=== PATIENT | male | born 1955 | race Caucasian/White ===

== ENCOUNTER 2017-12-28 06:08 | Inpatient (IN) ==
[2017-12-28] MEDS ORDERED: DILTIAZEM 50 MG/10 ML VIAL IV ONE (06:27)
[2017-12-28] MEDS ORDERED: DILTIAZEM 25 MG/5 ML VIAL IV ONE (06:27)
[2017-12-28] MEDS ORDERED: SODIUM CHLORIDE 0.9% 100 ML IV ONE (06:28)
[2017-12-28] MEDS ORDERED: DILTIAZEM 100 MG VIAL.ADD IV ONE (06:28)
[2017-12-28] MEDS ORDERED: DILTIAZEM 50 MG/10 ML VIAL IV STA ×2 (06:35→07:20)
[2017-12-28] MEDS ORDERED: SODIUM CHLORIDE 0.9% 500 ML IV STA (06:35)
[2017-12-28] MEDS ORDERED: DILTIAZEM INJ 100 MG in SODIUM CHLORIDE 0.9% 100 ML IV SCH (07:00)
[2017-12-28 07:02] LABS: Basophils # 0.1 10*3/uL (0.0-0.2); Basophils % 0.7 % (0.0-0.8); Eosinophils % 0.3 % (0.00-10.9); Hematocrit 29.8 VOL% (42.0-52.0); Hemoglobin 10.1 GM/DL (14.0-18.0); Immature Granulocytes % 1.4 %; Immature Granulocytes Absolute 0.13 #; Lymphocytes # 2.3 10*3/uL (1.4-4.0); Lymphocytes % 24.5 % (21.2-54.2); Mean Corpuscular HGB Conc 33.9 GM/DL (32-36); Mean Corpuscular Hemoglobin 32 PG (27-34); Mean Corpuscular Volume 94.9 FL (87-102); Mean Platelet Volume 13.3 FL (9.6-12.0); Monocytes # 4.1 10*3/uL (0.11-0.8); NRBC # 0.34 10*3/uL; Neutrophils # 2.6 10*3/uL (1.4-7.4); Neutrophils % 28.1 % (38.7-73.9); Red Blood Count 3.14 MC/CUMM (3.8-5.5); Red Cell Distribution Width 16.6 % (9.3-17.3); White Blood Count 9.2 T/CUMM (4-12)
[2017-12-28 07:05] LABS: Platelet Count 77 T/CUMM (130-400)
[2017-12-28 07:15] LABS: Albumin 3.5 G/DL (3.4-5.0); Bilirubin,Total 0.4 MG/DL (0.2-1.0); Calcium 9.2 MG/DL (8.5-10.1); Potassium 3.5 MMOL/L (3.5-5.1); Thyroid Stimulating Hormone 1.55 uIU/ml (0.358-3.74); Total Protein 6.9 G/DL (6.4-8.3)
[2017-12-28 07:24] LABS: Band Neutrophils 3 % (0-10); Lymphocytes 56 % (20-55); Segmented Neutrophils 28 % (50-85); Total Cells Counted 100
[2017-12-28 07:26] LABS: Anisocytosis Slight; Macrocytosis 1+; Platelet Estimate Decreased
[2017-12-28 08:16] LABS: Barbiturates Screen,Urine Negative (Negative); Benzodiazepines Screen,Urine Negative (Negative); Cannabinoid Screen,Urine Negative (Negative); Opiate Screen,Urine Negative (Negative); Phencyclidine Screen,Urine Negative (Negative)
[2017-12-28] MEDS ORDERED: LACTULOSE 20 GM/30 ML UDCUP PO PRN (09:28)
[2017-12-28] MEDS ORDERED: ACETAMINOPHEN 325 MG TABLET PO PRN (09:28)
[2017-12-28] MEDS ORDERED: POTASSIUM CHLORIDE RIDER 10 MEQ in PREMIX 1 EACH IV PRN (09:28)
[2017-12-28] MEDS ORDERED: diphenhydrAMINE CAP 25 MG CAPSULE PO PRN (09:28)
[2017-12-28] MEDS ORDERED: ONDANSETRON 4 MG/2 ML VIAL IV PRN (09:28)
[2017-12-28] MEDS ORDERED: MAGNESIUM SULF RIDER 4 GM in PREMIX 1 EACH IV PRN (09:28)
[2017-12-28] MEDS ORDERED: MAGNESIUM SULF RIDER 2 GM in PREMIX 1 EACH IV PRN (09:28)
[2017-12-28 09:45] LABS: Barbiturates Screen,Urine Negative (Negative); Benzodiazepines Screen,Urine Negative (Negative); Cannabinoid Screen,Urine Negative (Negative); Opiate Screen,Urine Negative (Negative); Phencyclidine Screen,Urine Negative (Negative)
[2017-12-28] MEDS ORDERED: ASPIRIN EC 81 MG TABLET PO SCH (10:00)
[2017-12-28] MEDS ORDERED: ALBUTEROL/IPRATROPIUM 3 ML NEB RESP TX PRN (10:50)
[2017-12-28] MEDS ORDERED: DEXTROSE 50% 25 GM/50 ML VIAL IV PRN (11:13)
[2017-12-28] MEDS ORDERED: GLUCAGON 1 MG VIAL IM PRN (11:13)
[2017-12-28] MEDS: ENOXAPARIN 100 MG/ML SYRINGE SUBCUT SCH (11:35)
[2017-12-28] MEDS: POTASSIUM CHLORIDE 20 MEQ TABLET PO PRN ×2 (11:35→15:47)
[2017-12-28] MEDS: INSULIN REGULAR 100 UNIT/ML SUBCUT SCH ×3 (11:38→21:33)
[2017-12-28] MEDS: SODIUM CHLORIDE 0.9% 1,000 ML IV SCH ×2 (11:38→22:50)
[2017-12-28 11:44] LABS: Basophils # 0.1 10*3/uL (0.0-0.2); Basophils % 0.5 % (0.0-0.8); Eosinophils % 0.3 % (0.00-10.9); Hematocrit 31.9 VOL% (42.0-52.0); Hemoglobin 10.6 GM/DL (14.0-18.0); Immature Granulocytes % 1.7 %; Immature Granulocytes Absolute 0.17 #; Lymphocytes # 2.9 10*3/uL (1.4-4.0); Lymphocytes % 28.1 % (21.2-54.2); Mean Corpuscular HGB Conc 33.2 GM/DL (32-36); Mean Corpuscular Hemoglobin 32 PG (27-34); Mean Corpuscular Volume 95.8 FL (87-102); Mean Platelet Volume 12.5 FL (9.6-12.0); Monocytes # 4.6 10*3/uL (0.11-0.8); Monocytes % 44.6 % (1.7-12.7); NRBC # 0.55 10*3/uL; Neutrophils # 2.6 10*3/uL (1.4-7.4); Neutrophils % 24.8 % (38.7-73.9); Red Blood Count 3.33 MC/CUMM (3.8-5.5); Red Cell Distribution Width 16.8 % (9.3-17.3); White Blood Count 10.3 T/CUMM (4-12)
[2017-12-28 11:57] LABS: Platelet Count 88 T/CUMM (130-400)
[2017-12-28] MEDS ORDERED: ENOXAPARIN 40 MG/0.4 ML SYRINGE SUBCUT SCH (12:00)
[2017-12-28 12:29] LABS: Atypical Lymphocytes Moderate; Band Neutrophils 1 % (0-10); Eosinophils 1 % (0-10); Lymphocytes 47 % (20-55); Nucleated Red Blood Cells 8 (0-5); Segmented Neutrophils 29 % (50-85); Total Cells Counted 100
[2017-12-28 12:30] LABS: Macrocytosis 1+; Platelet Estimate Decreased; Polychromasia Slight
[2017-12-28 12:34] LABS: Folate 18.2 NG/ML (5.4-24.0); Vitamin B12 910 PG/ML (211-911)
[2017-12-28 12:57] LABS: Sedimentation Rate-Westergren 97 MM/HR (0-20)
[2017-12-28] MEDS: DILTIAZEM CD 120 MG CAPSULE PO SCH (13:11)
[2017-12-28] MEDS: methylPREDNISolone SOD SUC 40 MG/1 ML VIAL IV SCH (13:12)
[2017-12-28] MEDS: tiZANidine 4 MG TABLET PO SCH ×2 (15:47→21:32)
[2017-12-28] MEDS ORDERED: cycloSPORINE OPH EMUL 1 VIAL BOTH EYES SCH (21:00)
[2017-12-28] MEDS ORDERED: ATORVASTATIN 20 MG TABLET PO SCH (21:00)
[2017-12-28] MEDS ORDERED: BUDESONIDE/FORMOTEROL 160-4.5 INHALER 6 GM INH SCH (21:00)
[2017-12-28] MEDS ORDERED: AMITRIPTYLINE 100 MG TABLET PO SCH (21:00)
[2017-12-28] MEDS: PREGABALIN 100 MG CAPSULE PO SCH (21:32)
[2017-12-29] MEDS: ENOXAPARIN 100 MG/ML SYRINGE SUBCUT SCH (00:02)
[2017-12-29] MEDS: methylPREDNISolone SOD SUC 40 MG/1 ML VIAL IV SCH (00:03)
[2017-12-29 04:59] LABS: Basophils # 0.1 10*3/uL (0.0-0.2); Basophils % 0.7 % (0.0-0.8); Eosinophils % 0.3 % (0.00-10.9); Hematocrit 28.3 VOL% (42.0-52.0); Hemoglobin 9.6 GM/DL (14.0-18.0); Immature Granulocytes % 3.6 %; Immature Granulocytes Absolute 0.33 #; Lymphocytes # 2.4 10*3/uL (1.4-4.0); Lymphocytes % 26.7 % (21.2-54.2); Mean Corpuscular HGB Conc 33.9 GM/DL (32-36); Mean Corpuscular Hemoglobin 32 PG (27-34); Mean Corpuscular Volume 93.7 FL (87-102); Mean Platelet Volume 13.5 FL (9.6-12.0); Monocytes # 2.9 10*3/uL (0.11-0.8); Monocytes % 31.4 % (1.7-12.7); NRBC # 0.35 10*3/uL; Neutrophils # 3.4 10*3/uL (1.4-7.4); Neutrophils % 37.3 % (38.7-73.9); Platelet Count 62 T/CUMM (130-400); Red Blood Count 3.02 MC/CUMM (3.8-5.5); White Blood Count 9.1 T/CUMM (4-12)
[2017-12-29 05:22] LABS: Risk Ratio 3.05; VLDL CHOLESTEROL 19.2 MG/DL
[2017-12-29 05:25] LABS: Albumin 3.3 G/DL (3.4-5.0); Bilirubin,Total 0.7 MG/DL (0.2-1.0); Calcium 9.9 MG/DL (8.5-10.1); Osmolality,Calculated 279.5 MOS/KG (273-304); Potassium 4.5 MMOL/L (3.5-5.1); Total Protein 7.1 G/DL (6.4-8.3)
[2017-12-29 05:35] LABS: Myelocytes 4 %; Nucleated Red Blood Cells 1 (0-5)
[2017-12-29 05:36] LABS: Band Neutrophils 4 % (0-10); Lymphocytes 33 % (20-55); Metamyelocytes 2 %; Segmented Neutrophils 38 % (50-85)
[2017-12-29 05:42] LABS: Total Cells Counted 98
[2017-12-29 05:47] LABS: Anisocytosis 1+; Hypochromasia 1+
[2017-12-29 05:48] LABS: Ovalocytes 1+; Platelet Estimate Decreased
[2017-12-29 07:46] VITALS: BP 121/61
[2017-12-29] MEDS: PREGABALIN 100 MG CAPSULE PO SCH (08:32)
[2017-12-29] MEDS: DILTIAZEM CD 120 MG CAPSULE PO SCH (08:32)
[2017-12-29] MEDS: tiZANidine 4 MG TABLET PO SCH (08:32)
[2017-12-29] MEDS: INSULIN REGULAR 100 UNIT/ML SUBCUT SCH (08:33)
[2017-12-29] MEDS ORDERED: FLUTICASONE 50 MCG NASAL SPRAY 16 GM BOTTLE BOTH NARES SCH (09:00)
[2017-12-29] MEDS ORDERED: PANTOPRAZOLE 40 MG TABLET PO SCH (09:00)
[2017-12-30 09:54] LABS: Hemoglobin A1 (Alkaline) 96.8 % (96.5-98.5); Hemoglobin A2 (Alkaline) 3.2 % (1.5-3.5)
== END 2017-12-29 11:45 | disposition home or self-care (01) | DRG 309 ==
LOC: N.ED 06:08 → N.EDINP 09:28 → N.TELEN 10:45
PROVIDERS: ADMIT Hospitalist; ATTEND Hospitalist

== ENCOUNTER 2017-12-29 16:38 | Inpatient (IN) ==
[2017-12-29] MEDS ORDERED: DILTIAZEM 25 MG/5 ML VIAL IV ONE (16:58)
[2017-12-29] MEDS ORDERED: SODIUM CHLORIDE 0.9% 100 ML IV ONE (17:04)
[2017-12-29] MEDS ORDERED: DILTIAZEM 100 MG VIAL.ADD IV ONE (17:04)
[2017-12-29] MEDS ORDERED: DILTIAZEM 50 MG/10 ML VIAL IV STA ×3 (17:22→18:26)
[2017-12-29] MEDS ORDERED: MORPHINE 4 MG/1 ML VIAL IV STA (17:23)
[2017-12-29] MEDS ORDERED: ONDANSETRON 4 MG/2 ML VIAL IV STA (17:23)
[2017-12-29] MEDS ORDERED: DILTIAZEM INJ 100 MG in SODIUM CHLORIDE 0.9% 100 ML IV SCH (17:30)
[2017-12-29 18:11] LABS: Basophils # 0.1 10*3/uL (0.0-0.2); Basophils % 0.4 % (0.0-0.8); Eosinophils % 0.1 % (0.00-10.9); Hematocrit 28.9 VOL% (42.0-52.0); Hemoglobin 9.8 GM/DL (14.0-18.0); Immature Granulocytes % 4.3 %; Immature Granulocytes Absolute 0.59 #; Lymphocytes # 1.9 10*3/uL (1.4-4.0); Lymphocytes % 14.1 % (21.2-54.2); Mean Corpuscular HGB Conc 33.9 GM/DL (32-36); Mean Corpuscular Hemoglobin 32 PG (27-34); Mean Corpuscular Volume 94.4 FL (87-102); Monocytes # 7.1 10*3/uL (0.11-0.8); Monocytes % 51.8 % (1.7-12.7); NRBC # 0.81 10*3/uL; Neutrophils % 29.3 % (38.7-73.9); Platelet Count 92 T/CUMM (130-400); Red Blood Count 3.06 MC/CUMM (3.8-5.5); Red Cell Distribution Width 16.4 % (9.3-17.3); White Blood Count 13.7 T/CUMM (4-12)
[2017-12-29 18:26] LABS: INR 1.1; PT Patient Result 11.3 SECS; Partial Thromboplastin Time 25.8 SECS (0-40)
[2017-12-29] MEDS ORDERED: FUROSEMIDE 20 MG TABLET PO STA (18:39)
[2017-12-29 18:51] LABS: Albumin 3.6 G/DL (3.4-5.0); Bilirubin,Total 0.5 MG/DL (0.2-1.0); Calcium 9.6 MG/DL (8.5-10.1); Potassium 3.6 MMOL/L (3.5-5.1); Thyroid Stimulating Hormone 0.928 uIU/ml (0.358-3.74); Total Protein 6.8 G/DL (6.4-8.3)
[2017-12-29 19:36] LABS: Apearance,Urine CLEAR (Clear); Bilirubin,Urine Negative (Negative); Blood, Urine Small mg/dL (Negative); Glucose,Urine (UA) Negative (Negative); Hyaline Casts,Urine 5 /LPF (0-3); Ketones,Urine Negative (Negative); Mucus,Urine Occasional /LPF (Occasional); Nitrite,Urine Negative (Negative); Protein,Urine Negative; Urine Color Yellow (Yellow); Urine Specific Gravity 1.011 (1.001-1.035); Urine Urobilinogen < 2.0 EU/DL (0.2-1.0); WBC,Urine 1 /HPF (0-6)
[2017-12-29] MEDS ORDERED: ONDANSETRON 4 MG/2 ML VIAL IV PRN (19:42)
[2017-12-29] MEDS ORDERED: ALBUTEROL 2.5 MG/3 ML NEB RESP TX PRN (19:45)
[2017-12-29] MEDS ORDERED: DILTIAZEM CD 120 MG CAPSULE PO STA (19:49)
[2017-12-29 19:56] LABS: Barbiturates Screen,Urine Negative (Negative); Benzodiazepines Screen,Urine Negative (Negative); Cannabinoid Screen,Urine Negative (Negative); Opiate Screen,Urine Positive (Negative); Phencyclidine Screen,Urine Negative (Negative)
[2017-12-29] MEDS ORDERED: ENOXAPARIN 40 MG/0.4 ML SYRINGE SUBCUT SCH (21:00)
[2017-12-29] MEDS ORDERED: ATORVASTATIN 20 MG TABLET PO SCH (21:00)
[2017-12-29] MEDS ORDERED: ENOXAPARIN 60 MG/0.6 ML SYRINGE SUBCUT ONE ×2 (22:00→23:00)
[2017-12-29] MEDS ORDERED: ASPIRIN EC 325 MG TABLET PO ONE (22:00)
[2017-12-29] MEDS: AMITRIPTYLINE 100 MG TABLET PO SCH (23:00)
[2017-12-29] MEDS: PREGABALIN 100 MG CAPSULE PO SCH (23:00)
[2017-12-29] MEDS: tiZANidine 4 MG TABLET PO SCH (23:00)
[2017-12-29] MEDS ORDERED: ENOXAPARIN 100 MG/ML SYRINGE SUBCUT SCH (23:00)
[2017-12-29] MEDS: BUDESONIDE/FORMOTEROL 160-4.5 INHALER 6 GM INH SCH (23:02)
[2017-12-29] MEDS: cycloSPORINE OPH EMUL 1 VIAL BOTH EYES SCH (23:02)
[2017-12-30 02:50] LABS: Calcium 9.1 MG/DL (8.5-10.1); Osmolality,Calculated 294.7 MOS/KG (273-304); Potassium 3.6 MMOL/L (3.5-5.1)
[2017-12-30] MEDS: ACETAMINOPHEN 325 MG TABLET PO PRN ×2 (03:14→21:24)
[2017-12-30] MEDS ORDERED: TICAGRELOR 90 MG TABLET PO ONE (07:10)
[2017-12-30] MEDS ORDERED: DIAZEPAM 5 MG TABLET PO ONE (07:17)
[2017-12-30] MEDS ORDERED: diphenhydrAMINE CAP 25 MG CAPSULE PO ONE (07:17)
[2017-12-30] MEDS ORDERED: SODIUM CHLORIDE 0.45% 1,000 ML IV SCH (07:30)
[2017-12-30] MEDS: DILTIAZEM CD 240 MG CAPSULE PO SCH ×2 (07:54→08:24)
[2017-12-30] MEDS: PANTOPRAZOLE 40 MG TABLET PO SCH ×2 (07:54→08:25)
[2017-12-30] MEDS: ASPIRIN EC 81 MG TABLET PO SCH (08:24)
[2017-12-30] MEDS: TICAGRELOR 90 MG TABLET PO SCH ×2 (08:24→21:14)
[2017-12-30] MEDS: FLUTICASONE 50 MCG NASAL SPRAY 16 GM BOTTLE BOTH NARES SCH (08:24)
[2017-12-30] MEDS: BUDESONIDE/FORMOTEROL 160-4.5 INHALER 6 GM INH SCH ×3 (08:25→21:27)
[2017-12-30] MEDS: PREGABALIN 100 MG CAPSULE PO SCH ×2 (08:25→21:14)
[2017-12-30] MEDS: cycloSPORINE OPH EMUL 1 VIAL BOTH EYES SCH ×2 (08:25→21:14)
[2017-12-30] MEDS: tiZANidine 4 MG TABLET PO SCH ×3 (08:26→21:14)
[2017-12-30] MEDS ORDERED: LIDOCAINE 1% 20 ML VIAL ONE (08:30)
[2017-12-30] MEDS ORDERED: HEPARIN/NACL 0.9% 2 UNITS/ML 1,000 ML IV ONE (08:30)
[2017-12-30] MEDS ORDERED: ASPIRIN CHEW 81 MG TABLET PO ONE (08:49)
[2017-12-30] MEDS ORDERED: MIDAZOLAM 2 MG/2 ML VIAL ONE ×2 (08:49→09:36)
[2017-12-30] MEDS ORDERED: fentaNYL 100 MCG/2 ML VIAL ONE (08:49)
[2017-12-30] MEDS ORDERED: NITROGLYCERIN DRIP 50 MG/250 ML BOTTLE IV ONE (08:50)
[2017-12-30] MEDS ORDERED: VERAPAMIL 5 MG/2 ML VIAL ONE (08:50)
[2017-12-30 08:57] LABS: Hypochromasia 1+; Lymphocytes 33 % (20-55); Nucleated Red Blood Cells 14 (0-5); Platelet Estimate Decreased; Segmented Neutrophils 24 % (50-85); Total Cells Counted 100
[2017-12-30 08:58] LABS: Macrocytosis Slight; Ovalocytes Slight
[2017-12-30] MEDS ORDERED: ENOXAPARIN 60 MG/0.6 ML SYRINGE ONE (08:59)
[2017-12-30] MEDS ORDERED: MORPHINE 10 MG/1 ML VIAL ONE (09:34)
[2017-12-30] MEDS ORDERED: HEPARIN/NACL 0.9% 2 UNITS/ML 500 ML IV ONE (09:38)
[2017-12-30] MEDS ORDERED: ZALEPLON 5 MG CAPSULE PO PRN (10:16)
[2017-12-30] MEDS ORDERED: MORPHINE 4 MG/1 ML VIAL IV PRN (10:16)
[2017-12-30] MEDS: ATORVASTATIN 40 MG TABLET PO SCH (21:14)
[2017-12-30] MEDS: AMITRIPTYLINE 100 MG TABLET PO SCH (21:14)
[2017-12-31 04:53] LABS: Basophils # 0.1 10*3/uL (0.0-0.2); Basophils % 0.7 % (0.0-0.8); Eosinophils % 0.1 % (0.00-10.9); Hematocrit 25.6 VOL% (42.0-52.0); Hemoglobin 8.4 GM/DL (14.0-18.0); Immature Granulocytes % 2.8 %; Immature Granulocytes Absolute 0.28 #; Lymphocytes # 2.7 10*3/uL (1.4-4.0); Lymphocytes % 27.1 % (21.2-54.2); Mean Corpuscular HGB Conc 32.8 GM/DL (32-36); Mean Corpuscular Hemoglobin 32 PG (27-34); Mean Corpuscular Volume 97.7 FL (87-102); Mean Platelet Volume 13.3 FL (9.6-12.0); Monocytes % 49.9 % (1.7-12.7); NRBC # 0.46 10*3/uL; Neutrophils % 19.4 % (38.7-73.9); Platelet Count 69 T/CUMM (130-400); Red Blood Count 2.62 MC/CUMM (3.8-5.5); Red Cell Distribution Width 17.4 % (9.3-17.3); White Blood Count 10.1 T/CUMM (4-12)
[2017-12-31 05:15] LABS: Band Neutrophils 3 % (0-10); Eosinophils 1 % (0-10); Lymphocytes 50 % (20-55); Nucleated Red Blood Cells 5 (0-5); Segmented Neutrophils 17 % (50-85); Total Cells Counted 100
[2017-12-31 05:16] LABS: Atypical Lymphocytes Few; Hypochromasia 1+; Platelet Estimate Decreased
[2017-12-31 05:17] LABS: Macrocytosis Slight
[2017-12-31 05:23] LABS: Calcium 9.6 MG/DL (8.5-10.1); Osmolality,Calculated 278.5 MOS/KG (273-304); Potassium 3.7 MMOL/L (3.5-5.1)
[2017-12-31 05:24] LABS: Calcium 9.6 MG/DL (8.5-10.1); Osmolality,Calculated 278.5 MOS/KG (273-304); Potassium 3.6 MMOL/L (3.5-5.1)
[2017-12-31] MEDS: DILTIAZEM CD 240 MG CAPSULE PO SCH (08:42)
[2017-12-31] MEDS: PANTOPRAZOLE 40 MG TABLET PO SCH (08:42)
[2017-12-31] MEDS: LISINOPRIL 2.5 MG TABLET PO SCH (08:42)
[2017-12-31] MEDS: PREGABALIN 100 MG CAPSULE PO SCH ×2 (08:42→22:00)
[2017-12-31] MEDS: FLUTICASONE 50 MCG NASAL SPRAY 16 GM BOTTLE BOTH NARES SCH (08:43)
[2017-12-31] MEDS: TICAGRELOR 90 MG TABLET PO SCH ×2 (08:43→21:41)
[2017-12-31] MEDS: BUDESONIDE/FORMOTEROL 160-4.5 INHALER 6 GM INH SCH ×2 (08:43→22:00)
[2017-12-31] MEDS: tiZANidine 4 MG TABLET PO SCH ×3 (08:43→21:41)
[2017-12-31] MEDS: cycloSPORINE OPH EMUL 1 VIAL BOTH EYES SCH ×2 (08:44→22:00)
[2017-12-31] MEDS: sitaGLIPtin 25 MG TABLET PO SCH (12:45)
[2017-12-31] MEDS: ATORVASTATIN 40 MG TABLET PO SCH (21:41)
[2017-12-31] MEDS: AMITRIPTYLINE 100 MG TABLET PO SCH (22:00)
[2018-01-01 04:49] LABS: Basophils % 0.5 % (0.0-0.8); Eosinophils % 0.1 % (0.00-10.9); Hematocrit 24.2 VOL% (42.0-52.0); Hemoglobin 8.4 GM/DL (14.0-18.0); Immature Granulocytes % 1.7 %; Immature Granulocytes Absolute 0.14 #; Lymphocytes # 2.4 10*3/uL (1.4-4.0); Lymphocytes % 28.7 % (21.2-54.2); Mean Corpuscular HGB Conc 34.7 GM/DL (32-36); Mean Corpuscular Hemoglobin 32 PG (27-34); Mean Corpuscular Volume 92.7 FL (87-102); Mean Platelet Volume 13.5 FL (9.6-12.0); Monocytes # 3.9 10*3/uL (0.11-0.8); Monocytes % 47.1 % (1.7-12.7); NRBC # 0.35 10*3/uL; Neutrophils # 1.8 10*3/uL (1.4-7.4); Neutrophils % 21.9 % (38.7-73.9); Platelet Count 62 T/CUMM (130-400); Red Blood Count 2.61 MC/CUMM (3.8-5.5); Red Cell Distribution Width 16.7 % (9.3-17.3); White Blood Count 8.2 T/CUMM (4-12)
[2018-01-01 05:03] LABS: Calcium 8.9 MG/DL (8.5-10.1); Osmolality,Calculated 277.5 MOS/KG (273-304); Potassium 3.4 MMOL/L (3.5-5.1)
[2018-01-01] MEDS: ACETAMINOPHEN 325 MG TABLET PO PRN (05:06)
[2018-01-01 05:12] LABS: Eosinophils 1 % (0-10); Hypochromasia 1+; Lymphocytes 48 % (20-55); Macrocytosis Slight; Nucleated Red Blood Cells 6 (0-5); Ovalocytes Slight; Platelet Estimate Decreased; Segmented Neutrophils 20 % (50-85); Total Cells Counted 100
[2018-01-01 05:15] LABS: Risk Ratio 3.11
[2018-01-01 05:18] LABS: % Iron Saturation 31.3 % (18-50); Total Protein 6.2 G/DL (6.4-8.3)
[2018-01-01 08:16] LABS: Immunoglobulin A (Chem) 220 MG/DL (70-400); Immunoglobulin G (Chem) 675 MG/DL (700-1600); Immunoglobulin M (Chem) 56 MG/DL (40-230); Total Protein (Chem) 6.2 G/DL (6.4-8.3)
[2018-01-01] MEDS: TICAGRELOR 90 MG TABLET PO SCH ×2 (09:02→21:06)
[2018-01-01] MEDS: LISINOPRIL 2.5 MG TABLET PO SCH (09:02)
[2018-01-01] MEDS: tiZANidine 4 MG TABLET PO SCH ×3 (09:02→21:06)
[2018-01-01] MEDS: PREGABALIN 100 MG CAPSULE PO SCH ×2 (09:02→21:06)
[2018-01-01] MEDS: sitaGLIPtin 25 MG TABLET PO SCH (09:02)
[2018-01-01] MEDS: PANTOPRAZOLE 40 MG TABLET PO SCH (09:02)
[2018-01-01] MEDS: DILTIAZEM CD 240 MG CAPSULE PO SCH (09:02)
[2018-01-01] MEDS: BUDESONIDE/FORMOTEROL 160-4.5 INHALER 6 GM INH SCH ×2 (09:03→21:13)
[2018-01-01] MEDS: FLUTICASONE 50 MCG NASAL SPRAY 16 GM BOTTLE BOTH NARES SCH (09:03)
[2018-01-01] MEDS: cycloSPORINE OPH EMUL 1 VIAL BOTH EYES SCH ×2 (09:05→21:13)
[2018-01-01 10:48] LABS: Albumin (SPE) 3.7 G/DL (3.2-5.3); Albumin (SPE) Rel % 59.8 %; Alpha 1 (SPE) 0.3 G/DL (0.1-0.4); Alpha 1 (SPE) Rel % 4.3 %; Alpha 2 (SPE) 0.8 G/DL (0.4-1.0); Alpha 2 (SPE) Rel % 12.3 %; Beta (SPE) 0.6 G/DL (0.5-1.1); Beta (SPE) Rel % 10.6 %; Gamma (SPE) 0.8 G/DL (0.7-1.7)
[2018-01-01] MEDS: POTASSIUM CHLORIDE 20 MEQ TABLET PO PRN ×3 (13:09→17:06)
[2018-01-01] MEDS: AMITRIPTYLINE 100 MG TABLET PO SCH (21:06)
[2018-01-01] MEDS: ATORVASTATIN 40 MG TABLET PO SCH (21:06)
[2018-01-02 03:50] LABS: Calcium 9.3 MG/DL (8.5-10.1); Osmolality,Calculated 274.8 MOS/KG (273-304); Potassium 4.1 MMOL/L (3.5-5.1)
[2018-01-02] MEDS: LISINOPRIL 2.5 MG TABLET PO SCH (08:47)
[2018-01-02] MEDS: ASPIRIN EC 81 MG TABLET PO SCH (08:48)
[2018-01-02] MEDS: FLUTICASONE 50 MCG NASAL SPRAY 16 GM BOTTLE BOTH NARES SCH (08:48)
[2018-01-02] MEDS: sitaGLIPtin 25 MG TABLET PO SCH (08:48)
[2018-01-02] MEDS: tiZANidine 4 MG TABLET PO SCH (08:48)
[2018-01-02] MEDS: TICAGRELOR 90 MG TABLET PO SCH (08:48)
[2018-01-02] MEDS: BUDESONIDE/FORMOTEROL 160-4.5 INHALER 6 GM INH SCH (08:48)
[2018-01-02] MEDS: PREGABALIN 100 MG CAPSULE PO SCH (08:48)
[2018-01-02] MEDS: DILTIAZEM CD 240 MG CAPSULE PO SCH (08:51)
[2018-01-02] MEDS: cycloSPORINE OPH EMUL 1 VIAL BOTH EYES SCH (08:52)
[2018-01-02] MEDS: PANTOPRAZOLE 40 MG TABLET PO SCH (08:52)
[2018-01-02 09:59] LABS: Collection Time,Urine 24 HOURS; Total Protein 24 Hr Ur Result 265 MG/24HR (0-149.1); Total Volume,Urine 2650 ML (400-2000)
[2018-01-02 12:03] VITALS: BP 111/50
[2018-01-02 12:33] LABS: Immuno Free Light Chain Kappa 2.02 MG/DL (0.33-1.94); Immuno Free Light Chain Lambda 1.68 MG/DL (0.57-2.63)
[2018-01-03 09:47] LABS: 24 Hr Protein (Bench) 265 MG/24HR (0-149.1)
== END 2018-01-02 13:57 | disposition home or self-care (01) | DRG 246 ==
LOC: EDBD → EDUNIT# → N.EDINP 16:38 → N.ED 16:38 → SUATTDRO 19:28 → N.TELES 20:24 → SUATTDRO 12-30 08:22 → N.ICU 12-30 10:16 → N.TELES 12-31 19:19
PROVIDERS: ADMIT Internal Medicine; ATTEND Internal Medicine
PROC: CLCCHCL (ICD-10-PCS; 2017-12-30 09:15)

== ENCOUNTER 2018-01-20 17:00 | Inpatient (IN) ==
[2018-01-20 18:11] LABS: Basophils # 0.1 10*3/uL (0.0-0.2); Basophils % 0.5 % (0.0-0.8); Eosinophils % 0.2 % (0.00-10.9); Hematocrit 20.3 VOL% (42.0-52.0); Hemoglobin 6.9 GM/DL (14.0-18.0); Immature Granulocytes % 4.4 %; Immature Granulocytes Absolute 0.73 #; Lymphocytes # 3.1 10*3/uL (1.4-4.0); Lymphocytes % 18.4 % (21.2-54.2); Mean Corpuscular Hemoglobin 32 PG (27-34); Mean Corpuscular Volume 95.3 FL (87-102); Mean Platelet Volume 14.2 FL (9.6-12.0); Monocytes # 9.7 10*3/uL (0.11-0.8); Monocytes % 57.9 % (1.7-12.7); NRBC # 0.56 10*3/uL; Neutrophils # 3.1 10*3/uL (1.4-7.4); Neutrophils % 18.6 % (38.7-73.9); Platelet Count 55 T/CUMM (130-400); Red Blood Count 2.13 MC/CUMM (3.8-5.5); Red Cell Distribution Width 18.4 % (9.3-17.3); White Blood Count 16.7 T/CUMM (4-12)
[2018-01-20 18:22] LABS: INR 1.1; PT Patient Result 11.8 SECS
[2018-01-20 18:32] LABS: Albumin 3.4 G/DL (3.4-5.0); Bilirubin,Total 0.7 MG/DL (0.2-1.0); Calcium 9.7 MG/DL (8.5-10.1); Osmolality,Calculated 276.8 MOS/KG (273-304)
[2018-01-20 18:34] LABS: Apearance,Urine CLEAR (Clear); Bilirubin,Urine Negative (Negative); Blood, Urine Negative (Negative); Glucose,Urine (UA) Negative (Negative); Hyaline Casts,Urine 29 /LPF (0-3); Ketones,Urine Negative (Negative); Mucus,Urine Few /LPF (Occasional); Nitrite,Urine Negative (Negative); Protein,Urine 30 MG/DL; RBC,Urine <1 /HPF (0-4); Urine Color Yellow (Yellow); Urine Specific Gravity 1.014 (1.001-1.035); WBC,Urine 4 /HPF (0-6)
[2018-01-20 18:41] LABS: Barbiturates Screen,Urine Negative (Negative); Benzodiazepines Screen,Urine Negative (Negative); Cannabinoid Screen,Urine Negative (Negative); Opiate Screen,Urine Negative (Negative); Phencyclidine Screen,Urine Negative (Negative)
[2018-01-21 08:14] LABS: Hematocrit 27.2 VOL% (42.0-52.0); Hemoglobin 9.3 GM/DL (14.0-18.0)
[2018-01-21 08:16] LABS: Basophils # 0.1 10*3/uL (0.0-0.2); Basophils % 0.8 % (0.0-0.8); Eosinophils % 0.1 % (0.00-10.9); Hematocrit 27.1 VOL% (42.0-52.0); Hemoglobin 9.4 GM/DL (14.0-18.0); Immature Granulocytes % 5.9 %; Immature Granulocytes Absolute 0.93 #; Lymphocytes # 2.8 10*3/uL (1.4-4.0); Mean Corpuscular HGB Conc 34.7 GM/DL (32-36); Mean Corpuscular Hemoglobin 32 PG (27-34); Mean Corpuscular Volume 93.1 FL (87-102); Monocytes # 7.8 10*3/uL (0.11-0.8); Monocytes % 49.6 % (1.7-12.7); NRBC # 0.51 10*3/uL; Neutrophils % 25.6 % (38.7-73.9); Red Blood Count 2.91 MC/CUMM (3.8-5.5); Red Cell Distribution Width 17.8 % (9.3-17.3); White Blood Count 15.7 T/CUMM (4-12)
[2018-01-21 08:18] LABS: Platelet Count 52 T/CUMM (130-400)
[2018-01-21 08:37] LABS: Calcium 9.8 MG/DL (8.5-10.1); Osmolality,Calculated 279.8 MOS/KG (273-304); Potassium 4.5 MMOL/L (3.5-5.1)
[2018-01-21 08:42] LABS: Atypical Lymphocytes Moderate; Band Neutrophils 1 % (0-10); Lymphocytes 40 % (20-55); Nucleated Red Blood Cells 6 (0-5); Segmented Neutrophils 28 % (50-85); Total Cells Counted 100
[2018-01-21 08:43] LABS: Hypochromasia 1+; Platelet Estimate Decreased
[2018-01-21 09:29] LABS: Hepatitis A Ab IgM Quant 0.16 Index; Hepatitis A Ab IgM Result Negative (Negative); Hepatitis B Core IgM Quant 0.08 Index; Hepatitis B Core IgM Result Negative (Negative); Hepatitis B Surface Ag Quant < 0.10 Index; Hepatitis B Surface Ag Result Negative (Negative); Hepatitis C Virus Ab Quant 0.15 Index; Hepatitis C Virus Ab Result Negative (Negative)
[2018-01-22 06:25] LABS: Basophils # 0.1 10*3/uL (0.0-0.2); Basophils % 0.6 % (0.0-0.8); Eosinophils % 0.1 % (0.00-10.9); Hematocrit 24.4 VOL% (42.0-52.0); Immature Granulocytes % 6.2 %; Immature Granulocytes Absolute 1.11 #; Lymphocytes # 3.1 10*3/uL (1.4-4.0); Lymphocytes % 17.2 % (21.2-54.2); Mean Corpuscular HGB Conc 32.8 GM/DL (32-36); Mean Corpuscular Hemoglobin 32 PG (27-34); Mean Corpuscular Volume 97.2 FL (87-102); Mean Platelet Volume 14.5 FL (9.6-12.0); Monocytes # 9.1 10*3/uL (0.11-0.8); Monocytes % 51.1 % (1.7-12.7); NRBC # 0.84 10*3/uL; Neutrophils # 4.4 10*3/uL (1.4-7.4); Neutrophils % 24.8 % (38.7-73.9); Red Blood Count 2.51 MC/CUMM (3.8-5.5); Red Cell Distribution Width 18.1 % (9.3-17.3); White Blood Count 17.9 T/CUMM (4-12)
[2018-01-22 06:26] LABS: Platelet Count 48 T/CUMM (130-400)
[2018-01-22 06:48] LABS: Atypical Lymphocytes Few; Band Neutrophils 1 % (0-10); Hypochromasia 1+; Lymphocytes 33 % (20-55); Nucleated Red Blood Cells 5 (0-5); Ovalocytes Slight; Platelet Estimate Decreased; Segmented Neutrophils 21 % (50-85); Total Cells Counted 100
[2018-01-22 07:13] LABS: Calcium 9.9 MG/DL (8.5-10.1); Osmolality,Calculated 279.8 MOS/KG (273-304); Potassium 4.5 MMOL/L (3.5-5.1); Troponin I 0.862 NG/ML (0.00-0.045)
[2018-01-22 15:04] VITALS: BP 115/70
== END 2018-01-22 15:05 | disposition home or self-care (01) | DRG 192 ==
LOC: EDUNIT# → EDBD → N.ED 17:00 → SUATTDRO 18:53 → N.EDINP 18:53 → N.CC 19:55 → N.3E 01-21 12:07
PROVIDERS: ADMIT Internal Medicine; ATTEND Internal Medicine

== ENCOUNTER 2018-01-31 16:57 | Inpatient (IN) ==
[2018-01-31 18:41] LABS: Basophils # 0.1 10*3/uL (0.0-0.2); Basophils % 0.3 % (0.0-0.8); Eosinophils % 0.1 % (0.00-10.9); Hematocrit 25.1 VOL% (42.0-52.0); Hemoglobin 8.3 GM/DL (14.0-18.0); Immature Granulocytes % 7.3 %; Lymphocytes % 15.9 % (21.2-54.2); Mean Corpuscular HGB Conc 33.1 GM/DL (32-36); Mean Corpuscular Hemoglobin 33 PG (27-34); Mean Corpuscular Volume 98.4 FL (87-102); Mean Platelet Volume 12.6 FL (9.6-12.0); Monocytes # 10.9 10*3/uL (0.11-0.8); Monocytes % 56.9 % (1.7-12.7); NRBC # 1.15 10*3/uL; Neutrophils # 3.7 10*3/uL (1.4-7.4); Neutrophils % 19.5 % (38.7-73.9); Red Blood Count 2.55 MC/CUMM (3.8-5.5); Red Cell Distribution Width 17.6 % (9.3-17.3); White Blood Count 19.1 T/CUMM (4-12)
[2018-01-31 18:43] LABS: Platelet Count 37 T/CUMM (130-400)
[2018-01-31 18:56] LABS: Apearance,Urine CLEAR (Clear); Bilirubin,Urine Negative (Negative); Blood, Urine Negative (Negative); Glucose,Urine (UA) Negative (Negative); Hyaline Casts,Urine 2 /LPF (0-3); Ketones,Urine 5 mg/dL (Negative); Mucus,Urine Many /LPF (Occasional); Nitrite,Urine Negative (Negative); Protein,Urine 30 MG/DL; Urine Color Amber (Yellow); Urine Specific Gravity 1.027 (1.001-1.035); WBC,Urine 3 /HPF (0-6)
[2018-01-31 18:58] LABS: Albumin 3.3 G/DL (3.4-5.0); Bilirubin,Total 0.8 MG/DL (0.2-1.0); Calcium 10.2 MG/DL (8.5-10.1); Osmolality,Calculated 281.3 MOS/KG (273-304); Potassium 3.9 MMOL/L (3.5-5.1); Total Protein 7.3 G/DL (6.4-8.3)
[2018-01-31 19:05] LABS: Eosinophils 1 % (0-10); Lymphocytes 49 % (20-55); Metamyelocytes 4 %; Myelocytes 3 %; Nucleated Red Blood Cells 14 (0-5); Platelet Estimate Decreased; Segmented Neutrophils 27 % (50-85)
[2018-01-31 19:07] LABS: Atypical Lymphocytes Few; Hypochromasia Slight; Polychromasia Slight
[2018-01-31 19:10] LABS: Total Cells Counted 100
[2018-01-31 19:11] LABS: Macrocytosis 1+
[2018-01-31] MEDS ORDERED: AMMONIA INHALANT 1 EACH AMP INH ONE (20:32)
[2018-01-31] MEDS ORDERED: LACTULOSE 20 GM/30 ML UDCUP PO PRN (21:10)
[2018-01-31] MEDS ORDERED: ONDANSETRON 4 MG/2 ML VIAL IV PRN (21:10)
[2018-01-31] MEDS ORDERED: NICOTINE 21 MG/24 HR PATCH TRANSDERM PRN (21:10)
[2018-01-31] MEDS ORDERED: GLUCAGON 1 MG VIAL IM PRN (21:28)
[2018-01-31] MEDS ORDERED: DEXTROSE 50% 25 GM/50 ML VIAL IV PRN (21:28)
[2018-01-31 22:53] LABS: Alanine Aminotransferase 26 U/L (16-61); Albumin 3.1 G/DL (3.4-5.0); Alkaline Phosphatase 92 U/L (45-117); Aspartate Amino Transferase 98 U/L (0-37); Bilirubin,Direct < 0.100 MG/DL (0.0-0.20); Bilirubin,Indirect 0.8 MG/DL (0.0-1.0); Total Protein 7.7 G/DL (6.4-8.3)
[2018-01-31] MEDS ORDERED: AZITHROMYCIN 500 MG VIAL IV ONE (23:15)
[2018-01-31] MEDS: methylPREDNISolone SOD SUC 40 MG/1 ML VIAL IV SCH (23:20)
[2018-01-31] MEDS: AZITHROMYCIN INJ 250 MG in SODIUM CHLORIDE 0.9% 250 ML IV SCH (23:25)
[2018-01-31] MEDS ORDERED: LACTULOSE 20 GM/30 ML UDCUP PO ONE (23:30)
[2018-01-31 23:36] LABS: Hepatitis A Ab IgM Quant 0.11 Index; Hepatitis A Ab IgM Result Negative (Negative); Hepatitis B Core IgM Quant 0.08 Index; Hepatitis B Core IgM Result Negative (Negative); Hepatitis B Surface Ag Quant 0.16 Index; Hepatitis B Surface Ag Result Negative (Negative); Hepatitis C Virus Ab Quant 0.14 Index; Hepatitis C Virus Ab Result Negative (Negative)
[2018-01-31] MEDS: ALBUTEROL/IPRATROPIUM 3 ML NEB RESP TX SCH (23:42)
[2018-01-31 23:56] LABS: Apearance,Urine CLEAR (Clear); Bilirubin,Urine Negative (Negative); Blood, Urine Negative (Negative); Calcium Oxalate Crystals,Urine Occasional /HPF (Few); Glucose,Urine (UA) Negative (Negative); Hyaline Casts,Urine 6 /LPF (0-3); Ketones,Urine Negative (Negative); Mucus,Urine Occasional /LPF (Occasional); Nitrite,Urine Negative (Negative); Protein,Urine Negative; RBC,Urine 1 /HPF (0-4); Urine Color Yellow (Yellow); Urine Specific Gravity 1.023 (1.001-1.035); WBC,Urine 2 /HPF (0-6)
[2018-01-31 23:59] LABS: Barbiturates Screen,Urine Negative (Negative); Benzodiazepines Screen,Urine Negative (Negative); Cannabinoid Screen,Urine Negative (Negative); Opiate Screen,Urine Negative (Negative); Phencyclidine Screen,Urine Negative (Negative)
[2018-02-01] MEDS: ALBUTEROL/IPRATROPIUM 3 ML NEB RESP TX SCH ×6 (02:54→22:37)
[2018-02-01 05:32] LABS: Basophils # 0.1 10*3/uL (0.0-0.2); Basophils % 0.4 % (0.0-0.8); Eosinophils % 0.1 % (0.00-10.9); Hematocrit 25.1 VOL% (42.0-52.0); Hemoglobin 8.4 GM/DL (14.0-18.0); Immature Granulocytes % 10.2 %; Immature Granulocytes Absolute 1.88 #; Lymphocytes # 3.1 10*3/uL (1.4-4.0); Lymphocytes % 16.7 % (21.2-54.2); Mean Corpuscular HGB Conc 33.5 GM/DL (32-36); Mean Corpuscular Hemoglobin 32 PG (27-34); Mean Corpuscular Volume 96.5 FL (87-102); Monocytes # 8.4 10*3/uL (0.11-0.8); Monocytes % 45.7 % (1.7-12.7); Neutrophils % 26.9 % (38.7-73.9); Red Cell Distribution Width 17.8 % (9.3-17.3); White Blood Count 18.4 T/CUMM (4-12)
[2018-02-01 05:55] LABS: Platelet Count 29 T/CUMM (130-400)
[2018-02-01 06:07] LABS: Albumin 3.2 G/DL (3.4-5.0); Bilirubin,Total 1.2 MG/DL (0.2-1.0); Calcium 9.5 MG/DL (8.5-10.1); Osmolality,Calculated 281.5 MOS/KG (273-304); Potassium 4.3 MMOL/L (3.5-5.1); Risk Ratio 3.54; Total Protein 7.3 G/DL (6.4-8.3); VLDL CHOLESTEROL 22.6 MG/DL
[2018-02-01 06:37] LABS: Lymphocytes 42 % (20-55); Metamyelocytes 1 %; Myelocytes 4 %; Nucleated Red Blood Cells 5 (0-5); Segmented Neutrophils 43 % (50-85); Total Cells Counted 100
[2018-02-01 06:39] LABS: Platelet Estimate Decreased; Polychromasia Few
[2018-02-01] MEDS: PANTOPRAZOLE 40 MG VIAL IV SCH ×2 (08:54→21:00)
[2018-02-01] MEDS: INSULIN REGULAR 100 UNIT/ML SUBCUT SCH ×4 (08:54→20:59)
[2018-02-01] MEDS: methylPREDNISolone SOD SUC 40 MG/1 ML VIAL IV SCH ×3 (10:28→23:30)
[2018-02-01 12:57] LABS: INR 1.1; PT Patient Result 11.4 SECS; Partial Thromboplastin Time 25.6 SECS (0-40)
[2018-02-01] MEDS ORDERED: MORPHINE 4 MG/1 ML VIAL IV ONE (15:02)
[2018-02-01] MEDS ORDERED: NITROGLYCERIN SL 0.4 MG TABLET SL ONE ×2 (15:02→15:07)
[2018-02-01] MEDS ORDERED: MORPHINE 4 MG/1 ML VIAL ONE (15:03)
[2018-02-01] MEDS ORDERED: NITROGLYCERIN SL 0.4 MG TABLET SL PRN (15:07)
[2018-02-01] MEDS ORDERED: LABETALOL 100 MG/20 ML VIAL IV ONE (15:09)
[2018-02-01 15:34] LABS: Troponin I < 0.015 NG/ML (0.00-0.045)
[2018-02-01] MEDS: NICOTINE 14 MG/24 HR PATCH TRANSDERM SCH (15:45)
[2018-02-01] MEDS: diphenhydrAMINE CAP 25 MG CAPSULE PO PRN (21:00)
[2018-02-01 22:45] LABS: Troponin I 0.015 NG/ML (0.00-0.045)
[2018-02-01] MEDS: AZITHROMYCIN INJ 250 MG in SODIUM CHLORIDE 0.9% 250 ML IV SCH (23:33)
[2018-02-02] MEDS: ALBUTEROL/IPRATROPIUM 3 ML NEB RESP TX SCH ×6 (02:25→23:10)
[2018-02-02 05:03] LABS: Troponin I 0.018 NG/ML (0.00-0.045)
[2018-02-02 09:57] LABS: Basophils # 0.1 10*3/uL (0.0-0.2); Basophils % 0.4 % (0.0-0.8); Eosinophils % 0.1 % (0.00-10.9); Hematocrit 24.4 VOL% (42.0-52.0); Hemoglobin 8.2 GM/DL (14.0-18.0); Immature Granulocytes % 10.1 %; Immature Granulocytes Absolute 3.39 #; Lymphocytes # 4.2 10*3/uL (1.4-4.0); Lymphocytes % 12.6 % (21.2-54.2); Mean Corpuscular HGB Conc 33.6 GM/DL (32-36); Mean Corpuscular Hemoglobin 32 PG (27-34); Mean Corpuscular Volume 95.7 FL (87-102); Mean Platelet Volume 13.7 FL (9.6-12.0); Monocytes # 20.1 10*3/uL (0.11-0.8); Monocytes % 59.9 % (1.7-12.7); NRBC # 1.26 10*3/uL; Neutrophils # 5.7 10*3/uL (1.4-7.4); Neutrophils % 16.9 % (38.7-73.9); Red Blood Count 2.55 MC/CUMM (3.8-5.5); Red Cell Distribution Width 17.5 % (9.3-17.3); White Blood Count 33.6 T/CUMM (4-12)
[2018-02-02 10:03] LABS: Platelet Count 38 T/CUMM (130-400)
[2018-02-02 10:21] LABS: Calcium 9.9 MG/DL (8.5-10.1); Osmolality,Calculated 280.7 MOS/KG (273-304); Potassium 3.9 MMOL/L (3.5-5.1)
[2018-02-02 10:25] LABS: Band Neutrophils 3 % (0-10); Hypochromasia 1+; Lymphocytes 19 % (20-55); Metamyelocytes 1 %; Myelocytes 2 %; Nucleated Red Blood Cells 4 (0-5); Platelet Estimate Decreased; Promyelocytes 1 %; Segmented Neutrophils 29 % (50-85); Total Cells Counted 100
[2018-02-02 10:26] LABS: Atypical Lymphocytes Few
[2018-02-02] MEDS: methylPREDNISolone SOD SUC 40 MG/1 ML VIAL IV SCH (11:10)
[2018-02-02] MEDS: BACITRACIN OINT 0.9 GM PACK TOP SCH ×3 (11:21→22:00)
[2018-02-02] MEDS: NICOTINE 14 MG/24 HR PATCH TRANSDERM SCH (11:21)
[2018-02-02] MEDS: PANTOPRAZOLE 40 MG VIAL IV SCH ×2 (11:21→21:49)
[2018-02-02] MEDS: INSULIN REGULAR 100 UNIT/ML SUBCUT SCH ×4 (11:30→21:49)
[2018-02-02] MEDS: POLYETHYLENE GLYCOL POWDER 17 GM PACK PO SCH (16:08)
[2018-02-02] MEDS: diphenhydrAMINE CAP 25 MG CAPSULE PO PRN (21:48)
[2018-02-03] MEDS: methylPREDNISolone SOD SUC 40 MG/1 ML VIAL IV SCH ×2 (00:30→10:54)
[2018-02-03] MEDS: AZITHROMYCIN INJ 250 MG in SODIUM CHLORIDE 0.9% 250 ML IV SCH ×2 (00:33→23:47)
[2018-02-03] MEDS: ALBUTEROL/IPRATROPIUM 3 ML NEB RESP TX SCH ×6 (03:10→23:30)
[2018-02-03 04:29] LABS: Basophils # 0.1 10*3/uL (0.0-0.2); Basophils % 0.4 % (0.0-0.8); Eosinophils % 0.1 % (0.00-10.9); Hematocrit 22.4 VOL% (42.0-52.0); Hemoglobin 7.3 GM/DL (14.0-18.0); Immature Granulocytes % 11.2 %; Immature Granulocytes Absolute 2.63 #; Mean Corpuscular HGB Conc 32.6 GM/DL (32-36); Mean Corpuscular Hemoglobin 32 PG (27-34); Mean Corpuscular Volume 98.2 FL (87-102); Mean Platelet Volume 13.6 FL (9.6-12.0); NRBC # 1.01 10*3/uL; Neutrophils # 4.8 10*3/uL (1.4-7.4); Neutrophils % 20.3 % (38.7-73.9); Red Blood Count 2.28 MC/CUMM (3.8-5.5); Red Cell Distribution Width 17.7 % (9.3-17.3); White Blood Count 23.5 T/CUMM (4-12)
[2018-02-03 04:31] LABS: Platelet Count 29 T/CUMM (130-400)
[2018-02-03 04:45] LABS: Calcium 9.6 MG/DL (8.5-10.1); Osmolality,Calculated 284.4 MOS/KG (273-304); Potassium 4.1 MMOL/L (3.5-5.1)
[2018-02-03 04:57] LABS: Band Neutrophils 1 % (0-10); Eosinophils 1 % (0-10); Lymphocytes 38 % (20-55); Nucleated Red Blood Cells 5 (0-5); Segmented Neutrophils 29 % (50-85); Total Cells Counted 100
[2018-02-03 04:59] LABS: Atypical Lymphocytes Few; Hypochromasia 1+; Polychromasia Slight
[2018-02-03 05:00] LABS: Anisocytosis 1+; Macrocytosis 1+; Tear Drop Cells Slight
[2018-02-03] MEDS ORDERED: SODIUM CHLORIDE 0.9% 1,000 ML IV PRN (08:15)
[2018-02-03] MEDS: INSULIN REGULAR 100 UNIT/ML SUBCUT SCH ×4 (09:58→22:16)
[2018-02-03] MEDS: POLYETHYLENE GLYCOL POWDER 17 GM PACK PO SCH (10:02)
[2018-02-03] MEDS: NICOTINE 14 MG/24 HR PATCH TRANSDERM SCH (10:02)
[2018-02-03] MEDS: PANTOPRAZOLE 40 MG VIAL IV SCH ×2 (10:04→22:14)
[2018-02-03] MEDS: BACITRACIN OINT 0.9 GM PACK TOP SCH ×2 (10:05→22:13)
[2018-02-03] MEDS ORDERED: HEPARIN 5,000 UNIT/1 ML VIAL ONE (11:16)
[2018-02-03] MEDS: diphenhydrAMINE CAP 25 MG CAPSULE PO PRN (22:14)
[2018-02-03] MEDS ORDERED: methylPREDNISolone SOD SUC 40 MG/1 ML VIAL IV SCH (23:00)
[2018-02-04] MEDS: ALBUTEROL/IPRATROPIUM 3 ML NEB RESP TX SCH ×6 (03:30→23:20)
[2018-02-04 03:57] LABS: Basophils # 0.1 10*3/uL (0.0-0.2); Basophils % 0.4 % (0.0-0.8); Eosinophils % 0.1 % (0.00-10.9); Hematocrit 28.5 VOL% (42.0-52.0); Hemoglobin 9.5 GM/DL (14.0-18.0); Immature Granulocytes % 10.4 %; Immature Granulocytes Absolute 3.41 #; Lymphocytes # 4.4 10*3/uL (1.4-4.0); Lymphocytes % 13.2 % (21.2-54.2); Mean Corpuscular HGB Conc 33.3 GM/DL (32-36); Mean Corpuscular Hemoglobin 32 PG (27-34); Mean Corpuscular Volume 94.7 FL (87-102); Monocytes # 18.6 10*3/uL (0.11-0.8); Monocytes % 56.5 % (1.7-12.7); Neutrophils # 6.4 10*3/uL (1.4-7.4); Neutrophils % 19.4 % (38.7-73.9); Red Blood Count 3.01 MC/CUMM (3.8-5.5); Red Cell Distribution Width 18.2 % (9.3-17.3); White Blood Count 32.9 T/CUMM (4-12)
[2018-02-04 04:05] LABS: Platelet Count 28 T/CUMM (130-400)
[2018-02-04 04:13] LABS: Calcium 10.2 MG/DL (8.5-10.1); Osmolality,Calculated 286.3 MOS/KG (273-304); Potassium 4.2 MMOL/L (3.5-5.1)
[2018-02-04 04:24] LABS: Albumin 3.2 G/DL (3.4-5.0); Bilirubin,Total 0.7 MG/DL (0.2-1.0); Calcium 10.1 MG/DL (8.5-10.1); Osmolality,Calculated 284.4 MOS/KG (273-304); Potassium 4.2 MMOL/L (3.5-5.1); Total Protein 6.7 G/DL (6.4-8.3)
[2018-02-04 04:25] LABS: Folate 12.8 NG/ML (5.4-24.0)
[2018-02-04 04:52] LABS: Atypical Lymphocytes Few; Lymphocytes 30 % (20-55); Myelocytes 3 %; Platelet Estimate Decreased; Segmented Neutrophils 20 % (50-85); Total Cells Counted 100
[2018-02-04 04:53] LABS: Polychromasia Few
[2018-02-04] MEDS: INSULIN REGULAR 100 UNIT/ML SUBCUT SCH ×4 (09:24→21:10)
[2018-02-04] MEDS: BACITRACIN OINT 0.9 GM PACK TOP SCH ×2 (09:25→21:09)
[2018-02-04] MEDS: POLYETHYLENE GLYCOL POWDER 17 GM PACK PO SCH (09:26)
[2018-02-04] MEDS: NICOTINE 14 MG/24 HR PATCH TRANSDERM SCH (09:26)
[2018-02-04] MEDS: PANTOPRAZOLE 40 MG VIAL IV SCH ×2 (09:27→22:12)
[2018-02-04] MEDS ORDERED: ATORVASTATIN 20 MG TABLET PO SCH (21:00)
[2018-02-04] MEDS: AZITHROMYCIN INJ 250 MG in SODIUM CHLORIDE 0.9% 250 ML IV SCH (23:39)
[2018-02-05] MEDS: ALBUTEROL/IPRATROPIUM 3 ML NEB RESP TX SCH ×4 (03:30→14:37)
[2018-02-05 04:39] LABS: Basophils # 0.1 10*3/uL (0.0-0.2); Basophils % 0.2 % (0.0-0.8); Hematocrit 27.3 VOL% (42.0-52.0); Hemoglobin 9.2 GM/DL (14.0-18.0); Immature Granulocytes % 7.6 %; Lymphocytes # 4.6 10*3/uL (1.4-4.0); Lymphocytes % 16.6 % (21.2-54.2); Mean Corpuscular HGB Conc 33.7 GM/DL (32-36); Mean Corpuscular Hemoglobin 32 PG (27-34); Mean Corpuscular Volume 94.5 FL (87-102); Monocytes # 15.3 10*3/uL (0.11-0.8); Monocytes % 54.8 % (1.7-12.7); Neutrophils # 5.8 10*3/uL (1.4-7.4); Neutrophils % 20.8 % (38.7-73.9); Red Blood Count 2.89 MC/CUMM (3.8-5.5); Red Cell Distribution Width 17.6 % (9.3-17.3); White Blood Count 27.8 T/CUMM (4-12)
[2018-02-05 05:06] LABS: Platelet Count 23 T/CUMM (130-400)
[2018-02-05 05:11] LABS: Calcium 9.6 MG/DL (8.5-10.1); Osmolality,Calculated 282.4 MOS/KG (273-304); Potassium 3.9 MMOL/L (3.5-5.1)
[2018-02-05 05:18] LABS: Band Neutrophils 5 % (0-10); Lymphocytes 20 % (20-55); Metamyelocytes 3 %; Myelocytes 1 %; Platelet Estimate Decreased; Segmented Neutrophils 14 % (50-85); Total Cells Counted 100
[2018-02-05 05:19] LABS: Anisocytosis 3+; Atypical Lymphocytes 1+; Macrocytosis 2+; Microcytosis 1+
[2018-02-05 05:20] LABS: Ovalocytes Few
[2018-02-05] MEDS ORDERED: SODIUM CHLORIDE 0.9% 1,000 ML IV PRN (07:45)
[2018-02-05] MEDS ORDERED: DILTIAZEM CD 240 MG CAPSULE PO SCH (09:00)
[2018-02-05] MEDS ORDERED: LISINOPRIL 2.5 MG TABLET PO SCH (09:00)
[2018-02-05] MEDS: PANTOPRAZOLE 40 MG VIAL IV SCH (09:55)
[2018-02-05] MEDS: BACITRACIN OINT 0.9 GM PACK TOP SCH (09:55)
[2018-02-05] MEDS: POLYETHYLENE GLYCOL POWDER 17 GM PACK PO SCH (09:55)
[2018-02-05] MEDS: NICOTINE 14 MG/24 HR PATCH TRANSDERM SCH (09:55)
[2018-02-05] MEDS: INSULIN REGULAR 100 UNIT/ML SUBCUT SCH ×3 (09:56→17:25)
[2018-02-05 16:16] VITALS: BP 119/72
== END 2018-02-05 18:15 | disposition hospice, home (50) | DRG 835 ==
LOC: N.ED 16:57 → SUATTDRO 21:13 → N.EDINP 21:13 → N.5E 23:12 → N.TELEN 02-01 15:34
PROVIDERS: ATTEND Hospitalist

== ENCOUNTER 2018-04-30 10:51 | Inpatient (IN) ==
[2018-04-30] MEDS ORDERED: ALBUTEROL NEB SOLN 5 MG/ML 20 ML/BOTTLE CONT NEB STA (11:06)
[2018-04-30] MEDS ORDERED: ACETAMINOPHEN 500 MG TABLET PO STA (11:07)
[2018-04-30 11:14] LABS: Hematocrit 26.4 VOL% (42.0-52.0); Hemoglobin 8.8 GM/DL (14.0-18.0); Lymphocytes # 0.1 10*3/uL (1.4-4.0); Lymphocytes % 93.3 % (21.2-54.2); Mean Corpuscular HGB Conc 33.3 GM/DL (32-36); Mean Corpuscular Hemoglobin 28 PG (27-34); Mean Corpuscular Volume 85.2 FL (87-102); Mean Platelet Volume 10.7 FL (9.6-12.0); Monocytes % 6.7 % (1.7-12.7); Red Cell Distribution Width 14.8 % (9.3-17.3)
[2018-04-30 11:16] LABS: White Blood Count 0.2 T/CUMM (4-12)
[2018-04-30 11:17] LABS: Platelet Count 36 T/CUMM (130-400)
[2018-04-30 11:21] LABS: PT Patient Result 11.3 SECS; Partial Thromboplastin Time 28.2 SECS (0-40)
[2018-04-30 11:30] LABS: Alanine Aminotransferase 20 U/L (16-61); Albumin 3.7 G/DL (3.4-5.0); Alkaline Phosphatase 161 U/L (45-117); Aspartate Amino Transferase 8 U/L (0-37); Blood Urea Nitrogen 14 MG/DL (7-18); Calcium 10.6 MG/DL (8.5-10.1); Glucose 98 MG/DL (74-106); Osmolality,Calculated 275.7 MOS/KG (273-304); Potassium 3.8 MMOL/L (3.5-5.1); Sodium 138 MMOL/L (136-145); Total Protein 8.1 G/DL (6.4-8.3)
[2018-04-30 11:31] LABS: Hypochromasia 1+; Lactic Acid 2.5 MMOL/L (0.4-2.0); Lymphocytes 100 % (20-55); Microcytosis 1+; Ovalocytes Slight; Platelet Estimate Decreased; Total Cells Counted 100
[2018-04-30] MEDS ORDERED: LEVOFLOXACIN INJ 750 MG in PREMIX 1 EACH IV STA (11:33)
[2018-04-30 13:55] LABS: Apearance,Urine CLEAR (Clear); Bilirubin,Urine Negative (Negative); Blood, Urine Negative (Negative); Glucose,Urine (UA) Negative (Negative); Ketones,Urine Negative (Negative); Mucus,Urine Occasional /LPF (Occasional); Nitrite,Urine Negative (Negative); Protein,Urine Negative; RBC,Urine 1 /HPF (0-4); Urine Color Yellow (Yellow); Urine Specific Gravity 1.014 (1.001-1.035); Urine Urobilinogen < 2.0 EU/DL (0.2-1.0); WBC,Urine 1 /HPF (0-6)
[2018-04-30 14:00] LABS: Barbiturates Screen,Urine Negative (Negative); Benzodiazepines Screen,Urine Negative (Negative); Cannabinoid Screen,Urine Negative (Negative); Opiate Screen,Urine Positive (Negative); Phencyclidine Screen,Urine Negative (Negative)
[2018-04-30] MEDS: oxyCODONE/ACETAMINOPHEN 5-325 MG TABLET PO PRN ×2 (15:45→23:20)
[2018-04-30] MEDS ORDERED: VANCOMYCIN INJ 1,000 MG in SODIUM CHLORIDE 0.9% 250 ML IV ONE (16:11)
[2018-04-30] MEDS ORDERED: ALBUTEROL 2.5 MG/3 ML NEB RESP TX PRN (16:21)
[2018-04-30] MEDS ORDERED: NITROGLYCERIN SL 0.4 MG TABLET SL PRN (16:21)
[2018-04-30] MEDS: guaiFENesin 200 MG/10 ML UDCUP PO PRN ×2 (17:05→23:19)
[2018-04-30] MEDS ORDERED: FUROSEMIDE 20 MG/2 ML VIAL IV ONE (17:55)
[2018-04-30] MEDS: MEROPENEM 1,000 MG in SODIUM CHLORIDE 0.9% 100 ML IV SCH (19:03)
[2018-04-30] MEDS: PREGABALIN 100 MG CAPSULE PO SCH (20:26)
[2018-04-30] MEDS: TICAGRELOR 90 MG TABLET PO SCH (20:26)
[2018-04-30] MEDS: AMITRIPTYLINE 100 MG TABLET PO SCH (20:26)
[2018-04-30] MEDS: BENZONATATE 100 MG CAPSULE PO SCH (20:26)
[2018-04-30] MEDS: FLUCONAZOLE 200 MG TABLET PO SCH (20:26)
[2018-04-30] MEDS: cycloSPORINE OPH EMUL 1 VIAL BOTH EYES SCH (20:27)
[2018-04-30] MEDS: BUDESONIDE/FORMOTEROL 160-4.5 INHALER 6 GM INH SCH (20:27)
[2018-04-30] MEDS ORDERED: ALBUTEROL 0.63 MG/3 ML NEB RESP TX SCH (21:00)
[2018-04-30 22:09] LABS: Troponin I 0.069 NG/ML (0.00-0.045)
[2018-05-01] MEDS: MEROPENEM 1,000 MG in SODIUM CHLORIDE 0.9% 100 ML IV SCH ×3 (02:10→17:04)
[2018-05-01 05:31] LABS: Hematocrit 24.8 VOL% (42.0-52.0); Hemoglobin 7.9 GM/DL (14.0-18.0); Lymphocytes # 0.2 10*3/uL (1.4-4.0); Lymphocytes % 89.5 % (21.2-54.2); Mean Corpuscular HGB Conc 31.9 GM/DL (32-36); Mean Corpuscular Hemoglobin 27 PG (27-34); Mean Corpuscular Volume 86.1 FL (87-102); Mean Platelet Volume 11.7 FL (9.6-12.0); Monocytes % 10.5 % (1.7-12.7); Red Blood Count 2.88 MC/CUMM (3.8-5.5); Red Cell Distribution Width 15.1 % (9.3-17.3)
[2018-05-01 05:42] LABS: Platelet Count 22 T/CUMM (130-400); White Blood Count 0.2 T/CUMM (4-12)
[2018-05-01 05:44] LABS: Calcium 9.7 MG/DL (8.5-10.1); Osmolality,Calculated 274.8 MOS/KG (273-304)
[2018-05-01 05:51] LABS: Troponin I 0.131 NG/ML (0.00-0.045)
[2018-05-01 05:52] LABS: Risk Ratio 2.77; Thyroid Stimulating Hormone 0.528 uIU/ml (0.358-3.74)
[2018-05-01 05:55] LABS: Hypochromasia 1+; Lymphocytes 100 % (20-55); Ovalocytes Slight; Tear Drop Cells Slight; Total Cells Counted 100
[2018-05-01 05:56] LABS: Microcytosis 1+; Platelet Estimate Decreased
[2018-05-01] MEDS: guaiFENesin 200 MG/10 ML UDCUP PO PRN (07:21)
[2018-05-01] MEDS ORDERED: POTASSIUM CHLORIDE RIDER 10 MEQ in PREMIX 1 EACH IV PRN (08:06)
[2018-05-01] MEDS ORDERED: SODIUM CHLORIDE 0.9% 1,000 ML IV PRN (08:18)
[2018-05-01] MEDS ORDERED: ATORVASTATIN 40 MG TABLET PO SCH (09:00)
[2018-05-01] MEDS ORDERED: LEVOFLOXACIN INJ 750 MG in PREMIX 1 EACH IV SCH (09:00)
[2018-05-01] MEDS ORDERED: ASPIRIN EC 81 MG TABLET PO SCH (09:00)
[2018-05-01] MEDS: DILTIAZEM CD 240 MG CAPSULE PO SCH (09:23)
[2018-05-01] MEDS: BUDESONIDE/FORMOTEROL 160-4.5 INHALER 6 GM INH SCH ×2 (09:23→20:41)
[2018-05-01] MEDS: VANCOMYCIN INJ 1,000 MG in SODIUM CHLORIDE 0.9% 250 ML IV SCH ×2 (09:23→20:41)
[2018-05-01] MEDS: PREGABALIN 100 MG CAPSULE PO SCH ×2 (09:23→20:41)
[2018-05-01] MEDS: POLYETHYLENE GLYCOL POWDER 17 GM PACK PO SCH (09:23)
[2018-05-01] MEDS: LISINOPRIL 5 MG TABLET PO SCH (09:23)
[2018-05-01] MEDS: cycloSPORINE OPH EMUL 1 VIAL BOTH EYES SCH ×2 (09:24→20:41)
[2018-05-01] MEDS: FLUCONAZOLE 200 MG TABLET PO SCH ×2 (09:24→20:41)
[2018-05-01] MEDS: BENZONATATE 100 MG CAPSULE PO SCH ×3 (09:24→20:41)
[2018-05-01] MEDS: PANTOPRAZOLE 40 MG TABLET PO SCH (09:24)
[2018-05-01] MEDS: guaiFENesin/CODEINE 5 ML LIQUID PO PRN ×4 (09:38→21:58)
[2018-05-01] MEDS: oxyCODONE/ACETAMINOPHEN 5-325 MG TABLET PO PRN ×3 (09:39→21:57)
[2018-05-01] MEDS: ALBUTEROL/IPRATROPIUM 3 ML NEB RESP TX SCH ×4 (11:17→22:46)
[2018-05-01] MEDS: POTASSIUM CHLORIDE 20 MEQ TABLET PO PRN ×3 (14:58→23:16)
[2018-05-01] MEDS: NICOTINE 21 MG/24 HR PATCH TRANSDERM PRN (18:15)
[2018-05-01] MEDS: ACETAMINOPHEN 325 MG TABLET PO PRN (18:17)
[2018-05-01] MEDS: AMITRIPTYLINE 100 MG TABLET PO SCH (20:41)
[2018-05-02] MEDS: MEROPENEM 1,000 MG in SODIUM CHLORIDE 0.9% 100 ML IV SCH ×3 (01:55→20:47)
[2018-05-02] MEDS: POTASSIUM CHLORIDE 20 MEQ TABLET PO PRN (01:56)
[2018-05-02] MEDS: guaiFENesin/CODEINE 5 ML LIQUID PO PRN ×4 (02:01→17:56)
[2018-05-02] MEDS: ALBUTEROL/IPRATROPIUM 3 ML NEB RESP TX SCH ×5 (02:55→19:02)
[2018-05-02 06:15] LABS: Hematocrit 25.2 VOL% (42.0-52.0); Hemoglobin 8.1 GM/DL (14.0-18.0); Lymphocytes # 0.2 10*3/uL (1.4-4.0); Lymphocytes % 66.7 % (21.2-54.2); Mean Corpuscular HGB Conc 32.1 GM/DL (32-36); Mean Corpuscular Hemoglobin 28 PG (27-34); Mean Corpuscular Volume 85.4 FL (87-102); Mean Platelet Volume 11.7 FL (9.6-12.0); Monocytes # 0.1 10*3/uL (0.11-0.8); Monocytes % 33.3 % (1.7-12.7); Red Blood Count 2.95 MC/CUMM (3.8-5.5); Red Cell Distribution Width 14.9 % (9.3-17.3)
[2018-05-02 06:32] LABS: Platelet Count 33 T/CUMM (130-400); White Blood Count 0.2 T/CUMM (4-12)
[2018-05-02 06:40] LABS: Albumin 2.8 G/DL (3.4-5.0); Calcium 9.3 MG/DL (8.5-10.1); Osmolality,Calculated 267.2 MOS/KG (273-304); Potassium 3.9 MMOL/L (3.5-5.1); Total Protein 6.5 G/DL (6.4-8.3)
[2018-05-02] MEDS: oxyCODONE/ACETAMINOPHEN 5-325 MG TABLET PO PRN ×2 (07:01→17:59)
[2018-05-02 07:37] LABS: Eosinophils 10 % (0-10); Hypochromasia 1+; Lymphocytes 70 % (20-55); Microcytosis 1+; Ovalocytes Slight; Total Cells Counted 100
[2018-05-02 07:38] LABS: Platelet Estimate Decreased; Tear Drop Cells Slight
[2018-05-02] MEDS: cycloSPORINE OPH EMUL 1 VIAL BOTH EYES SCH ×2 (08:35→21:42)
[2018-05-02] MEDS: BENZONATATE 100 MG CAPSULE PO SCH ×3 (08:35→21:39)
[2018-05-02] MEDS: LISINOPRIL 5 MG TABLET PO SCH (08:35)
[2018-05-02] MEDS: PANTOPRAZOLE 40 MG TABLET PO SCH (08:35)
[2018-05-02] MEDS: POLYETHYLENE GLYCOL POWDER 17 GM PACK PO SCH (08:35)
[2018-05-02] MEDS: DILTIAZEM CD 240 MG CAPSULE PO SCH (08:35)
[2018-05-02] MEDS: PREGABALIN 100 MG CAPSULE PO SCH ×2 (08:35→21:39)
[2018-05-02] MEDS: FLUCONAZOLE 200 MG TABLET PO SCH (08:35)
[2018-05-02] MEDS: ACETAMINOPHEN 325 MG TABLET PO PRN (08:36)
[2018-05-02] MEDS: FILGRASTIM-SNDZ 300 MCG/0.5 ML SYRINGE SUBCUT SCH (08:36)
[2018-05-02] MEDS: VANCOMYCIN INJ 1,000 MG in SODIUM CHLORIDE 0.9% 250 ML IV SCH ×2 (08:36→21:34)
[2018-05-02] MEDS: HYDROcodone/CHLORPHENIRAMINE ER 5 ML UDCUP PO SCH ×2 (08:36→21:38)
[2018-05-02] MEDS: BUDESONIDE/FORMOTEROL 160-4.5 INHALER 6 GM INH SCH ×2 (08:37→21:40)
[2018-05-02] MEDS: ACYCLOVIR INJ 750 MG in SODIUM CHLORIDE 0.9% 250 ML IV SCH ×2 (10:44→17:56)
[2018-05-02] MEDS: NICOTINE 21 MG/24 HR PATCH TRANSDERM PRN (17:59)
[2018-05-02] MEDS: AMITRIPTYLINE 100 MG TABLET PO SCH (21:39)
[2018-05-03] MEDS: guaiFENesin/CODEINE 5 ML LIQUID PO PRN ×3 (00:51→12:26)
[2018-05-03] MEDS: ACYCLOVIR INJ 750 MG in SODIUM CHLORIDE 0.9% 250 ML IV SCH ×2 (00:56→13:20)
[2018-05-03] MEDS: ALBUTEROL/IPRATROPIUM 3 ML NEB RESP TX SCH ×7 (02:52→23:14)
[2018-05-03 05:11] LABS: Hematocrit 23.5 VOL% (42.0-52.0); Hemoglobin 7.7 GM/DL (14.0-18.0); Immature Granulocytes % 4.8 %; Immature Granulocytes Absolute 0.02 #; Lymphocytes # 0.2 10*3/uL (1.4-4.0); Lymphocytes % 35.7 % (21.2-54.2); Mean Corpuscular HGB Conc 32.8 GM/DL (32-36); Mean Corpuscular Hemoglobin 28 PG (27-34); Mean Corpuscular Volume 85.1 FL (87-102); Mean Platelet Volume 12.1 FL (9.6-12.0); Monocytes # 0.3 10*3/uL (0.11-0.8); Monocytes % 59.5 % (1.7-12.7); Red Blood Count 2.76 MC/CUMM (3.8-5.5)
[2018-05-03 05:21] LABS: White Blood Count 0.4 T/CUMM (4-12)
[2018-05-03 05:22] LABS: Platelet Count 34 T/CUMM (130-400)
[2018-05-03 05:31] LABS: Albumin 2.5 G/DL (3.4-5.0); Bilirubin,Total 0.9 MG/DL (0.2-1.0); Calcium 9.2 MG/DL (8.5-10.1); Osmolality,Calculated 264.4 MOS/KG (273-304); Potassium 3.7 MMOL/L (3.5-5.1); Total Protein 6.2 G/DL (6.4-8.3)
[2018-05-03] MEDS: MEROPENEM 1,000 MG in SODIUM CHLORIDE 0.9% 100 ML IV SCH ×2 (05:57→15:30)
[2018-05-03 06:37] LABS: Lymphocytes 44 % (20-55); Platelet Estimate Decreased; Total Cells Counted 100
[2018-05-03 06:38] LABS: Anisocytosis Slight; Hypochromasia 1+
[2018-05-03] MEDS ORDERED: SODIUM CHLORIDE 0.9% 1,000 ML IV PRN (07:06)
[2018-05-03] MEDS: oxyCODONE/ACETAMINOPHEN 5-325 MG TABLET PO PRN ×2 (07:40→15:29)
[2018-05-03] MEDS: POLYETHYLENE GLYCOL POWDER 17 GM PACK PO SCH (10:00)
[2018-05-03] MEDS: BENZONATATE 100 MG CAPSULE PO SCH ×3 (10:00→21:13)
[2018-05-03] MEDS: BUDESONIDE/FORMOTEROL 160-4.5 INHALER 6 GM INH SCH ×2 (10:00→21:13)
[2018-05-03] MEDS: LISINOPRIL 5 MG TABLET PO SCH (10:00)
[2018-05-03] MEDS: HYDROcodone/CHLORPHENIRAMINE ER 5 ML UDCUP PO SCH ×2 (10:00→21:13)
[2018-05-03] MEDS: FLUCONAZOLE 200 MG TABLET PO SCH (10:00)
[2018-05-03] MEDS: PREGABALIN 100 MG CAPSULE PO SCH ×2 (10:00→21:13)
[2018-05-03] MEDS: PANTOPRAZOLE 40 MG TABLET PO SCH (10:00)
[2018-05-03] MEDS: DILTIAZEM CD 240 MG CAPSULE PO SCH (10:01)
[2018-05-03] MEDS: cycloSPORINE OPH EMUL 1 VIAL BOTH EYES SCH ×2 (10:01→21:21)
[2018-05-03] MEDS: FILGRASTIM-SNDZ 300 MCG/0.5 ML SYRINGE SUBCUT SCH (10:01)
[2018-05-03] MEDS: NICOTINE 21 MG/24 HR PATCH TRANSDERM PRN (10:02)
[2018-05-03] MEDS: VANCOMYCIN INJ 1,500 MG in SODIUM CHLORIDE 0.9% 500 ML IV SCH ×2 (10:02→21:16)
[2018-05-03] MEDS ORDERED: ZALEPLON 5 MG CAPSULE PO PRN (10:35)
[2018-05-03] MEDS: FLUTICASONE 50 MCG NASAL SPRAY 16 GM BOTTLE BOTH NARES PRN (18:23)
[2018-05-03] MEDS: AMITRIPTYLINE 100 MG TABLET PO SCH (21:13)
[2018-05-04] MEDS: guaiFENesin/CODEINE 5 ML LIQUID PO PRN ×4 (00:07→22:41)
[2018-05-04] MEDS: oxyCODONE/ACETAMINOPHEN 5-325 MG TABLET PO PRN ×4 (00:08→22:41)
[2018-05-04] MEDS: ACYCLOVIR INJ 750 MG in SODIUM CHLORIDE 0.9% 250 ML IV SCH ×3 (00:20→20:23)
[2018-05-04] MEDS: MEROPENEM 1,000 MG in SODIUM CHLORIDE 0.9% 100 ML IV SCH ×3 (01:38→23:47)
[2018-05-04] MEDS: ALBUTEROL/IPRATROPIUM 3 ML NEB RESP TX SCH ×5 (02:55→19:18)
[2018-05-04 10:45] LABS: Immature Granulocytes % 8.2 %; Immature Granulocytes Absolute 0.16 #; Lymphocytes # 0.2 10*3/uL (1.4-4.0); Lymphocytes % 10.8 % (21.2-54.2); Mean Corpuscular HGB Conc 33.3 GM/DL (32-36); Mean Corpuscular Hemoglobin 28 PG (27-34); Mean Corpuscular Volume 84.4 FL (87-102); Mean Platelet Volume 11.8 FL (9.6-12.0); Monocytes # 0.7 10*3/uL (0.11-0.8); Monocytes % 37.9 % (1.7-12.7); Neutrophils # 0.8 10*3/uL (1.4-7.4); Neutrophils % 43.1 % (38.7-73.9); Platelet Count 49 T/CUMM (130-400); Red Cell Distribution Width 15.3 % (9.3-17.3)
[2018-05-04] MEDS: FILGRASTIM-SNDZ 300 MCG/0.5 ML SYRINGE SUBCUT SCH (11:11)
[2018-05-04] MEDS: POLYETHYLENE GLYCOL POWDER 17 GM PACK PO SCH (11:11)
[2018-05-04] MEDS: HYDROcodone/CHLORPHENIRAMINE ER 5 ML UDCUP PO SCH ×2 (11:11→20:23)
[2018-05-04] MEDS: NICOTINE 21 MG/24 HR PATCH TRANSDERM PRN (11:11)
[2018-05-04] MEDS: PREGABALIN 100 MG CAPSULE PO SCH ×2 (11:12→20:23)
[2018-05-04] MEDS: DILTIAZEM CD 240 MG CAPSULE PO SCH (11:12)
[2018-05-04] MEDS: BENZONATATE 100 MG CAPSULE PO SCH ×3 (11:12→20:23)
[2018-05-04] MEDS: LISINOPRIL 5 MG TABLET PO SCH (11:13)
[2018-05-04] MEDS: PANTOPRAZOLE 40 MG TABLET PO SCH (11:13)
[2018-05-04] MEDS: FLUCONAZOLE 200 MG TABLET PO SCH (11:13)
[2018-05-04] MEDS: cycloSPORINE OPH EMUL 1 VIAL BOTH EYES SCH ×2 (11:14→20:23)
[2018-05-04] MEDS: BUDESONIDE/FORMOTEROL 160-4.5 INHALER 6 GM INH SCH ×2 (11:14→20:23)
[2018-05-04 11:15] LABS: Band Neutrophils 34 % (0-10); Lymphocytes 22 % (20-55); Metamyelocytes 2 %; Platelet Estimate Decreased; Segmented Neutrophils 11 % (50-85); Total Cells Counted 100
[2018-05-04 11:16] LABS: Anisocytosis Slight; Atypical Lymphocytes Few
[2018-05-04 11:17] LABS: Albumin 2.3 G/DL (3.4-5.0); Calcium 9.2 MG/DL (8.5-10.1); Osmolality,Calculated 257.9 MOS/KG (273-304); Potassium 3.4 MMOL/L (3.5-5.1); Total Protein 6.2 G/DL (6.4-8.3)
[2018-05-04 12:14] LABS: Albumin 2.3 G/DL (3.4-5.0); Calcium 8.6 MG/DL (8.5-10.1); Osmolality,Calculated 260.8 MOS/KG (273-304); Potassium 3.5 MMOL/L (3.5-5.1); Total Protein 5.5 G/DL (6.4-8.3)
[2018-05-04] MEDS ORDERED: MAGNESIUM CITRATE 300 ML BOTTLE PO ONE (13:28)
[2018-05-04] MEDS: VANCOMYCIN INJ 1,500 MG in SODIUM CHLORIDE 0.9% 500 ML IV SCH (14:59)
[2018-05-04] MEDS: MONTELUKAST 10 MG TABLET PO SCH ×2 (15:00→20:23)
[2018-05-04] MEDS: AMITRIPTYLINE 100 MG TABLET PO SCH (20:22)
[2018-05-05] MEDS: ALBUTEROL/IPRATROPIUM 3 ML NEB RESP TX SCH ×7 (00:22→23:17)
[2018-05-05] MEDS: VANCOMYCIN INJ 1,500 MG in SODIUM CHLORIDE 0.9% 500 ML IV SCH ×2 (02:08→14:17)
[2018-05-05] MEDS: MEROPENEM 1,000 MG in SODIUM CHLORIDE 0.9% 100 ML IV SCH ×3 (04:49→20:20)
[2018-05-05] MEDS: ACYCLOVIR INJ 750 MG in SODIUM CHLORIDE 0.9% 250 ML IV SCH (05:28)
[2018-05-05 05:48] LABS: Basophils % 0.4 % (0.0-0.8); Hematocrit 26.3 VOL% (42.0-52.0); Hemoglobin 8.3 GM/DL (14.0-18.0); Immature Granulocytes % 12.8 %; Immature Granulocytes Absolute 0.68 #; Lymphocytes # 0.4 10*3/uL (1.4-4.0); Lymphocytes % 8.3 % (21.2-54.2); Mean Corpuscular HGB Conc 31.6 GM/DL (32-36); Mean Corpuscular Hemoglobin 27 PG (27-34); Mean Corpuscular Volume 86.5 FL (87-102); Mean Platelet Volume 13.2 FL (9.6-12.0); Monocytes # 1.3 10*3/uL (0.11-0.8); Monocytes % 25.1 % (1.7-12.7); NRBC # 0.02 10*3/uL; Neutrophils # 2.8 10*3/uL (1.4-7.4); Neutrophils % 53.4 % (38.7-73.9); Platelet Count 58 T/CUMM (130-400); Red Blood Count 3.04 MC/CUMM (3.8-5.5); Red Cell Distribution Width 15.9 % (9.3-17.3); White Blood Count 5.3 T/CUMM (4-12)
[2018-05-05] MEDS: oxyCODONE/ACETAMINOPHEN 5-325 MG TABLET PO PRN ×3 (06:11→20:17)
[2018-05-05] MEDS: guaiFENesin/CODEINE 5 ML LIQUID PO PRN ×3 (06:11→20:17)
[2018-05-05 06:15] LABS: Calcium 9.3 MG/DL (8.5-10.1); Osmolality,Calculated 263.4 MOS/KG (273-304); Potassium 3.5 MMOL/L (3.5-5.1); Total Protein 5.9 G/DL (6.4-8.3)
[2018-05-05] MEDS: POLYETHYLENE GLYCOL POWDER 17 GM PACK PO SCH (09:32)
[2018-05-05] MEDS: FILGRASTIM-SNDZ 300 MCG/0.5 ML SYRINGE SUBCUT SCH (09:32)
[2018-05-05] MEDS: LISINOPRIL 5 MG TABLET PO SCH (09:32)
[2018-05-05] MEDS: MONTELUKAST 10 MG TABLET PO SCH ×2 (09:32→20:16)
[2018-05-05] MEDS: PANTOPRAZOLE 40 MG TABLET PO SCH (09:32)
[2018-05-05] MEDS: HYDROcodone/CHLORPHENIRAMINE ER 5 ML UDCUP PO SCH ×2 (09:32→20:16)
[2018-05-05] MEDS: DILTIAZEM CD 240 MG CAPSULE PO SCH (09:32)
[2018-05-05] MEDS: FLUCONAZOLE 200 MG TABLET PO SCH (09:33)
[2018-05-05] MEDS: PREGABALIN 100 MG CAPSULE PO SCH ×2 (09:33→20:16)
[2018-05-05] MEDS: cycloSPORINE OPH EMUL 1 VIAL BOTH EYES SCH ×2 (09:33→20:16)
[2018-05-05] MEDS: BENZONATATE 100 MG CAPSULE PO SCH ×3 (09:33→20:16)
[2018-05-05] MEDS: BUDESONIDE/FORMOTEROL 160-4.5 INHALER 6 GM INH SCH ×2 (09:33→20:25)
[2018-05-05] MEDS ORDERED: FUROSEMIDE 20 MG/2 ML VIAL IV ONE (11:21)
[2018-05-05 11:30] LABS: Band Neutrophils 2 % (0-10); Eosinophils 2 % (0-10); Hypochromasia 1+; Lymphocytes 6 % (20-55); Microcytosis 1+; Polychromasia Slight; Segmented Neutrophils 60 % (50-85); Total Cells Counted 100
[2018-05-05 11:31] LABS: Platelet Estimate Decreased
[2018-05-05] MEDS: LEVOFLOXACIN INJ 750 MG in PREMIX 1 EACH IV SCH (11:50)
[2018-05-05] MEDS: AMITRIPTYLINE 100 MG TABLET PO SCH (20:15)
[2018-05-05] MEDS: ATORVASTATIN 40 MG TABLET PO SCH (20:16)
[2018-05-06] MEDS: VANCOMYCIN INJ 1,500 MG in SODIUM CHLORIDE 0.9% 500 ML IV SCH ×2 (02:18→15:12)
[2018-05-06] MEDS: ALBUTEROL/IPRATROPIUM 3 ML NEB RESP TX SCH ×6 (02:59→23:01)
[2018-05-06] MEDS: oxyCODONE/ACETAMINOPHEN 5-325 MG TABLET PO PRN ×3 (03:04→21:31)
[2018-05-06] MEDS: MEROPENEM 1,000 MG in SODIUM CHLORIDE 0.9% 100 ML IV SCH ×3 (05:03→21:33)
[2018-05-06 06:20] LABS: Basophils % 0.3 % (0.0-0.8); Hematocrit 25.3 VOL% (42.0-52.0); Immature Granulocytes % 14.5 %; Immature Granulocytes Absolute 1.58 #; Lymphocytes # 0.5 10*3/uL (1.4-4.0); Lymphocytes % 4.1 % (21.2-54.2); Mean Corpuscular HGB Conc 31.6 GM/DL (32-36); Mean Corpuscular Hemoglobin 28 PG (27-34); Mean Corpuscular Volume 88.5 FL (87-102); Mean Platelet Volume 12.4 FL (9.6-12.0); Monocytes # 2.2 10*3/uL (0.11-0.8); Monocytes % 20.2 % (1.7-12.7); NRBC # 0.03 10*3/uL; Neutrophils # 6.6 10*3/uL (1.4-7.4); Neutrophils % 60.9 % (38.7-73.9); Platelet Count 54 T/CUMM (130-400); Red Blood Count 2.86 MC/CUMM (3.8-5.5); Red Cell Distribution Width 16.1 % (9.3-17.3); White Blood Count 10.9 T/CUMM (4-12)
[2018-05-06 06:44] LABS: Bilirubin,Total 0.8 MG/DL (0.2-1.0); Calcium 9.5 MG/DL (8.5-10.1); Osmolality,Calculated 265.4 MOS/KG (273-304); Potassium 3.4 MMOL/L (3.5-5.1); Total Protein 5.6 G/DL (6.4-8.3)
[2018-05-06 06:53] LABS: Band Neutrophils 1 % (0-10); Lymphocytes 6 % (20-55); Segmented Neutrophils 83 % (50-85); Total Cells Counted 100
[2018-05-06 06:54] LABS: Hypochromasia 1+; Microcytosis 1+; Platelet Estimate Decreased; Polychromasia Few
[2018-05-06] MEDS: NICOTINE 21 MG/24 HR PATCH TRANSDERM PRN (10:05)
[2018-05-06] MEDS: MONTELUKAST 10 MG TABLET PO SCH ×2 (10:06→21:30)
[2018-05-06] MEDS: DILTIAZEM CD 240 MG CAPSULE PO SCH (10:06)
[2018-05-06] MEDS: FLUCONAZOLE 200 MG TABLET PO SCH (10:06)
[2018-05-06] MEDS: LISINOPRIL 5 MG TABLET PO SCH (10:06)
[2018-05-06] MEDS: cycloSPORINE OPH EMUL 1 VIAL BOTH EYES SCH ×2 (10:09→21:30)
[2018-05-06] MEDS: POLYETHYLENE GLYCOL POWDER 17 GM PACK PO SCH (10:09)
[2018-05-06] MEDS: PREGABALIN 100 MG CAPSULE PO SCH ×2 (10:09→21:30)
[2018-05-06] MEDS: PANTOPRAZOLE 40 MG TABLET PO SCH (10:09)
[2018-05-06] MEDS: BUDESONIDE/FORMOTEROL 160-4.5 INHALER 6 GM INH SCH ×2 (10:09→21:33)
[2018-05-06] MEDS: HYDROcodone/CHLORPHENIRAMINE ER 5 ML UDCUP PO SCH ×2 (10:10→21:30)
[2018-05-06] MEDS: BENZONATATE 100 MG CAPSULE PO SCH ×3 (10:10→21:30)
[2018-05-06] MEDS: methylPREDNISolone SOD SUC 40 MG/1 ML VIAL IV SCH ×2 (12:36→23:51)
[2018-05-06] MEDS: LEVOFLOXACIN INJ 750 MG in PREMIX 1 EACH IV SCH (12:41)
[2018-05-06] MEDS: ATORVASTATIN 40 MG TABLET PO SCH (21:30)
[2018-05-06] MEDS: AMITRIPTYLINE 100 MG TABLET PO SCH (21:30)
[2018-05-07] MEDS: VANCOMYCIN INJ 1,500 MG in SODIUM CHLORIDE 0.9% 500 ML IV SCH (01:41)
[2018-05-07] MEDS: ALBUTEROL/IPRATROPIUM 3 ML NEB RESP TX SCH ×6 (03:25→23:53)
[2018-05-07 05:17] LABS: Basophils % 0.3 % (0.0-0.8); Hemoglobin 7.5 GM/DL (14.0-18.0); Immature Granulocytes % 18.1 %; Immature Granulocytes Absolute 2.08 #; Lymphocytes # 0.4 10*3/uL (1.4-4.0); Lymphocytes % 3.7 % (21.2-54.2); Mean Corpuscular HGB Conc 31.3 GM/DL (32-36); Mean Corpuscular Hemoglobin 28 PG (27-34); Mean Corpuscular Volume 88.9 FL (87-102); Mean Platelet Volume 13.7 FL (9.6-12.0); Monocytes # 1.1 10*3/uL (0.11-0.8); Monocytes % 9.7 % (1.7-12.7); NRBC # 0.02 10*3/uL; Neutrophils # 7.8 10*3/uL (1.4-7.4); Neutrophils % 68.2 % (38.7-73.9); Platelet Count 62 T/CUMM (130-400); White Blood Count 11.5 T/CUMM (4-12)
[2018-05-07] MEDS: MEROPENEM 1,000 MG in SODIUM CHLORIDE 0.9% 100 ML IV SCH ×3 (05:27→22:29)
[2018-05-07 05:52] LABS: Albumin 2.1 G/DL (3.4-5.0); Bilirubin,Total 0.8 MG/DL (0.2-1.0); Osmolality,Calculated 280.7 MOS/KG (273-304); Total Protein 5.6 G/DL (6.4-8.3)
[2018-05-07 05:57] LABS: Lymphocytes 10 % (20-55); Myelocytes 1 %; Segmented Neutrophils 80 % (50-85); Total Cells Counted 100
[2018-05-07 05:58] LABS: Hypochromasia 1+; Microcytosis 1+
[2018-05-07 05:59] LABS: Ovalocytes Slight; Platelet Estimate Decreased
[2018-05-07] MEDS ORDERED: SODIUM CHLORIDE 0.9% 1,000 ML IV PRN (06:21)
[2018-05-07] MEDS: POLYETHYLENE GLYCOL POWDER 17 GM PACK PO SCH (09:04)
[2018-05-07] MEDS: FLUCONAZOLE 200 MG TABLET PO SCH (09:05)
[2018-05-07] MEDS: PREGABALIN 100 MG CAPSULE PO SCH ×2 (09:06→21:31)
[2018-05-07] MEDS: LISINOPRIL 5 MG TABLET PO SCH (09:06)
[2018-05-07] MEDS: BENZONATATE 100 MG CAPSULE PO SCH ×3 (09:06→21:30)
[2018-05-07] MEDS: PANTOPRAZOLE 40 MG TABLET PO SCH (09:06)
[2018-05-07] MEDS: DILTIAZEM CD 240 MG CAPSULE PO SCH (09:06)
[2018-05-07] MEDS: MONTELUKAST 10 MG TABLET PO SCH ×2 (09:06→21:30)
[2018-05-07] MEDS: oxyCODONE/ACETAMINOPHEN 5-325 MG TABLET PO PRN ×2 (09:07→19:01)
[2018-05-07] MEDS: BUDESONIDE/FORMOTEROL 160-4.5 INHALER 6 GM INH SCH ×2 (09:11→21:31)
[2018-05-07] MEDS: FLUTICASONE 50 MCG NASAL SPRAY 16 GM BOTTLE BOTH NARES PRN (09:11)
[2018-05-07] MEDS: HYDROcodone/CHLORPHENIRAMINE ER 5 ML UDCUP PO SCH ×2 (09:11→21:30)
[2018-05-07] MEDS ORDERED: FUROSEMIDE 40 MG/4 ML VIAL IV ONE (11:18)
[2018-05-07] MEDS: TICAGRELOR 90 MG TABLET PO SCH ×2 (14:24→21:31)
[2018-05-07] MEDS: guaiFENesin/CODEINE 5 ML LIQUID PO PRN (14:25)
[2018-05-07] MEDS: cycloSPORINE OPH EMUL 1 VIAL BOTH EYES SCH ×2 (14:27→21:31)
[2018-05-07] MEDS: methylPREDNISolone SOD SUC 40 MG/1 ML VIAL IV SCH (14:29)
[2018-05-07] MEDS: LEVOFLOXACIN INJ 750 MG in PREMIX 1 EACH IV SCH (14:39)
[2018-05-07] MEDS: AMITRIPTYLINE 100 MG TABLET PO SCH (21:30)
[2018-05-07] MEDS: ATORVASTATIN 40 MG TABLET PO SCH (21:31)
[2018-05-08] MEDS: methylPREDNISolone SOD SUC 40 MG/1 ML VIAL IV SCH ×3 (00:12→21:55)
[2018-05-08] MEDS: VANCOMYCIN INJ 1,500 MG in SODIUM CHLORIDE 0.9% 500 ML IV SCH (00:14)
[2018-05-08] MEDS: ALBUTEROL/IPRATROPIUM 3 ML NEB RESP TX SCH ×6 (02:39→23:57)
[2018-05-08] MEDS: MEROPENEM 1,000 MG in SODIUM CHLORIDE 0.9% 100 ML IV SCH ×3 (05:48→21:58)
[2018-05-08 07:33] LABS: Basophils # 0.1 10*3/uL (0.0-0.2); Basophils % 0.4 % (0.0-0.8); Hematocrit 29.6 VOL% (42.0-52.0); Immature Granulocytes % 23.6 %; Immature Granulocytes Absolute 5.71 #; Lymphocytes % 4.3 % (21.2-54.2); Mean Corpuscular HGB Conc 32.1 GM/DL (32-36); Mean Corpuscular Hemoglobin 28 PG (27-34); Mean Corpuscular Volume 88.1 FL (87-102); Mean Platelet Volume 13.7 FL (9.6-12.0); Monocytes % 8.2 % (1.7-12.7); NRBC # 0.07 10*3/uL; Neutrophils # 15.4 10*3/uL (1.4-7.4); Neutrophils % 63.5 % (38.7-73.9); Platelet Count 104 T/CUMM (130-400)
[2018-05-08 07:35] LABS: Hemoglobin 9.5 GM/DL (14.0-18.0); Red Blood Count 3.36 MC/CUMM (3.8-5.5); White Blood Count 24.2 T/CUMM (4-12)
[2018-05-08 07:47] LABS: Calcium 10.4 MG/DL (8.5-10.1); Osmolality,Calculated 282.5 MOS/KG (273-304); Potassium 4.4 MMOL/L (3.5-5.1)
[2018-05-08] MEDS ORDERED: FUROSEMIDE 20 MG/2 ML VIAL IV ONE (07:48)
[2018-05-08 08:17] LABS: Lymphocytes 1 % (20-55); Segmented Neutrophils 83 % (50-85); Total Cells Counted 100
[2018-05-08 08:18] LABS: Hypochromasia 1+
[2018-05-08 08:19] LABS: Platelet Estimate Decreased; Polychromasia Slight
[2018-05-08 08:20] LABS: Giant Platelets Few
[2018-05-08] MEDS: HYDROcodone/CHLORPHENIRAMINE ER 5 ML UDCUP PO SCH ×2 (12:59→22:00)
[2018-05-08] MEDS: oxyCODONE/ACETAMINOPHEN 5-325 MG TABLET PO PRN (12:59)
[2018-05-08] MEDS: FLUCONAZOLE 200 MG TABLET PO SCH (13:00)
[2018-05-08] MEDS: TICAGRELOR 90 MG TABLET PO SCH ×2 (13:01→22:00)
[2018-05-08] MEDS: PREGABALIN 100 MG CAPSULE PO SCH ×2 (13:01→22:00)
[2018-05-08] MEDS: BENZONATATE 100 MG CAPSULE PO SCH ×3 (13:02→22:00)
[2018-05-08] MEDS: PANTOPRAZOLE 40 MG TABLET PO SCH (13:02)
[2018-05-08] MEDS: MONTELUKAST 10 MG TABLET PO SCH ×2 (13:02→22:00)
[2018-05-08] MEDS: DILTIAZEM CD 240 MG CAPSULE PO SCH (13:03)
[2018-05-08] MEDS: LISINOPRIL 5 MG TABLET PO SCH (13:03)
[2018-05-08] MEDS: cycloSPORINE OPH EMUL 1 VIAL BOTH EYES SCH ×2 (13:04→22:01)
[2018-05-08] MEDS: BUDESONIDE/FORMOTEROL 160-4.5 INHALER 6 GM INH SCH ×2 (13:06→22:00)
[2018-05-08] MEDS: POLYETHYLENE GLYCOL POWDER 17 GM PACK PO SCH (13:47)
[2018-05-08] MEDS: LEVOFLOXACIN INJ 750 MG in PREMIX 1 EACH IV SCH (13:50)
[2018-05-08] MEDS: AMITRIPTYLINE 100 MG TABLET PO SCH (22:00)
[2018-05-08] MEDS: ATORVASTATIN 40 MG TABLET PO SCH (22:00)
[2018-05-09] MEDS: ALBUTEROL/IPRATROPIUM 3 ML NEB RESP TX SCH ×6 (03:16→22:42)
[2018-05-09 05:05] LABS: Basophils # 0.1 10*3/uL (0.0-0.2); Basophils % 0.4 % (0.0-0.8); Hematocrit 30.2 VOL% (42.0-52.0); Hemoglobin 9.6 GM/DL (14.0-18.0); Immature Granulocytes % 29.4 %; Immature Granulocytes Absolute 8.39 #; Lymphocytes # 0.9 10*3/uL (1.4-4.0); Lymphocytes % 3.1 % (21.2-54.2); Mean Corpuscular HGB Conc 31.8 GM/DL (32-36); Mean Corpuscular Hemoglobin 28 PG (27-34); Mean Corpuscular Volume 89.3 FL (87-102); Mean Platelet Volume 13.1 FL (9.6-12.0); Monocytes # 2.6 10*3/uL (0.11-0.8); Monocytes % 9.2 % (1.7-12.7); NRBC # 0.12 10*3/uL; Neutrophils # 16.5 10*3/uL (1.4-7.4); Neutrophils % 57.9 % (38.7-73.9); Platelet Count 114 T/CUMM (130-400); Red Blood Count 3.38 MC/CUMM (3.8-5.5); Red Cell Distribution Width 16.5 % (9.3-17.3); White Blood Count 28.6 T/CUMM (4-12)
[2018-05-09 05:39] LABS: Osmolality,Calculated 287.1 MOS/KG (273-304); Potassium 4.2 MMOL/L (3.5-5.1)
[2018-05-09] MEDS: MEROPENEM 1,000 MG in SODIUM CHLORIDE 0.9% 100 ML IV SCH ×3 (05:52→21:37)
[2018-05-09 05:59] LABS: Band Neutrophils 15 % (0-10); Lymphocytes 9 % (20-55); Metamyelocytes 2 %; Myelocytes 4 %; Nucleated Red Blood Cells 40 (0-5); Platelet Estimate Decreased; Polychromasia Few; Segmented Neutrophils 66 % (50-85); Total Cells Counted 100
[2018-05-09] MEDS ORDERED: FUROSEMIDE 40 MG/4 ML VIAL IV ONE (09:48)
[2018-05-09] MEDS: MONTELUKAST 10 MG TABLET PO SCH ×2 (13:09→21:39)
[2018-05-09] MEDS: BENZONATATE 100 MG CAPSULE PO SCH ×3 (13:09→21:39)
[2018-05-09] MEDS: HYDROcodone/CHLORPHENIRAMINE ER 5 ML UDCUP PO SCH ×2 (13:09→21:40)
[2018-05-09] MEDS: oxyCODONE/ACETAMINOPHEN 5-325 MG TABLET PO PRN (13:10)
[2018-05-09] MEDS: LISINOPRIL 5 MG TABLET PO SCH (13:10)
[2018-05-09] MEDS: FLUCONAZOLE 200 MG TABLET PO SCH (13:11)
[2018-05-09] MEDS: TICAGRELOR 90 MG TABLET PO SCH ×2 (13:11→21:38)
[2018-05-09] MEDS: DILTIAZEM CD 240 MG CAPSULE PO SCH (13:11)
[2018-05-09] MEDS: PREGABALIN 100 MG CAPSULE PO SCH ×2 (13:16→21:39)
[2018-05-09] MEDS: POLYETHYLENE GLYCOL POWDER 17 GM PACK PO SCH (13:16)
[2018-05-09] MEDS: BUDESONIDE/FORMOTEROL 160-4.5 INHALER 6 GM INH SCH ×2 (13:20→21:40)
[2018-05-09] MEDS: methylPREDNISolone SOD SUC 40 MG/1 ML VIAL IV SCH ×2 (13:38→21:33)
[2018-05-09] MEDS: PANTOPRAZOLE 40 MG TABLET PO SCH (13:43)
[2018-05-09] MEDS: cycloSPORINE OPH EMUL 1 VIAL BOTH EYES SCH ×2 (13:43→21:39)
[2018-05-09] MEDS: LEVOFLOXACIN INJ 750 MG in PREMIX 1 EACH IV SCH (17:33)
[2018-05-09] MEDS: AMITRIPTYLINE 100 MG TABLET PO SCH (21:38)
[2018-05-09] MEDS: ATORVASTATIN 40 MG TABLET PO SCH (21:39)
[2018-05-09] MEDS: FLUTICASONE 50 MCG NASAL SPRAY 16 GM BOTTLE BOTH NARES PRN (21:44)
[2018-05-10] MEDS: ALBUTEROL/IPRATROPIUM 3 ML NEB RESP TX SCH ×6 (02:35→22:30)
[2018-05-10] MEDS: MEROPENEM 1,000 MG in SODIUM CHLORIDE 0.9% 100 ML IV SCH ×3 (05:37→22:40)
[2018-05-10 08:39] LABS: Basophils # 0.1 10*3/uL (0.0-0.2); Basophils % 0.5 % (0.0-0.8); Hematocrit 32.1 VOL% (42.0-52.0); Immature Granulocytes % 32.8 %; Immature Granulocytes Absolute 10.09 #; Lymphocytes # 0.9 10*3/uL (1.4-4.0); Lymphocytes % 2.9 % (21.2-54.2); Mean Corpuscular HGB Conc 31.2 GM/DL (32-36); Mean Corpuscular Hemoglobin 28 PG (27-34); Mean Corpuscular Volume 89.9 FL (87-102); Mean Platelet Volume 12.9 FL (9.6-12.0); Monocytes # 2.3 10*3/uL (0.11-0.8); Monocytes % 7.4 % (1.7-12.7); NRBC # 0.13 10*3/uL; Neutrophils # 17.4 10*3/uL (1.4-7.4); Neutrophils % 56.4 % (38.7-73.9); Platelet Count 158 T/CUMM (130-400); Red Blood Count 3.57 MC/CUMM (3.8-5.5); Red Cell Distribution Width 16.6 % (9.3-17.3); White Blood Count 30.8 T/CUMM (4-12)
[2018-05-10 09:10] LABS: Calcium 9.5 MG/DL (8.5-10.1); Osmolality,Calculated 286.3 MOS/KG (273-304); Potassium 4.3 MMOL/L (3.5-5.1)
[2018-05-10 09:28] LABS: Band Neutrophils 9 % (0-10); Lymphocytes 11 % (20-55); Myelocytes 1 %; Promyelocytes 2 %; Segmented Neutrophils 69 % (50-85); Total Cells Counted 100
[2018-05-10 09:29] LABS: Anisocytosis 1+; Hypochromasia 1+; Microcytosis 1+
[2018-05-10 09:30] LABS: Ovalocytes Few; Platelet Estimate Adequate; Polychromasia Slight
[2018-05-10] MEDS: TICAGRELOR 90 MG TABLET PO SCH ×2 (09:53→22:38)
[2018-05-10] MEDS: PREGABALIN 100 MG CAPSULE PO SCH ×2 (09:53→22:38)
[2018-05-10] MEDS: MONTELUKAST 10 MG TABLET PO SCH ×2 (09:53→22:38)
[2018-05-10] MEDS: PANTOPRAZOLE 40 MG TABLET PO SCH (09:53)
[2018-05-10] MEDS: LISINOPRIL 5 MG TABLET PO SCH (09:53)
[2018-05-10] MEDS: POLYETHYLENE GLYCOL POWDER 17 GM PACK PO SCH (09:54)
[2018-05-10] MEDS: DILTIAZEM CD 240 MG CAPSULE PO SCH (09:54)
[2018-05-10] MEDS: HYDROcodone/CHLORPHENIRAMINE ER 5 ML UDCUP PO SCH ×2 (09:54→22:38)
[2018-05-10] MEDS: methylPREDNISolone SOD SUC 40 MG/1 ML VIAL IV SCH ×2 (09:54→22:42)
[2018-05-10] MEDS: BENZONATATE 100 MG CAPSULE PO SCH ×3 (09:54→22:38)
[2018-05-10] MEDS: BUDESONIDE/FORMOTEROL 160-4.5 INHALER 6 GM INH SCH ×2 (09:55→22:44)
[2018-05-10] MEDS: cycloSPORINE OPH EMUL 1 VIAL BOTH EYES SCH ×2 (09:56→22:51)
[2018-05-10] MEDS ORDERED: FUROSEMIDE 20 MG/2 ML VIAL IV ONE (11:22)
[2018-05-10] MEDS ORDERED: FUROSEMIDE 40 MG/4 ML VIAL IV ONE (11:23)
[2018-05-10] MEDS: LEVOFLOXACIN INJ 750 MG in PREMIX 1 EACH IV SCH (13:27)
[2018-05-10] MEDS: AMITRIPTYLINE 100 MG TABLET PO SCH (22:38)
[2018-05-10] MEDS: ATORVASTATIN 40 MG TABLET PO SCH (22:51)
[2018-05-11] MEDS: ALBUTEROL/IPRATROPIUM 3 ML NEB RESP TX SCH ×5 (02:35→19:53)
[2018-05-11] MEDS: MEROPENEM 1,000 MG in SODIUM CHLORIDE 0.9% 100 ML IV SCH ×3 (04:18→20:43)
[2018-05-11 05:52] LABS: Calcium 9.4 MG/DL (8.5-10.1); Osmolality,Calculated 280.7 MOS/KG (273-304); Potassium 4.1 MMOL/L (3.5-5.1)
[2018-05-11] MEDS ORDERED: FUROSEMIDE 40 MG/4 ML VIAL IV SCH (09:00)
[2018-05-11] MEDS: methylPREDNISolone SOD SUC 40 MG/1 ML VIAL IV SCH (09:02)
[2018-05-11] MEDS: cycloSPORINE OPH EMUL 1 VIAL BOTH EYES SCH ×2 (09:04→21:26)
[2018-05-11] MEDS: POLYETHYLENE GLYCOL POWDER 17 GM PACK PO SCH ×2 (09:04→09:11)
[2018-05-11] MEDS: LISINOPRIL 5 MG TABLET PO SCH (09:04)
[2018-05-11] MEDS: FUROSEMIDE 40 MG/4 ML VIAL IV SCH ×2 (09:04→16:07)
[2018-05-11] MEDS: BENZONATATE 100 MG CAPSULE PO SCH ×3 (09:05→20:44)
[2018-05-11] MEDS: PREGABALIN 100 MG CAPSULE PO SCH ×2 (09:05→20:45)
[2018-05-11] MEDS: DILTIAZEM CD 240 MG CAPSULE PO SCH (09:05)
[2018-05-11] MEDS: PANTOPRAZOLE 40 MG TABLET PO SCH (09:05)
[2018-05-11] MEDS: TICAGRELOR 90 MG TABLET PO SCH ×2 (09:05→20:44)
[2018-05-11] MEDS: MONTELUKAST 10 MG TABLET PO SCH ×2 (09:05→20:44)
[2018-05-11] MEDS: BUDESONIDE/FORMOTEROL 160-4.5 INHALER 6 GM INH SCH ×2 (09:06→20:45)
[2018-05-11] MEDS: HYDROcodone/CHLORPHENIRAMINE ER 5 ML UDCUP PO SCH ×2 (09:06→20:44)
[2018-05-11] MEDS: predniSONE 20 MG TABLET PO SCH (09:12)
[2018-05-11 10:37] LABS: Basophils # 0.1 10*3/uL (0.0-0.2); Basophils % 0.4 % (0.0-0.8); Hematocrit 33.8 VOL% (42.0-52.0); Hemoglobin 10.5 GM/DL (14.0-18.0); Immature Granulocytes % 30.3 %; Immature Granulocytes Absolute 9.06 #; Lymphocytes # 0.8 10*3/uL (1.4-4.0); Lymphocytes % 2.7 % (21.2-54.2); Mean Corpuscular HGB Conc 31.1 GM/DL (32-36); Mean Corpuscular Hemoglobin 29 PG (27-34); Mean Corpuscular Volume 92.1 FL (87-102); Mean Platelet Volume 13.2 FL (9.6-12.0); Monocytes # 2.2 10*3/uL (0.11-0.8); Monocytes % 7.2 % (1.7-12.7); NRBC # 0.11 10*3/uL; Neutrophils # 17.7 10*3/uL (1.4-7.4); Neutrophils % 59.4 % (38.7-73.9); Platelet Count 187 T/CUMM (130-400); Red Blood Count 3.67 MC/CUMM (3.8-5.5); Red Cell Distribution Width 16.4 % (9.3-17.3); White Blood Count 29.9 T/CUMM (4-12)
[2018-05-11 12:03] LABS: Band Neutrophils 8 % (0-10); Lymphocytes 9 % (20-55); Metamyelocytes 2 %; Myelocytes 3 %; Segmented Neutrophils 75 % (50-85); Total Cells Counted 100
[2018-05-11 12:04] LABS: Hypochromasia 1+; Microcytosis 1+
[2018-05-11 12:05] LABS: Anisocytosis 1+
[2018-05-11 12:06] LABS: Ovalocytes Slight; Platelet Estimate Adequate; Polychromasia Slight
[2018-05-11] MEDS: LEVOFLOXACIN INJ 750 MG in PREMIX 1 EACH IV SCH (12:29)
[2018-05-11] MEDS: ATORVASTATIN 40 MG TABLET PO SCH (20:44)
[2018-05-11] MEDS: AMITRIPTYLINE 100 MG TABLET PO SCH (20:44)
[2018-05-12] MEDS: ALBUTEROL/IPRATROPIUM 3 ML NEB RESP TX SCH ×6 (00:15→19:47)
[2018-05-12 04:59] LABS: Basophils # 0.2 10*3/uL (0.0-0.2); Basophils % 0.6 % (0.0-0.8); Hematocrit 35.9 VOL% (42.0-52.0); Hemoglobin 10.9 GM/DL (14.0-18.0); Immature Granulocytes % 29.2 %; Lymphocytes # 1.1 10*3/uL (1.4-4.0); Lymphocytes % 3.8 % (21.2-54.2); Mean Corpuscular HGB Conc 30.4 GM/DL (32-36); Mean Corpuscular Hemoglobin 28 PG (27-34); Mean Corpuscular Volume 91.1 FL (87-102); Mean Platelet Volume 12.8 FL (9.6-12.0); Monocytes # 2.6 10*3/uL (0.11-0.8); Monocytes % 8.9 % (1.7-12.7); NRBC # 0.08 10*3/uL; Neutrophils # 16.6 10*3/uL (1.4-7.4); Neutrophils % 57.5 % (38.7-73.9); Platelet Count 209 T/CUMM (130-400); Red Blood Count 3.94 MC/CUMM (3.8-5.5); Red Cell Distribution Width 17.2 % (9.3-17.3); White Blood Count 28.8 T/CUMM (4-12)
[2018-05-12] MEDS: MEROPENEM 1,000 MG in SODIUM CHLORIDE 0.9% 100 ML IV SCH ×2 (05:10→14:29)
[2018-05-12 05:11] LABS: Calcium 9.8 MG/DL (8.5-10.1); Osmolality,Calculated 287.1 MOS/KG (273-304); Potassium 3.6 MMOL/L (3.5-5.1)
[2018-05-12 07:40] LABS: Band Neutrophils 22 % (0-10); Lymphocytes 10 % (20-55); Nucleated Red Blood Cells 1 (0-5); Platelet Estimate Normal; Segmented Neutrophils 62 % (50-85); Total Cells Counted 100
[2018-05-12 07:42] LABS: Anisocytosis Slight; Macrocytosis Slight
[2018-05-12] MEDS: FUROSEMIDE 40 MG/4 ML VIAL IV SCH (11:00)
[2018-05-12] MEDS: PANTOPRAZOLE 40 MG TABLET PO SCH (11:02)
[2018-05-12] MEDS: MONTELUKAST 10 MG TABLET PO SCH ×2 (11:02→20:48)
[2018-05-12] MEDS: POLYETHYLENE GLYCOL POWDER 17 GM PACK PO SCH (11:02)
[2018-05-12] MEDS: HYDROcodone/CHLORPHENIRAMINE ER 5 ML UDCUP PO SCH ×2 (11:02→20:48)
[2018-05-12] MEDS: POTASSIUM CHLORIDE 20 MEQ TABLET PO PRN (11:03)
[2018-05-12] MEDS: PREGABALIN 100 MG CAPSULE PO SCH ×2 (11:03→20:48)
[2018-05-12] MEDS: LISINOPRIL 5 MG TABLET PO SCH (11:03)
[2018-05-12] MEDS: TICAGRELOR 90 MG TABLET PO SCH ×2 (11:04→20:48)
[2018-05-12] MEDS: BENZONATATE 100 MG CAPSULE PO SCH ×3 (11:04→20:48)
[2018-05-12] MEDS: DILTIAZEM CD 240 MG CAPSULE PO SCH (11:04)
[2018-05-12] MEDS: BUDESONIDE/FORMOTEROL 160-4.5 INHALER 6 GM INH SCH ×2 (11:05→20:49)
[2018-05-12] MEDS: predniSONE 20 MG TABLET PO SCH (11:21)
[2018-05-12] MEDS: cycloSPORINE OPH EMUL 1 VIAL BOTH EYES SCH ×2 (11:21→20:48)
[2018-05-12] MEDS: LEVOFLOXACIN INJ 750 MG in PREMIX 1 EACH IV SCH (14:27)
[2018-05-12] MEDS: AMITRIPTYLINE 100 MG TABLET PO SCH (20:48)
[2018-05-12] MEDS: ATORVASTATIN 40 MG TABLET PO SCH (20:48)
[2018-05-13] MEDS: ALBUTEROL/IPRATROPIUM 3 ML NEB RESP TX SCH ×7 (00:23→23:00)
[2018-05-13 05:38] LABS: Calcium 10.1 MG/DL (8.5-10.1); Osmolality,Calculated 285.3 MOS/KG (273-304)
[2018-05-13 05:57] LABS: Basophils # 0.2 10*3/uL (0.0-0.2); Basophils % 0.7 % (0.0-0.8); Hematocrit 40.5 VOL% (42.0-52.0); Hemoglobin 12.3 GM/DL (14.0-18.0); Immature Granulocytes % 23.2 %; Immature Granulocytes Absolute 5.14 #; Lymphocytes # 0.7 10*3/uL (1.4-4.0); Lymphocytes % 3.3 % (21.2-54.2); Mean Corpuscular HGB Conc 30.4 GM/DL (32-36); Mean Corpuscular Hemoglobin 28 PG (27-34); Mean Corpuscular Volume 92.3 FL (87-102); Mean Platelet Volume 12.5 FL (9.6-12.0); Monocytes # 1.8 10*3/uL (0.11-0.8); Monocytes % 8.2 % (1.7-12.7); NRBC # 0.06 10*3/uL; Neutrophils # 14.3 10*3/uL (1.4-7.4); Neutrophils % 64.6 % (38.7-73.9); Platelet Count 214 T/CUMM (130-400); Red Blood Count 4.39 MC/CUMM (3.8-5.5); Red Cell Distribution Width 18.1 % (9.3-17.3); White Blood Count 22.1 T/CUMM (4-12)
[2018-05-13 08:01] LABS: Band Neutrophils 8 % (0-10); Lymphocytes 5 % (20-55); Metamyelocytes 5 %; Myelocytes 2 %; Platelet Estimate Normal; Segmented Neutrophils 72 % (50-85); Total Cells Counted 100
[2018-05-13] MEDS: HYDROcodone/CHLORPHENIRAMINE ER 5 ML UDCUP PO SCH ×2 (09:15→20:26)
[2018-05-13] MEDS: predniSONE 20 MG TABLET PO SCH (09:16)
[2018-05-13] MEDS: MONTELUKAST 10 MG TABLET PO SCH ×2 (09:16→20:26)
[2018-05-13] MEDS: TICAGRELOR 90 MG TABLET PO SCH ×2 (09:16→20:26)
[2018-05-13] MEDS: LISINOPRIL 5 MG TABLET PO SCH (09:16)
[2018-05-13] MEDS: PANTOPRAZOLE 40 MG TABLET PO SCH (09:16)
[2018-05-13] MEDS: PREGABALIN 100 MG CAPSULE PO SCH ×2 (09:16→20:26)
[2018-05-13] MEDS: BENZONATATE 100 MG CAPSULE PO SCH ×3 (09:16→20:26)
[2018-05-13] MEDS: DILTIAZEM CD 240 MG CAPSULE PO SCH (09:17)
[2018-05-13] MEDS: cycloSPORINE OPH EMUL 1 VIAL BOTH EYES SCH ×2 (09:17→20:26)
[2018-05-13] MEDS: POLYETHYLENE GLYCOL POWDER 17 GM PACK PO SCH (09:17)
[2018-05-13] MEDS: FUROSEMIDE 40 MG/4 ML VIAL IV SCH (09:18)
[2018-05-13] MEDS: BUDESONIDE/FORMOTEROL 160-4.5 INHALER 6 GM INH SCH ×2 (09:21→20:26)
[2018-05-13] MEDS ORDERED: LEVOFLOXACIN 750 MG TABLET PO SCH (17:00)
[2018-05-13] MEDS: ATORVASTATIN 40 MG TABLET PO SCH (20:26)
[2018-05-13] MEDS: AMITRIPTYLINE 100 MG TABLET PO SCH (20:26)
[2018-05-14] MEDS: ALBUTEROL/IPRATROPIUM 3 ML NEB RESP TX SCH ×2 (03:00→10:38)
[2018-05-14] MEDS: POLYETHYLENE GLYCOL POWDER 17 GM PACK PO SCH (10:26)
[2018-05-14] MEDS: HYDROcodone/CHLORPHENIRAMINE ER 5 ML UDCUP PO SCH (10:26)
[2018-05-14] MEDS: DILTIAZEM CD 240 MG CAPSULE PO SCH (10:27)
[2018-05-14] MEDS: predniSONE 20 MG TABLET PO SCH (10:27)
[2018-05-14] MEDS: PREGABALIN 100 MG CAPSULE PO SCH (10:27)
[2018-05-14] MEDS: BENZONATATE 100 MG CAPSULE PO SCH ×2 (10:27→14:31)
[2018-05-14] MEDS: TICAGRELOR 90 MG TABLET PO SCH (10:27)
[2018-05-14] MEDS: MONTELUKAST 10 MG TABLET PO SCH (10:28)
[2018-05-14] MEDS: FUROSEMIDE 40 MG/4 ML VIAL IV SCH (10:28)
[2018-05-14] MEDS: LISINOPRIL 5 MG TABLET PO SCH (10:28)
[2018-05-14] MEDS: PANTOPRAZOLE 40 MG TABLET PO SCH (10:28)
[2018-05-14] MEDS: BUDESONIDE/FORMOTEROL 160-4.5 INHALER 6 GM INH SCH (10:32)
[2018-05-14] MEDS: cycloSPORINE OPH EMUL 1 VIAL BOTH EYES SCH (10:39)
[2018-05-14] MEDS: oxyCODONE/ACETAMINOPHEN 5-325 MG TABLET PO PRN (14:31)
[2018-05-14 16:01] VITALS: BP 119/75
== END 2018-05-14 16:13 | disposition home or self-care (01) | DRG 808 ==
LOC: N.ED 10:51 → SUATTDRO 12:35 → N.EDINP 12:35 → N.4E 13:59 → N.2W 05-14 17:08
PROVIDERS: ADMIT Internal Medicine; ATTEND Hospitalist

== ENCOUNTER 2018-06-16 09:38 | Inpatient (IN) ==
[2018-06-16] MEDS ORDERED: ALBUTEROL/IPRATROPIUM 3 ML NEB RESP TX STA (10:00)
[2018-06-16] MEDS ORDERED: ALUM/MAG/SIMETH/LIDO VISC 1:1 30 ML BOTTLE PO STA (10:00)
[2018-06-16] MEDS ORDERED: methylPREDNISolone SOD SUC 125 MG/2 ML VIAL IV STA (10:00)
[2018-06-16] MEDS ORDERED: ONDANSETRON 4 MG/2 ML VIAL IV STA (10:00)
[2018-06-16] MEDS ORDERED: ASPIRIN 325 MG TABLET PO STA (10:00)
[2018-06-16] MEDS ORDERED: NITROGLYCERIN 2% OINT 1 INCH/GM PACK TOP STA (10:00)
[2018-06-16 10:15] LABS: Hematocrit 21.1 VOL% (42.0-52.0); Hemoglobin 7.3 GM/DL (14.0-18.0); Lymphocytes # 0.1 10*3/uL (1.4-4.0); Lymphocytes % 93.3 % (21.2-54.2); Mean Corpuscular HGB Conc 34.6 GM/DL (32-36); Mean Corpuscular Hemoglobin 29 PG (27-34); Mean Corpuscular Volume 83.7 FL (87-102); Mean Platelet Volume 12.4 FL (9.6-12.0); Neutrophils % 6.7 % (38.7-73.9); Red Blood Count 2.52 MC/CUMM (3.8-5.5); Red Cell Distribution Width 14.2 % (9.3-17.3)
[2018-06-16 10:21] LABS: Platelet Count 14 T/CUMM (130-400); White Blood Count 0.2 T/CUMM (4-12)
[2018-06-16 10:26] LABS: INR 1.1; PT Patient Result 11.8 SECS
[2018-06-16] MEDS ORDERED: DILTIAZEM 50 MG/10 ML VIAL IV STA (10:32)
[2018-06-16 10:36] LABS: Eosinophils 10 % (0-10); Hypochromasia 1+; Lymphocytes 90 % (20-55); Total Cells Counted 100
[2018-06-16 10:37] LABS: Microcytosis Slight; Ovalocytes Slight; Platelet Estimate Decreased
[2018-06-16 10:50] LABS: Alanine Aminotransferase 288 U/L (16-61); Albumin 3.2 G/DL (3.4-5.0); Alkaline Phosphatase 161 U/L (45-117); Aspartate Amino Transferase 91 U/L (0-37); Blood Urea Nitrogen 18 MG/DL (7-18); Calcium 9.5 MG/DL (8.5-10.1); Glucose 158 MG/DL (74-106); Lipase < 50.0 U/L (73-393); Osmolality,Calculated 287.1 MOS/KG (273-304); Potassium 3.3 MMOL/L (3.5-5.1); Sodium 142 MMOL/L (136-145); Total Protein 6.3 G/DL (6.4-8.3)
[2018-06-16] MEDS ORDERED: DILTIAZEM 25 MG/5 ML VIAL IV ONE (10:50)
[2018-06-16] MEDS ORDERED: FUROSEMIDE 40 MG/4 ML VIAL IV STA (10:58)
[2018-06-16] MEDS ORDERED: dilTIAZem Drip 125 MG/125 ML PREMIX IV SCH (11:00)
[2018-06-16] MEDS ORDERED: METOPROLOL TARTRATE 5 MG/5 ML VIAL IV STA (11:13)
[2018-06-16] MEDS ORDERED: METOPROLOL TARTRATE 5 MG/5 ML VIAL IV ONE (11:14)
[2018-06-16] MEDS ORDERED: MAGNESIUM SULF RIDER 4 GM in PREMIX 1 EACH IV PRN (11:17)
[2018-06-16] MEDS ORDERED: MAGNESIUM SULF RIDER 2 GM in PREMIX 1 EACH IV PRN (11:17)
[2018-06-16] MEDS ORDERED: POTASSIUM CHLORIDE RIDER 10 MEQ in PREMIX 1 EACH IV PRN (11:17)
[2018-06-16] MEDS ORDERED: NITROGLYCERIN SL 0.4 MG TABLET SL PRN (11:22)
[2018-06-16] MEDS ORDERED: POLYETHYLENE GLYCOL POWDER 17 GM PACK PO PRN (11:22)
[2018-06-16] MEDS ORDERED: LACTATED RINGERS 500 ML IV ONE (11:31)
[2018-06-16] MEDS ORDERED: AMIODARONE INJ 450 MG in DEXTROSE 5% 241 ML IV SCH ×2 (12:00→20:00)
[2018-06-16] MEDS ORDERED: diphenhydrAMINE 50 MG/1 ML VIAL IV PRN (13:28)
[2018-06-16] MEDS ORDERED: SODIUM CHLORIDE 0.9% 1,000 ML IV PRN (13:28)
[2018-06-16] MEDS ORDERED: FUROSEMIDE 40 MG/4 ML VIAL IV ONE (13:29)
[2018-06-16] MEDS ORDERED: DEXTROSE 50% 25 GM/50 ML SYRINGE IV PRN (13:33)
[2018-06-16] MEDS ORDERED: GLUCAGON 1 MG VIAL IM PRN (13:33)
[2018-06-16] MEDS ORDERED: NICOTINE 21 MG/24 HR PATCH TRANSDERM PRN (14:12)
[2018-06-16 14:15] LABS: Apearance,Urine Slightly Hazy (Clear); Bilirubin,Urine Negative (Negative); Blood, Urine Small mg/dL (Negative); Glucose,Urine (UA) Negative (Negative); Ketones,Urine Negative (Negative); Nitrite,Urine Negative (Negative); Protein,Urine 30 MG/DL; Urine Color Amber (Yellow); Urine Specific Gravity 1.023 (1.001-1.035)
[2018-06-16 14:19] LABS: RBC,Urine Occasional /HPF (0-4); WBC,Urine 2 /HPF (0-6)
[2018-06-16 14:20] LABS: Bacteria,Urine Few /HPF (Few); Squamous Epithelial Cell,Urine Occasional /HPF (0-10)
[2018-06-16] MEDS: methylPREDNISolone SOD SUC 40 MG/1 ML VIAL IV SCH ×2 (14:45→22:03)
[2018-06-16] MEDS ORDERED: DILTIAZEM 30 MG TABLET PO ONE (14:55)
[2018-06-16 15:12] LABS: Barbiturates Screen,Urine Negative (Negative); Benzodiazepines Screen,Urine Negative (Negative); Cannabinoid Screen,Urine Negative (Negative); Opiate Screen,Urine Negative (Negative); Phencyclidine Screen,Urine Negative (Negative)
[2018-06-16] MEDS: ISOSORBIDE DINITRATE 10 MG TABLET PO SCH ×2 (15:33→22:02)
[2018-06-16] MEDS: INSULIN REGULAR 100 UNIT/ML SUBCUT SCH ×2 (18:21→22:42)
[2018-06-16] MEDS: DILTIAZEM 30 MG TABLET PO SCH ×2 (18:21→21:59)
[2018-06-16] MEDS: FILGRASTIM-SNDZ 300 MCG/0.5 ML SYRINGE SUBCUT SCH (19:12)
[2018-06-16] MEDS: ALBUTEROL 0.63 MG/3 ML NEB RESP TX SCH (19:53)
[2018-06-16] MEDS ORDERED: TICAGRELOR 90 MG TABLET PO SCH (21:00)
[2018-06-16] MEDS: AMITRIPTYLINE 100 MG TABLET PO SCH (21:59)
[2018-06-16] MEDS: PREGABALIN 100 MG CAPSULE PO SCH (21:59)
[2018-06-16] MEDS: FUROSEMIDE 40 MG/4 ML VIAL IV SCH (22:00)
[2018-06-16] MEDS: cycloSPORINE OPH EMUL 1 VIAL BOTH EYES SCH (22:02)
[2018-06-16] MEDS: BUDESONIDE/FORMOTEROL 160-4.5 INHALER 6 GM INH SCH (22:02)
[2018-06-16] MEDS: FLUTICASONE 50 MCG NASAL SPRAY 16 GM BOTTLE BOTH NARES SCH (22:02)
[2018-06-17] MEDS: methylPREDNISolone SOD SUC 40 MG/1 ML VIAL IV SCH ×2 (01:50→08:36)
[2018-06-17] MEDS: ALBUTEROL 0.63 MG/3 ML NEB RESP TX SCH ×2 (07:47→20:14)
[2018-06-17] MEDS: LEVOFLOXACIN INJ 500 MG in PREMIX 1 EACH IV SCH (08:32)
[2018-06-17] MEDS: tiZANidine 4 MG TABLET PO PRN (08:33)
[2018-06-17] MEDS: PREGABALIN 100 MG CAPSULE PO SCH ×2 (08:33→20:29)
[2018-06-17] MEDS: METOPROLOL TARTRATE 25 MG TABLET PO SCH ×2 (08:33→20:29)
[2018-06-17] MEDS: sitaGLIPtin 25 MG TABLET PO SCH (08:34)
[2018-06-17] MEDS: AMIODARONE 200 MG TABLET PO SCH ×2 (08:35→20:28)
[2018-06-17] MEDS: DILTIAZEM CD 240 MG CAPSULE PO SCH (08:35)
[2018-06-17] MEDS: PANTOPRAZOLE 40 MG TABLET PO SCH (08:36)
[2018-06-17] MEDS: INSULIN REGULAR 100 UNIT/ML SUBCUT SCH ×4 (08:38→22:27)
[2018-06-17] MEDS: FUROSEMIDE 40 MG/4 ML VIAL IV SCH ×2 (08:39→16:49)
[2018-06-17] MEDS: cycloSPORINE OPH EMUL 1 VIAL BOTH EYES SCH ×2 (08:41→20:29)
[2018-06-17] MEDS: BUDESONIDE/FORMOTEROL 160-4.5 INHALER 6 GM INH SCH ×2 (08:41→20:29)
[2018-06-17] MEDS: FLUTICASONE 50 MCG NASAL SPRAY 16 GM BOTTLE BOTH NARES SCH ×2 (08:42→20:29)
[2018-06-17] MEDS ORDERED: ASPIRIN CHEW 81 MG TABLET PO SCH (09:00)
[2018-06-17] MEDS ORDERED: ASPIRIN EC 81 MG TABLET PO SCH (09:00)
[2018-06-17] MEDS ORDERED: ATORVASTATIN 40 MG TABLET PO SCH (09:00)
[2018-06-17] MEDS ORDERED: METOPROLOL SUCCINATE XL 25 MG TABLET PO SCH (09:00)
[2018-06-17] MEDS ORDERED: LISINOPRIL 5 MG TABLET PO SCH (09:00)
[2018-06-17 09:04] LABS: Hematocrit 25.7 VOL% (42.0-52.0); Hemoglobin 8.7 GM/DL (14.0-18.0); Mean Corpuscular Hemoglobin 29 PG (27-34); Mean Corpuscular Volume 86.2 FL (87-102); Red Blood Count 2.98 MC/CUMM (3.8-5.5)
[2018-06-17 09:05] LABS: Lymphocytes # 0.1 10*3/uL (1.4-4.0); Lymphocytes % 85.7 % (21.2-54.2); Mean Corpuscular HGB Conc 33.9 GM/DL (32-36); Mean Platelet Volume 10.8 FL (9.6-12.0); Monocytes % 14.3 % (1.7-12.7); Red Cell Distribution Width 14.4 % (9.3-17.3)
[2018-06-17 09:13] LABS: Platelet Count 20 T/CUMM (130-400); White Blood Count 0.1 T/CUMM (4-12)
[2018-06-17 09:17] LABS: Calcium 9.9 MG/DL (8.5-10.1); Osmolality,Calculated 286.5 MOS/KG (273-304); Potassium 3.6 MMOL/L (3.5-5.1)
[2018-06-17] MEDS: FILGRASTIM-SNDZ 300 MCG/0.5 ML SYRINGE SUBCUT SCH (09:46)
[2018-06-17 10:26] LABS: Lymphocytes 80 % (20-55); Total Cells Counted 100
[2018-06-17 10:27] LABS: Hypochromasia 1+; Microcytosis 1+; Ovalocytes Slight; Platelet Estimate Decreased; Tear Drop Cells Slight
[2018-06-17] MEDS: traMADol 50 MG TABLET PO PRN (16:50)
[2018-06-17] MEDS: AMITRIPTYLINE 100 MG TABLET PO SCH (20:29)
[2018-06-18 06:05] LABS: Hemoglobin 7.5 GM/DL (14.0-18.0); Lymphocytes # 0.1 10*3/uL (1.4-4.0); Lymphocytes % 61.5 % (21.2-54.2); Mean Corpuscular HGB Conc 34.1 GM/DL (32-36); Mean Corpuscular Hemoglobin 29 PG (27-34); Mean Corpuscular Volume 84.9 FL (87-102); Monocytes % 23.1 % (1.7-12.7); Neutrophils % 15.4 % (38.7-73.9); Red Blood Count 2.59 MC/CUMM (3.8-5.5); Red Cell Distribution Width 14.3 % (9.3-17.3)
[2018-06-18 06:13] LABS: White Blood Count 0.1 T/CUMM (4-12)
[2018-06-18 06:14] LABS: Platelet Count 7 T/CUMM (130-400)
[2018-06-18 06:30] LABS: Calcium 9.5 MG/DL (8.5-10.1); Osmolality,Calculated 282.5 MOS/KG (273-304); Potassium 3.6 MMOL/L (3.5-5.1)
[2018-06-18] MEDS: methylPREDNISolone SOD SUC 40 MG/1 ML VIAL IV SCH (06:36)
[2018-06-18 06:41] LABS: Hypochromasia 1+; Lymphocytes 80 % (20-55); Microcytosis 1+; Ovalocytes Slight; Total Cells Counted 100
[2018-06-18 06:42] LABS: Platelet Estimate Decreased; Spherocytes Slight
[2018-06-18] MEDS: traMADol 50 MG TABLET PO PRN ×2 (06:57→15:58)
[2018-06-18] MEDS ORDERED: SODIUM CHLORIDE 0.9% 1,000 ML IV PRN (07:50)
[2018-06-18] MEDS: ALBUTEROL 0.63 MG/3 ML NEB RESP TX SCH ×2 (08:36→19:14)
[2018-06-18] MEDS: BUDESONIDE/FORMOTEROL 160-4.5 INHALER 6 GM INH SCH ×2 (09:54→22:13)
[2018-06-18] MEDS: FLUTICASONE 50 MCG NASAL SPRAY 16 GM BOTTLE BOTH NARES SCH ×2 (09:54→22:11)
[2018-06-18] MEDS: sitaGLIPtin 25 MG TABLET PO SCH (09:55)
[2018-06-18] MEDS: AMIODARONE 200 MG TABLET PO SCH ×2 (09:57→22:20)
[2018-06-18] MEDS: DILTIAZEM CD 240 MG CAPSULE PO SCH (09:57)
[2018-06-18] MEDS: PANTOPRAZOLE 40 MG TABLET PO SCH (09:58)
[2018-06-18] MEDS: PREGABALIN 100 MG CAPSULE PO SCH ×2 (09:58→22:20)
[2018-06-18] MEDS: METOPROLOL TARTRATE 25 MG TABLET PO SCH ×2 (09:58→22:11)
[2018-06-18] MEDS: INSULIN REGULAR 100 UNIT/ML SUBCUT SCH ×4 (09:59→22:14)
[2018-06-18] MEDS: cycloSPORINE OPH EMUL 1 VIAL BOTH EYES SCH ×2 (09:59→22:13)
[2018-06-18] MEDS: LEVOFLOXACIN INJ 500 MG in PREMIX 1 EACH IV SCH (10:01)
[2018-06-18] MEDS: FILGRASTIM-SNDZ 300 MCG/0.5 ML SYRINGE SUBCUT SCH (10:57)
[2018-06-18] MEDS: FUROSEMIDE 40 MG/4 ML VIAL IV SCH ×2 (16:56→23:10)
[2018-06-18] MEDS ORDERED: LORazepam 2 MG/1 ML VIAL IV PRN (19:28)
[2018-06-18] MEDS: AMITRIPTYLINE 100 MG TABLET PO SCH (22:20)
[2018-06-19] MEDS ORDERED: ACETAMINOPHEN 325 MG TABLET PO ONE (00:46)
[2018-06-19] MEDS: traMADol 50 MG TABLET PO PRN (01:58)
[2018-06-19 05:37] LABS: Hematocrit 26.2 VOL% (42.0-52.0); Hemoglobin 8.9 GM/DL (14.0-18.0); Immature Granulocytes % 2.1 %; Immature Granulocytes Absolute 0.01 #; Lymphocytes # 0.2 10*3/uL (1.4-4.0); Lymphocytes % 36.2 % (21.2-54.2); Mean Corpuscular Hemoglobin 29 PG (27-34); Mean Corpuscular Volume 86.2 FL (87-102); Mean Platelet Volume 11.4 FL (9.6-12.0); Monocytes # 0.1 10*3/uL (0.11-0.8); Monocytes % 29.8 % (1.7-12.7); Neutrophils # 0.2 10*3/uL (1.4-7.4); Neutrophils % 31.9 % (38.7-73.9); Red Blood Count 3.04 MC/CUMM (3.8-5.5); Red Cell Distribution Width 14.3 % (9.3-17.3)
[2018-06-19 05:58] LABS: White Blood Count 0.5 T/CUMM (4-12)
[2018-06-19 05:59] LABS: Platelet Count 18 T/CUMM (130-400)
[2018-06-19 06:02] LABS: Lymphocytes 67 % (20-55); Platelet Estimate Decreased; Total Cells Counted 100
[2018-06-19] MEDS: ALBUTEROL 0.63 MG/3 ML NEB RESP TX SCH ×2 (07:03→20:06)
[2018-06-19] MEDS: sitaGLIPtin 25 MG TABLET PO SCH (08:05)
[2018-06-19] MEDS: AMIODARONE 200 MG TABLET PO SCH ×2 (08:05→21:49)
[2018-06-19] MEDS: DILTIAZEM CD 240 MG CAPSULE PO SCH (08:05)
[2018-06-19] MEDS: FUROSEMIDE 40 MG/4 ML VIAL IV SCH (08:06)
[2018-06-19] MEDS: PREGABALIN 100 MG CAPSULE PO SCH ×2 (08:06→21:48)
[2018-06-19] MEDS: PANTOPRAZOLE 40 MG TABLET PO SCH (08:06)
[2018-06-19] MEDS: FLUTICASONE 50 MCG NASAL SPRAY 16 GM BOTTLE BOTH NARES SCH ×2 (08:06→21:49)
[2018-06-19] MEDS: BUDESONIDE/FORMOTEROL 160-4.5 INHALER 6 GM INH SCH ×2 (08:06→21:50)
[2018-06-19] MEDS: cycloSPORINE OPH EMUL 1 VIAL BOTH EYES SCH ×2 (08:06→21:50)
[2018-06-19] MEDS: LEVOFLOXACIN INJ 500 MG in PREMIX 1 EACH IV SCH (08:10)
[2018-06-19] MEDS: INSULIN REGULAR 100 UNIT/ML SUBCUT SCH ×4 (08:17→21:49)
[2018-06-19] MEDS: tiZANidine 4 MG TABLET PO PRN (09:06)
[2018-06-19] MEDS: FILGRASTIM-SNDZ 300 MCG/0.5 ML SYRINGE SUBCUT SCH (09:06)
[2018-06-19] MEDS: METOPROLOL TARTRATE 25 MG TABLET PO SCH ×2 (09:06→21:49)
[2018-06-19] MEDS ORDERED: SODIUM CHLORIDE 0.9% 500 ML IV ONE ×2 (12:18→19:18)
[2018-06-19] MEDS: FUROSEMIDE 40 MG TABLET PO SCH (16:12)
[2018-06-19] MEDS: AMITRIPTYLINE 100 MG TABLET PO SCH (21:48)
[2018-06-20] MEDS: traMADol 50 MG TABLET PO PRN ×3 (00:42→18:20)
[2018-06-20 04:38] LABS: Hematocrit 24.1 VOL% (42.0-52.0); Immature Granulocytes % 14.4 %; Immature Granulocytes Absolute 0.19 #; Lymphocytes # 0.2 10*3/uL (1.4-4.0); Lymphocytes % 11.4 % (21.2-54.2); Mean Corpuscular HGB Conc 33.2 GM/DL (32-36); Mean Corpuscular Hemoglobin 29 PG (27-34); Mean Corpuscular Volume 87.6 FL (87-102); Mean Platelet Volume 10.3 FL (9.6-12.0); Monocytes # 0.3 10*3/uL (0.11-0.8); Monocytes % 21.2 % (1.7-12.7); Neutrophils # 0.7 10*3/uL (1.4-7.4); Red Blood Count 2.75 MC/CUMM (3.8-5.5); Red Cell Distribution Width 14.3 % (9.3-17.3); White Blood Count 1.3 T/CUMM (4-12)
[2018-06-20 04:46] LABS: Platelet Count 13 T/CUMM (130-400)
[2018-06-20 04:50] LABS: Calcium 9.1 MG/DL (8.5-10.1); Osmolality,Calculated 279.7 MOS/KG (273-304); Potassium 2.9 MMOL/L (3.5-5.1)
[2018-06-20 05:04] LABS: Calcium 8.6 MG/DL (8.5-10.1); Osmolality,Calculated 281.5 MOS/KG (273-304); Potassium 2.9 MMOL/L (3.5-5.1)
[2018-06-20 05:45] LABS: Band Neutrophils 17 % (0-10); Eosinophils 1 % (0-10); Lymphocytes 12 % (20-55); Metamyelocytes 5 %; Myelocytes 3 %; Segmented Neutrophils 42 % (50-85); Total Cells Counted 100
[2018-06-20 05:46] LABS: Anisocytosis Slight; Microcytosis Slight; Platelet Estimate Decreased
[2018-06-20] MEDS: ALBUTEROL 0.63 MG/3 ML NEB RESP TX SCH ×2 (07:15→19:58)
[2018-06-20] MEDS ORDERED: POTASSIUM CHLORIDE 20 MEQ TABLET PO ONE (08:12)
[2018-06-20] MEDS ORDERED: SODIUM CHLORIDE 0.9% 1,000 ML IV PRN (08:26)
[2018-06-20] MEDS: AMIODARONE 200 MG TABLET PO SCH ×2 (10:06→21:22)
[2018-06-20] MEDS: DILTIAZEM CD 240 MG CAPSULE PO SCH (10:07)
[2018-06-20] MEDS: METOPROLOL TARTRATE 25 MG TABLET PO SCH ×2 (10:07→21:22)
[2018-06-20] MEDS: PREGABALIN 100 MG CAPSULE PO SCH ×2 (10:09→21:22)
[2018-06-20] MEDS: sitaGLIPtin 25 MG TABLET PO SCH (10:09)
[2018-06-20] MEDS: FUROSEMIDE 40 MG TABLET PO SCH ×2 (10:10→17:47)
[2018-06-20] MEDS: BUDESONIDE/FORMOTEROL 160-4.5 INHALER 6 GM INH SCH ×2 (10:11→21:21)
[2018-06-20] MEDS: PANTOPRAZOLE 40 MG TABLET PO SCH (10:11)
[2018-06-20] MEDS: cycloSPORINE OPH EMUL 1 VIAL BOTH EYES SCH ×2 (10:12→21:43)
[2018-06-20] MEDS: INSULIN REGULAR 100 UNIT/ML SUBCUT SCH ×4 (10:12→21:23)
[2018-06-20] MEDS: FLUTICASONE 50 MCG NASAL SPRAY 16 GM BOTTLE BOTH NARES SCH ×2 (10:12→21:22)
[2018-06-20] MEDS: LEVOFLOXACIN INJ 500 MG in PREMIX 1 EACH IV SCH (11:11)
[2018-06-20] MEDS: FILGRASTIM-SNDZ 300 MCG/0.5 ML SYRINGE SUBCUT SCH (11:14)
[2018-06-20] MEDS: AMITRIPTYLINE 100 MG TABLET PO SCH (21:22)
[2018-06-21] MEDS: ALBUTEROL 0.63 MG/3 ML NEB RESP TX SCH (07:10)
[2018-06-21 07:16] LABS: Basophils % 0.5 % (0.0-0.8); Hematocrit 30.1 VOL% (42.0-52.0); Hemoglobin 10.1 GM/DL (14.0-18.0); Immature Granulocytes % 11.1 %; Immature Granulocytes Absolute 0.42 #; Lymphocytes # 0.2 10*3/uL (1.4-4.0); Lymphocytes % 6.1 % (21.2-54.2); Mean Corpuscular HGB Conc 33.6 GM/DL (32-36); Mean Corpuscular Hemoglobin 29 PG (27-34); Mean Corpuscular Volume 87.8 FL (87-102); Mean Platelet Volume 10.3 FL (9.6-12.0); Monocytes # 0.7 10*3/uL (0.11-0.8); Monocytes % 18.4 % (1.7-12.7); Neutrophils # 2.4 10*3/uL (1.4-7.4); Neutrophils % 63.9 % (38.7-73.9); Red Blood Count 3.43 MC/CUMM (3.8-5.5); Red Cell Distribution Width 14.3 % (9.3-17.3); White Blood Count 3.8 T/CUMM (4-12)
[2018-06-21 07:17] LABS: Platelet Count 12 T/CUMM (130-400)
[2018-06-21 07:41] LABS: Albumin 2.2 G/DL (3.4-5.0); Bilirubin,Total 0.5 MG/DL (0.2-1.0); Calcium 9.1 MG/DL (8.5-10.1); Osmolality,Calculated 276.5 MOS/KG (273-304); Potassium 3.1 MMOL/L (3.5-5.1); Total Protein 6.1 G/DL (6.4-8.3)
[2018-06-21 07:50] LABS: Band Neutrophils 3 % (0-10); Hypochromasia 1+; Lymphocytes 7 % (20-55); Microcytosis Slight; Platelet Estimate Decreased; Segmented Neutrophils 69 % (50-85); Total Cells Counted 100
[2018-06-21] MEDS: sitaGLIPtin 25 MG TABLET PO SCH (08:37)
[2018-06-21] MEDS: METOPROLOL TARTRATE 25 MG TABLET PO SCH (08:38)
[2018-06-21] MEDS: PANTOPRAZOLE 40 MG TABLET PO SCH (08:38)
[2018-06-21] MEDS: AMIODARONE 200 MG TABLET PO SCH (08:39)
[2018-06-21] MEDS: traMADol 50 MG TABLET PO PRN (08:39)
[2018-06-21] MEDS: PREGABALIN 100 MG CAPSULE PO SCH (08:39)
[2018-06-21] MEDS: DILTIAZEM CD 240 MG CAPSULE PO SCH (08:40)
[2018-06-21] MEDS: FUROSEMIDE 40 MG TABLET PO SCH (08:40)
[2018-06-21] MEDS: FLUTICASONE 50 MCG NASAL SPRAY 16 GM BOTTLE BOTH NARES SCH (08:41)
[2018-06-21] MEDS: cycloSPORINE OPH EMUL 1 VIAL BOTH EYES SCH (08:41)
[2018-06-21] MEDS: INSULIN REGULAR 100 UNIT/ML SUBCUT SCH (08:41)
[2018-06-21] MEDS: FILGRASTIM-SNDZ 300 MCG/0.5 ML SYRINGE SUBCUT SCH (08:41)
[2018-06-21] MEDS: BUDESONIDE/FORMOTEROL 160-4.5 INHALER 6 GM INH SCH (08:41)
[2018-06-21 11:57] VITALS: BP 120/63
[2018-06-23] MEDS ORDERED: AMIODARONE 200 MG TABLET PO SCH (09:00)
== END 2018-06-21 12:12 | disposition home or self-care (01) | DRG 308 ==
LOC: N.ED 09:38 → N.EDINP 09:38 → N.TELEN 13:56
PROVIDERS: ADMIT Internal Medicine Geriatric Medicine; ATTEND Internal Medicine Geriatric Medicine

== ENCOUNTER 2018-07-11 21:51 | Observation (INO) ==
[2018-07-11] MEDS ORDERED: SODIUM CHLORIDE 0.9% 1,000 ML IV STA (23:08)
[2018-07-11 23:25] LABS: Basophils % 0.5 % (0.0-0.8); Eosinophils % 0.3 % (0.00-10.9); Hematocrit 35.4 VOL% (42.0-52.0); Hemoglobin 10.8 GM/DL (14.0-18.0); Immature Granulocytes % 2.4 %; Immature Granulocytes Absolute 0.16 #; Lymphocytes # 0.7 10*3/uL (1.4-4.0); Lymphocytes % 11.3 % (21.2-54.2); Mean Corpuscular HGB Conc 30.5 GM/DL (32-36); Mean Corpuscular Hemoglobin 30 PG (27-34); Mean Corpuscular Volume 98.6 FL (87-102); Mean Platelet Volume 13.1 FL (9.6-12.0); Monocytes # 1.1 10*3/uL (0.11-0.8); Monocytes % 17.1 % (1.7-12.7); NRBC # 0.13 10*3/uL; Neutrophils # 4.5 10*3/uL (1.4-7.4); Neutrophils % 68.4 % (38.7-73.9); Platelet Count 66 T/CUMM (130-400); Red Blood Count 3.59 MC/CUMM (3.8-5.5); Red Cell Distribution Width 22.1 % (9.3-17.3); White Blood Count 6.6 T/CUMM (4-12)
[2018-07-11 23:31] LABS: INR 1.3; Partial Thromboplastin Time 23.9 SECS (0-40)
[2018-07-11 23:33] LABS: Albumin 2.9 G/DL (3.4-5.0); Bilirubin,Total 1.3 MG/DL (0.2-1.0); Calcium 9.5 MG/DL (8.5-10.1); Osmolality,Calculated 293.6 MOS/KG (273-304); Potassium 3.6 MMOL/L (3.5-5.1); Total Protein 6.3 G/DL (6.4-8.3)
[2018-07-12 00:13] LABS: Apearance,Urine Slightly Hazy (Clear); Bilirubin,Urine Negative (Negative); Blood, Urine Negative (Negative); Glucose,Urine (UA) Negative (Negative); Hyaline Casts,Urine 5 /LPF (0-3); Ketones,Urine Negative (Negative); Mucus,Urine Moderate /LPF (Occasional); Nitrite,Urine Negative (Negative); Protein,Urine Negative; RBC,Urine 1 /HPF (0-4); Squamous Epithelial Cell,Urine Occasional /HPF (0-10); Urine Color Yellow (Yellow); Urine Specific Gravity 1.019 (1.001-1.035); WBC,Urine 3 /HPF (0-6)
[2018-07-12 00:20] LABS: Band Neutrophils 1 % (0-10); Eosinophils 1 % (0-10); Lymphocytes 9 % (20-55); Nucleated Red Blood Cells 4 (0-5); Segmented Neutrophils 78 % (50-85); Total Cells Counted 100
[2018-07-12 00:21] LABS: Anisocytosis 1+; Polychromasia Slight; Tear Drop Cells Few
[2018-07-12 00:22] LABS: Platelet Estimate Decreased
[2018-07-12] MEDS ORDERED: FUROSEMIDE 40 MG/4 ML VIAL IV STA (00:46)
[2018-07-12] MEDS ORDERED: DEXTROSE 50% 25 GM/50 ML SYRINGE IV PRN (01:19)
[2018-07-12] MEDS ORDERED: DOCUSATE SODIUM 100 MG CAPSULE PO PRN (01:19)
[2018-07-12] MEDS ORDERED: ACETAMINOPHEN 325 MG TABLET PO PRN (01:19)
[2018-07-12] MEDS ORDERED: GLUCAGON 1 MG VIAL IM PRN (01:19)
[2018-07-12] MEDS ORDERED: ONDANSETRON 4 MG/2 ML VIAL IV PRN (01:19)
[2018-07-12 01:30] LABS: Barbiturates Screen,Urine Negative (Negative); Benzodiazepines Screen,Urine Negative (Negative); Cannabinoid Screen,Urine Negative (Negative); Opiate Screen,Urine Positive (Negative); Phencyclidine Screen,Urine Negative (Negative)
[2018-07-12] MEDS ORDERED: NITROGLYCERIN SL 0.4 MG TABLET SL PRN (01:32)
[2018-07-12] MEDS ORDERED: POLYETHYLENE GLYCOL POWDER 17 GM PACK PO PRN (01:32)
[2018-07-12] MEDS ORDERED: ALBUTEROL/IPRATROPIUM 3 ML NEB RESP TX PRN (01:35)
[2018-07-12] MEDS: INSULIN LISPRO 100 UNIT/ML SUBCUT SCH ×5 (02:16→20:28)
[2018-07-12] MEDS: oxyCODONE/ACETAMINOPHEN 5-325 MG TABLET PO PRN ×4 (02:18→20:24)
[2018-07-12 04:44] LABS: Basophils % 0.6 % (0.0-0.8); Eosinophils % 0.4 % (0.00-10.9); Hematocrit 30.7 VOL% (42.0-52.0); Hemoglobin 9.2 GM/DL (14.0-18.0); Immature Granulocytes % 3.1 %; Immature Granulocytes Absolute 0.21 #; Lymphocytes # 0.8 10*3/uL (1.4-4.0); Lymphocytes % 12.4 % (21.2-54.2); Mean Corpuscular Hemoglobin 30 PG (27-34); Mean Corpuscular Volume 98.4 FL (87-102); Mean Platelet Volume 13.9 FL (9.6-12.0); Monocytes # 1.2 10*3/uL (0.11-0.8); Monocytes % 18.3 % (1.7-12.7); NRBC # 0.11 10*3/uL; Neutrophils # 4.4 10*3/uL (1.4-7.4); Neutrophils % 65.2 % (38.7-73.9); Platelet Count 74 T/CUMM (130-400); Red Blood Count 3.12 MC/CUMM (3.8-5.5); Red Cell Distribution Width 21.7 % (9.3-17.3); White Blood Count 6.8 T/CUMM (4-12)
[2018-07-12 05:06] LABS: Albumin 2.9 G/DL (3.4-5.0); Bilirubin,Total 1.1 MG/DL (0.2-1.0); Calcium 9.2 MG/DL (8.5-10.1); Osmolality,Calculated 291.6 MOS/KG (273-304); Potassium 3.3 MMOL/L (3.5-5.1); Total Protein 6.1 G/DL (6.4-8.3)
[2018-07-12 05:59] LABS: Band Neutrophils 4 % (0-10); Eosinophils 1 % (0-10); Lymphocytes 14 % (20-55); Myelocytes 1 %; Segmented Neutrophils 70 % (50-85); Total Cells Counted 100
[2018-07-12 06:00] LABS: Anisocytosis 1+; Ovalocytes 1+; Platelet Estimate Decreased; Polychromasia 1+
[2018-07-12] MEDS: POTASSIUM CHLORIDE 20 MEQ TABLET PO PRN ×4 (06:20→23:16)
[2018-07-12] MEDS: ALBUTEROL/IPRATROPIUM 3 ML NEB RESP TX SCH ×3 (07:10→20:37)
[2018-07-12] MEDS: FUROSEMIDE 40 MG/4 ML VIAL IV SCH ×2 (08:12→15:50)
[2018-07-12] MEDS: DILTIAZEM CD 240 MG CAPSULE PO SCH (08:13)
[2018-07-12] MEDS: ASPIRIN EC 81 MG TABLET PO SCH (08:13)
[2018-07-12] MEDS: METOPROLOL SUCCINATE XL 25 MG TABLET PO SCH (08:13)
[2018-07-12] MEDS: LISINOPRIL 5 MG TABLET PO SCH (08:13)
[2018-07-12] MEDS: sitaGLIPtin 25 MG TABLET PO SCH (08:13)
[2018-07-12] MEDS: PREGABALIN 100 MG CAPSULE PO SCH ×2 (08:14→20:23)
[2018-07-12] MEDS: tiZANidine 4 MG TABLET PO PRN ×2 (08:14→20:23)
[2018-07-12] MEDS: PANTOPRAZOLE 40 MG TABLET PO SCH (08:14)
[2018-07-12] MEDS: ATORVASTATIN 40 MG TABLET PO SCH (08:14)
[2018-07-12] MEDS: TICAGRELOR 90 MG TABLET PO SCH ×2 (08:14→20:24)
[2018-07-12] MEDS: cycloSPORINE OPH EMUL 1 VIAL BOTH EYES SCH ×2 (08:17→20:27)
[2018-07-12] MEDS: BUDESONIDE/FORMOTEROL 160-4.5 INHALER 6 GM INH SCH ×2 (08:17→20:25)
[2018-07-12] MEDS: FLUTICASONE 50 MCG NASAL SPRAY 16 GM BOTTLE BOTH NARES SCH ×2 (08:18→20:26)
[2018-07-12] MEDS ORDERED: MAGNESIUM SULF RIDER 4 GM in PREMIX 1 EACH IV PRN (08:53)
[2018-07-12] MEDS ORDERED: MAGNESIUM SULF RIDER 2 GM in PREMIX 1 EACH IV PRN (08:53)
[2018-07-12] MEDS ORDERED: ALPRAZolam 0.25 MG TABLET PO PRN (15:44)
[2018-07-12] MEDS ORDERED: AMITRIPTYLINE 100 MG TABLET PO SCH (21:00)
[2018-07-13] MEDS: ALBUTEROL/IPRATROPIUM 3 ML NEB RESP TX SCH ×2 (00:58→07:25)
[2018-07-13] MEDS: POTASSIUM CHLORIDE 20 MEQ TABLET PO PRN ×3 (02:04→05:34)
[2018-07-13 04:40] LABS: Basophils % 0.7 % (0.0-0.8); Eosinophils % 0.4 % (0.00-10.9); Hematocrit 30.1 VOL% (42.0-52.0); Hemoglobin 9.1 GM/DL (14.0-18.0); Immature Granulocytes % 2.6 %; Immature Granulocytes Absolute 0.15 #; Lymphocytes # 0.6 10*3/uL (1.4-4.0); Lymphocytes % 10.3 % (21.2-54.2); Mean Corpuscular HGB Conc 30.2 GM/DL (32-36); Mean Corpuscular Hemoglobin 30 PG (27-34); Mean Corpuscular Volume 98.4 FL (87-102); Mean Platelet Volume 13.9 FL (9.6-12.0); Monocytes # 0.7 10*3/uL (0.11-0.8); Monocytes % 11.4 % (1.7-12.7); NRBC # 0.03 10*3/uL; Neutrophils # 4.3 10*3/uL (1.4-7.4); Neutrophils % 74.6 % (38.7-73.9); Red Blood Count 3.06 MC/CUMM (3.8-5.5); Red Cell Distribution Width 21.5 % (9.3-17.3); White Blood Count 5.7 T/CUMM (4-12)
[2018-07-13 04:55] LABS: Platelet Count 63 T/CUMM (130-400)
[2018-07-13 05:06] LABS: Albumin 2.7 G/DL (3.4-5.0); Bilirubin,Total 0.9 MG/DL (0.2-1.0); Calcium 9.1 MG/DL (8.5-10.1); Osmolality,Calculated 284.1 MOS/KG (273-304); Potassium 3.4 MMOL/L (3.5-5.1); Total Protein 5.7 G/DL (6.4-8.3)
[2018-07-13] MEDS: oxyCODONE/ACETAMINOPHEN 5-325 MG TABLET PO PRN (06:19)
[2018-07-13 06:41] LABS: Lymphocytes 9 % (20-55); Myelocytes 1 %; Segmented Neutrophils 74 % (50-85); Total Cells Counted 100
[2018-07-13 06:42] LABS: Platelet Estimate Decreased; Polychromasia 1+
[2018-07-13 06:43] LABS: Ovalocytes 1+; Tear Drop Cells Few
[2018-07-13] MEDS: INSULIN LISPRO 100 UNIT/ML SUBCUT SCH ×2 (07:47→12:05)
[2018-07-13] MEDS: ASPIRIN EC 81 MG TABLET PO SCH (08:57)
[2018-07-13] MEDS: DILTIAZEM CD 240 MG CAPSULE PO SCH (08:57)
[2018-07-13] MEDS: ATORVASTATIN 40 MG TABLET PO SCH (08:57)
[2018-07-13] MEDS: PANTOPRAZOLE 40 MG TABLET PO SCH (08:58)
[2018-07-13] MEDS: PREGABALIN 100 MG CAPSULE PO SCH (08:58)
[2018-07-13] MEDS: sitaGLIPtin 25 MG TABLET PO SCH (08:58)
[2018-07-13] MEDS: TICAGRELOR 90 MG TABLET PO SCH (08:58)
[2018-07-13] MEDS: cycloSPORINE OPH EMUL 1 VIAL BOTH EYES SCH (08:59)
[2018-07-13] MEDS: BUDESONIDE/FORMOTEROL 160-4.5 INHALER 6 GM INH SCH (08:59)
[2018-07-13] MEDS: FLUTICASONE 50 MCG NASAL SPRAY 16 GM BOTTLE BOTH NARES SCH (08:59)
[2018-07-13] MEDS ORDERED: POLYETHYLENE GLYCOL POWDER 17 GM PACK PO SCH (09:00)
[2018-07-13] MEDS ORDERED: MAGNESIUM OXIDE 400 MG TABLET PO SCH (09:00)
[2018-07-13] MEDS: METOPROLOL SUCCINATE XL 25 MG TABLET PO SCH (10:36)
[2018-07-13 11:09] VITALS: BP 93/64
[2018-07-13] MEDS: LISINOPRIL 5 MG TABLET PO SCH (11:09)
== END 2018-07-13 12:09 | disposition home or self-care (01) ==
LOC: EDUNIT# → EDBD → N.ED 21:51 → N.EDINP 07-12 01:18 → INTOOBSV 07-12 01:18 → OBSVTOIN 07-12 01:18 → N.4E 07-12 01:48
PROVIDERS: ADMIT Internal Medicine; ATTEND Internal Medicine

== ENCOUNTER 2018-07-17 03:50 | Inpatient (IN) ==
[2018-07-17] MEDS ORDERED: ASPIRIN 325 MG TABLET PO STA (04:11)
[2018-07-17 04:17] LABS: Basophils % 0.1 % (0.0-0.8); Hemoglobin 11.5 GM/DL (14.0-18.0); Immature Granulocytes % 2.5 %; Immature Granulocytes Absolute 0.39 #; Lymphocytes # 0.4 10*3/uL (1.4-4.0); Lymphocytes % 2.5 % (21.2-54.2); Mean Corpuscular HGB Conc 29.8 GM/DL (32-36); Mean Corpuscular Hemoglobin 30 PG (27-34); Mean Corpuscular Volume 101.6 FL (87-102); Monocytes # 1.8 10*3/uL (0.11-0.8); Monocytes % 11.3 % (1.7-12.7); NRBC # 0.63 10*3/uL; Neutrophils # 12.9 10*3/uL (1.4-7.4); Neutrophils % 83.6 % (38.7-73.9); Red Cell Distribution Width 23.5 % (9.3-17.3); White Blood Count 15.5 T/CUMM (4-12)
[2018-07-17 04:21] LABS: Hematocrit 38.5 VOL% (42.0-52.0)
[2018-07-17 04:22] LABS: Platelet Count 77 T/CUMM (130-400)
[2018-07-17 04:30] LABS: INR 2.3
[2018-07-17 04:31] LABS: PT Patient Result 24.9 SECS
[2018-07-17 04:43] LABS: Band Neutrophils 1 % (0-10); Lymphocytes 3 % (20-55); Nucleated Red Blood Cells 2 (0-5); Platelet Estimate Decreased; Segmented Neutrophils 87 % (50-85); Total Cells Counted 100
[2018-07-17 04:44] LABS: Hypochromasia 1+; Ovalocytes Slight
[2018-07-17 04:54] LABS: Albumin 3.7 G/DL (3.4-5.0); Bilirubin,Total 4.1 MG/DL (0.2-1.0); Calcium 9.8 MG/DL (8.5-10.1); Osmolality,Calculated 281.5 MOS/KG (273-304); Potassium 4.4 MMOL/L (3.5-5.1); Total Protein 6.9 G/DL (6.4-8.3)
[2018-07-17 05:07] LABS: Apearance,Urine Slightly Hazy (Clear); Bilirubin,Urine Negative (Negative); Blood, Urine Moderate mg/dL (Negative); Glucose,Urine (UA) Negative (Negative); Hyaline Casts,Urine 13 /LPF (0-3); Ketones,Urine 5 mg/dL (Negative); Mucus,Urine Occasional /LPF (Occasional); Nitrite,Urine Negative (Negative); Protein,Urine 100 MG/DL; RBC,Urine 1 /HPF (0-4); Squamous Epithelial Cell,Urine Occasional /HPF (0-10); Urine Color Amber (Yellow); Urine Specific Gravity 1.021 (1.001-1.035); WBC,Urine 3 /HPF (0-6)
[2018-07-17 05:15] LABS: Barbiturates Screen,Urine Negative (Negative); Benzodiazepines Screen,Urine Negative (Negative); Cannabinoid Screen,Urine Negative (Negative); Opiate Screen,Urine Positive (Negative); Phencyclidine Screen,Urine Negative (Negative)
[2018-07-17] MEDS ORDERED: SODIUM CHLORIDE 0.9% 1,000 ML IV STA (05:48)
[2018-07-17] MEDS ORDERED: cefTRIAXone 1,000 MG in SODIUM CHLORIDE 0.9% 100 ML IV STA (06:09)
[2018-07-17] MEDS ORDERED: MORPHINE 4 MG/1 ML VIAL IV STA (06:24)
[2018-07-17 08:13] LABS: Hepatitis A Ab IgM Quant 0.24 Index; Hepatitis A Ab IgM Result Negative (Negative); Hepatitis B Core IgM Quant 0.08 Index; Hepatitis B Core IgM Result Negative (Negative); Hepatitis B Surface Ag Quant < 0.10 Index; Hepatitis B Surface Ag Result Negative (Negative); Hepatitis C Virus Ab Quant 0.05 Index; Hepatitis C Virus Ab Result Negative (Negative)
[2018-07-17] MEDS ORDERED: POLYETHYLENE GLYCOL POWDER 17 GM PACK PO PRN (08:25)
[2018-07-17] MEDS ORDERED: tiZANidine 4 MG TABLET PO PRN (08:25)
[2018-07-17] MEDS ORDERED: NITROGLYCERIN SL 0.4 MG TABLET SL PRN (08:25)
[2018-07-17] MEDS: ALBUTEROL 0.63 MG/3 ML NEB RESP TX SCH ×2 (09:17→19:55)
[2018-07-17] MEDS: ASPIRIN EC 81 MG TABLET PO SCH (09:32)
[2018-07-17] MEDS: TICAGRELOR 90 MG TABLET PO SCH ×2 (09:33→21:13)
[2018-07-17] MEDS: FLUTICASONE 50 MCG NASAL SPRAY 16 GM BOTTLE BOTH NARES SCH ×2 (09:33→21:14)
[2018-07-17] MEDS: sitaGLIPtin 25 MG TABLET PO SCH (09:33)
[2018-07-17] MEDS: PANTOPRAZOLE 40 MG TABLET PO SCH (09:34)
[2018-07-17] MEDS: LISINOPRIL 5 MG TABLET PO SCH (09:34)
[2018-07-17] MEDS: BUDESONIDE/FORMOTEROL 160-4.5 INHALER 6 GM INH SCH ×2 (09:35→21:14)
[2018-07-17] MEDS: cycloSPORINE OPH EMUL 1 VIAL BOTH EYES SCH ×2 (09:35→21:14)
[2018-07-17] MEDS: METOPROLOL SUCCINATE XL 25 MG TABLET PO SCH (09:35)
[2018-07-17] MEDS: PREGABALIN 100 MG CAPSULE PO SCH ×2 (09:56→21:13)
[2018-07-17] MEDS: oxyCODONE/ACETAMINOPHEN 5-325 MG TABLET PO PRN ×2 (13:08→19:34)
[2018-07-17] MEDS ORDERED: LORazepam 1 MG TABLET PO PRN (16:04)
[2018-07-17] MEDS: FUROSEMIDE 40 MG/4 ML VIAL IV SCH (17:52)
[2018-07-17] MEDS: ATORVASTATIN 40 MG TABLET PO SCH (21:13)
[2018-07-17] MEDS: AMITRIPTYLINE 100 MG TABLET PO SCH (21:13)
[2018-07-18] MEDS: oxyCODONE/ACETAMINOPHEN 5-325 MG TABLET PO PRN ×2 (03:42→09:49)
[2018-07-18 04:16] LABS: Basophils # 0.1 10*3/uL (0.0-0.2); Basophils % 0.5 % (0.0-0.8); Eosinophils % 0.1 % (0.00-10.9); Hematocrit 36.8 VOL% (42.0-52.0); Hemoglobin 11.5 GM/DL (14.0-18.0); Immature Granulocytes % 3.3 %; Immature Granulocytes Absolute 0.38 #; Lymphocytes # 0.3 10*3/uL (1.4-4.0); Lymphocytes % 2.4 % (21.2-54.2); Mean Corpuscular HGB Conc 31.3 GM/DL (32-36); Mean Corpuscular Hemoglobin 30 PG (27-34); Mean Corpuscular Volume 96.8 FL (87-102); Mean Platelet Volume 13.5 FL (9.6-12.0); Monocytes # 0.9 10*3/uL (0.11-0.8); Monocytes % 7.4 % (1.7-12.7); NRBC # 0.45 10*3/uL; Neutrophils % 86.3 % (38.7-73.9); Red Cell Distribution Width 23.4 % (9.3-17.3); White Blood Count 11.6 T/CUMM (4-12)
[2018-07-18 04:17] LABS: Platelet Count 52 T/CUMM (130-400)
[2018-07-18 05:09] LABS: Albumin 3.2 G/DL (3.4-5.0); Bilirubin,Total 7.7 MG/DL (0.2-1.0); Calcium 9.1 MG/DL (8.5-10.1); Potassium 2.9 MMOL/L (3.5-5.1); Total Protein 5.8 G/DL (6.4-8.3)
[2018-07-18 05:11] LABS: Troponin I 0.115 NG/ML (0.00-0.045)
[2018-07-18] MEDS ORDERED: POTASSIUM CHLORIDE 20 MEQ TABLET PO PRN (05:41)
[2018-07-18 05:46] LABS: Lymphocytes 3 % (20-55); Nucleated Red Blood Cells 2 (0-5); Platelet Estimate Decreased; Segmented Neutrophils 93 % (50-85); Total Cells Counted 100
[2018-07-18] MEDS ORDERED: MAGNESIUM SULF RIDER 2 GM in PREMIX 1 EACH IV ONE (08:09)
[2018-07-18] MEDS: ALBUTEROL 0.63 MG/3 ML NEB RESP TX SCH ×2 (08:24→19:29)
[2018-07-18] MEDS: FUROSEMIDE 40 MG/4 ML VIAL IV SCH ×2 (09:46→15:48)
[2018-07-18] MEDS: TICAGRELOR 90 MG TABLET PO SCH ×2 (09:47→21:11)
[2018-07-18] MEDS: ASPIRIN EC 81 MG TABLET PO SCH (09:47)
[2018-07-18] MEDS: POTASSIUM CHLORIDE 20 MEQ TABLET PO SCH ×4 (09:47→21:11)
[2018-07-18] MEDS: sitaGLIPtin 25 MG TABLET PO SCH (09:48)
[2018-07-18] MEDS: PANTOPRAZOLE 40 MG TABLET PO SCH (09:48)
[2018-07-18] MEDS: PREGABALIN 100 MG CAPSULE PO SCH ×2 (09:48→22:50)
[2018-07-18] MEDS: LISINOPRIL 5 MG TABLET PO SCH (09:48)
[2018-07-18] MEDS: cycloSPORINE OPH EMUL 1 VIAL BOTH EYES SCH ×2 (09:49→22:51)
[2018-07-18] MEDS: BUDESONIDE/FORMOTEROL 160-4.5 INHALER 6 GM INH SCH ×2 (09:49→22:52)
[2018-07-18] MEDS: FLUTICASONE 50 MCG NASAL SPRAY 16 GM BOTTLE BOTH NARES SCH ×2 (09:49→22:52)
[2018-07-18] MEDS: METOPROLOL SUCCINATE XL 25 MG TABLET PO SCH (09:52)
[2018-07-18] MEDS ORDERED: METOPROLOL TARTRATE 25 MG TABLET PO ONE (15:15)
[2018-07-18] MEDS: AMITRIPTYLINE 100 MG TABLET PO SCH (21:11)
[2018-07-18] MEDS: ATORVASTATIN 40 MG TABLET PO SCH (22:50)
[2018-07-19 05:02] LABS: Basophils % 0.3 % (0.0-0.8); Eosinophils # 0.1 10*3/uL (0.0-0.87); Eosinophils % 0.5 % (0.00-10.9); Hematocrit 39.3 VOL% (42.0-52.0); Hemoglobin 11.8 GM/DL (14.0-18.0); Immature Granulocytes % 2.7 %; Immature Granulocytes Absolute 0.29 #; Lymphocytes # 0.5 10*3/uL (1.4-4.0); Lymphocytes % 4.5 % (21.2-54.2); Mean Corpuscular Hemoglobin 30 PG (27-34); Mean Corpuscular Volume 98.5 FL (87-102); Mean Platelet Volume 12.5 FL (9.6-12.0); Monocytes # 0.8 10*3/uL (0.11-0.8); Monocytes % 7.5 % (1.7-12.7); NRBC # 0.23 10*3/uL; Neutrophils # 9.1 10*3/uL (1.4-7.4); Neutrophils % 84.5 % (38.7-73.9); Red Blood Count 3.99 MC/CUMM (3.8-5.5); Red Cell Distribution Width 23.2 % (9.3-17.3); White Blood Count 10.7 T/CUMM (4-12)
[2018-07-19 05:03] LABS: Platelet Count 50 T/CUMM (130-400)
[2018-07-19 05:07] LABS: INR 1.6; PT Patient Result 17.4 SECS
[2018-07-19 05:21] LABS: Eosinophils 1 % (0-10); Hypochromasia 1+; Lymphocytes 6 % (20-55); Nucleated Red Blood Cells 1 (0-5); Ovalocytes Slight; Platelet Estimate Decreased; Segmented Neutrophils 90 % (50-85); Total Cells Counted 100
[2018-07-19 05:27] LABS: Albumin 2.6 G/DL (3.4-5.0); Bilirubin,Total 4.6 MG/DL (0.2-1.0); Calcium 8.9 MG/DL (8.5-10.1); Osmolality,Calculated 287.8 MOS/KG (273-304); Potassium 2.8 MMOL/L (3.5-5.1); Total Protein 5.3 G/DL (6.4-8.3)
[2018-07-19] MEDS: ALBUTEROL 0.63 MG/3 ML NEB RESP TX SCH ×2 (07:09→18:58)
[2018-07-19] MEDS ORDERED: MAGNESIUM SULF RIDER 4 GM in PREMIX 1 EACH IV ONE (08:00)
[2018-07-19] MEDS: POTASSIUM CHLORIDE 20 MEQ TABLET PO SCH ×4 (08:20→19:42)
[2018-07-19] MEDS: ASPIRIN EC 81 MG TABLET PO SCH (08:21)
[2018-07-19] MEDS: PREGABALIN 100 MG CAPSULE PO SCH ×2 (08:21→21:13)
[2018-07-19] MEDS: PANTOPRAZOLE 40 MG TABLET PO SCH (08:21)
[2018-07-19] MEDS: sitaGLIPtin 25 MG TABLET PO SCH (08:21)
[2018-07-19] MEDS: TICAGRELOR 90 MG TABLET PO SCH ×2 (08:22→21:13)
[2018-07-19] MEDS: FLUTICASONE 50 MCG NASAL SPRAY 16 GM BOTTLE BOTH NARES SCH ×2 (08:22→21:13)
[2018-07-19] MEDS: BUDESONIDE/FORMOTEROL 160-4.5 INHALER 6 GM INH SCH ×2 (08:22→21:13)
[2018-07-19] MEDS: FUROSEMIDE 40 MG TABLET PO SCH ×2 (08:22→16:37)
[2018-07-19] MEDS: cycloSPORINE OPH EMUL 1 VIAL BOTH EYES SCH ×2 (08:23→21:17)
[2018-07-19] MEDS ORDERED: METOPROLOL SUCCINATE XL 50 MG TABLET PO SCH (09:00)
[2018-07-19] MEDS ORDERED: METOPROLOL SUCCINATE XL 100 MG TABLET PO SCH (09:00)
[2018-07-19] MEDS ORDERED: METOPROLOL TARTRATE 5 MG/5 ML VIAL IV ONE (13:38)
[2018-07-19] MEDS: oxyCODONE/ACETAMINOPHEN 5-325 MG TABLET PO PRN (17:17)
[2018-07-19] MEDS ORDERED: METOPROLOL TARTRATE 50 MG TABLET PO ONE (21:00)
[2018-07-19] MEDS: AMITRIPTYLINE 100 MG TABLET PO SCH (21:17)
[2018-07-19] MEDS: ATORVASTATIN 40 MG TABLET PO SCH (21:17)
[2018-07-20 04:53] LABS: Basophils # 0.1 10*3/uL (0.0-0.2); Basophils % 0.5 % (0.0-0.8); Eosinophils # 0.1 10*3/uL (0.0-0.87); Eosinophils % 0.6 % (0.00-10.9); Hemoglobin 11.3 GM/DL (14.0-18.0); Immature Granulocytes % 3.4 %; Immature Granulocytes Absolute 0.35 #; Lymphocytes # 0.7 10*3/uL (1.4-4.0); Lymphocytes % 6.9 % (21.2-54.2); Mean Corpuscular HGB Conc 30.5 GM/DL (32-36); Mean Corpuscular Hemoglobin 30 PG (27-34); Mean Corpuscular Volume 98.7 FL (87-102); Monocytes % 9.7 % (1.7-12.7); NRBC # 0.11 10*3/uL; Neutrophils % 78.9 % (38.7-73.9); Red Blood Count 3.75 MC/CUMM (3.8-5.5); Red Cell Distribution Width 23.9 % (9.3-17.3); White Blood Count 10.2 T/CUMM (4-12)
[2018-07-20 04:54] LABS: Platelet Count 50 T/CUMM (130-400)
[2018-07-20 05:14] LABS: Albumin 2.8 G/DL (3.4-5.0); Bilirubin,Total 3.3 MG/DL (0.2-1.0); Calcium 8.6 MG/DL (8.5-10.1); Potassium 2.8 MMOL/L (3.5-5.1); Total Protein 5.5 G/DL (6.4-8.3)
[2018-07-20 05:24] LABS: Hypochromasia 1+; Ovalocytes Slight; Platelet Estimate Decreased
[2018-07-20] MEDS: ALBUTEROL 0.63 MG/3 ML NEB RESP TX SCH ×2 (07:18→19:39)
[2018-07-20] MEDS ORDERED: MAGNESIUM SULF RIDER 2 GM in PREMIX 1 EACH IV ONE (08:00)
[2018-07-20] MEDS: cycloSPORINE OPH EMUL 1 VIAL BOTH EYES SCH ×2 (08:29→21:58)
[2018-07-20] MEDS: sitaGLIPtin 25 MG TABLET PO SCH (08:30)
[2018-07-20] MEDS: PREGABALIN 100 MG CAPSULE PO SCH ×2 (08:30→20:57)
[2018-07-20] MEDS: POTASSIUM CHLORIDE 20 MEQ TABLET PO SCH ×4 (08:30→20:56)
[2018-07-20] MEDS: ASPIRIN EC 81 MG TABLET PO SCH (08:30)
[2018-07-20] MEDS: TICAGRELOR 90 MG TABLET PO SCH ×2 (08:30→20:56)
[2018-07-20] MEDS: PANTOPRAZOLE 40 MG TABLET PO SCH (08:31)
[2018-07-20] MEDS: FUROSEMIDE 40 MG TABLET PO SCH ×2 (08:31→16:03)
[2018-07-20] MEDS: BUDESONIDE/FORMOTEROL 160-4.5 INHALER 6 GM INH SCH ×2 (08:31→20:57)
[2018-07-20] MEDS: FLUTICASONE 50 MCG NASAL SPRAY 16 GM BOTTLE BOTH NARES SCH ×2 (08:31→20:56)
[2018-07-20] MEDS: MAGNESIUM OXIDE 400 MG TABLET PO SCH ×2 (08:35→20:57)
[2018-07-20] MEDS: METOPROLOL SUCCINATE XL 100 MG TABLET PO SCH (08:35)
[2018-07-20] MEDS: ATORVASTATIN 40 MG TABLET PO SCH (20:57)
[2018-07-20] MEDS: AMITRIPTYLINE 100 MG TABLET PO SCH (20:58)
[2018-07-20] MEDS: oxyCODONE/ACETAMINOPHEN 5-325 MG TABLET PO PRN (20:58)
[2018-07-21] MEDS: POTASSIUM CHLORIDE 20 MEQ TABLET PO SCH ×3 (00:36→20:50)
[2018-07-21 06:38] LABS: Calcium 9.4 MG/DL (8.5-10.1); Osmolality,Calculated 278.5 MOS/KG (273-304); Potassium 3.3 MMOL/L (3.5-5.1)
[2018-07-21] MEDS: ALBUTEROL 0.63 MG/3 ML NEB RESP TX SCH ×2 (07:41→19:20)
[2018-07-21] MEDS ORDERED: POTASSIUM CHLORIDE 20 MEQ TABLET PO SCH (09:00)
[2018-07-21] MEDS: cycloSPORINE OPH EMUL 1 VIAL BOTH EYES SCH ×2 (09:14→20:51)
[2018-07-21] MEDS: PREGABALIN 100 MG CAPSULE PO SCH ×2 (09:14→20:51)
[2018-07-21] MEDS: sitaGLIPtin 25 MG TABLET PO SCH (09:14)
[2018-07-21] MEDS: PANTOPRAZOLE 40 MG TABLET PO SCH (09:15)
[2018-07-21] MEDS: TICAGRELOR 90 MG TABLET PO SCH ×2 (09:15→20:50)
[2018-07-21] MEDS: FUROSEMIDE 40 MG TABLET PO SCH ×2 (09:15→17:30)
[2018-07-21] MEDS: ASPIRIN EC 81 MG TABLET PO SCH (09:15)
[2018-07-21] MEDS: MAGNESIUM OXIDE 400 MG TABLET PO SCH ×2 (09:15→20:51)
[2018-07-21] MEDS: METOPROLOL SUCCINATE XL 100 MG TABLET PO SCH (09:16)
[2018-07-21] MEDS: FLUTICASONE 50 MCG NASAL SPRAY 16 GM BOTTLE BOTH NARES SCH ×2 (09:17→20:50)
[2018-07-21] MEDS: BUDESONIDE/FORMOTEROL 160-4.5 INHALER 6 GM INH SCH ×2 (09:17→20:51)
[2018-07-21] MEDS ORDERED: MAGNESIUM SULF RIDER 2 GM in PREMIX 1 EACH IV ONE (10:35)
[2018-07-21] MEDS ORDERED: POTASSIUM CHLORIDE 20 MEQ TABLET PO ONE (10:38)
[2018-07-21] MEDS ORDERED: MAGNESIUM SULF RIDER 2 GM in PREMIX 1 EACH IV PRN (10:51)
[2018-07-21] MEDS ORDERED: MAGNESIUM SULF RIDER 4 GM in PREMIX 1 EACH IV PRN (10:51)
[2018-07-21] MEDS: ATORVASTATIN 40 MG TABLET PO SCH (20:50)
[2018-07-21] MEDS: AMITRIPTYLINE 100 MG TABLET PO SCH (20:50)
[2018-07-22 06:01] LABS: Calcium 9.9 MG/DL (8.5-10.1); Osmolality,Calculated 283.3 MOS/KG (273-304)
[2018-07-22 06:24] LABS: Albumin 2.9 G/DL (3.4-5.0); Bilirubin,Direct 0.5 MG/DL (0.0-0.20); Bilirubin,Indirect 1.5 MG/DL (0.0-1.0); Total Protein 5.7 G/DL (6.4-8.3)
[2018-07-22] MEDS: ALBUTEROL 0.63 MG/3 ML NEB RESP TX SCH (07:37)
[2018-07-22] MEDS: FLUTICASONE 50 MCG NASAL SPRAY 16 GM BOTTLE BOTH NARES SCH (09:25)
[2018-07-22] MEDS: BUDESONIDE/FORMOTEROL 160-4.5 INHALER 6 GM INH SCH (09:25)
[2018-07-22] MEDS: cycloSPORINE OPH EMUL 1 VIAL BOTH EYES SCH (09:26)
[2018-07-22] MEDS: PREGABALIN 100 MG CAPSULE PO SCH (09:28)
[2018-07-22] MEDS: TICAGRELOR 90 MG TABLET PO SCH (09:28)
[2018-07-22] MEDS: sitaGLIPtin 25 MG TABLET PO SCH (09:28)
[2018-07-22] MEDS: ASPIRIN EC 81 MG TABLET PO SCH (09:28)
[2018-07-22] MEDS: FUROSEMIDE 40 MG TABLET PO SCH (09:28)
[2018-07-22] MEDS: PANTOPRAZOLE 40 MG TABLET PO SCH (09:29)
[2018-07-22] MEDS: METOPROLOL SUCCINATE XL 100 MG TABLET PO SCH (09:29)
[2018-07-22] MEDS: POTASSIUM CHLORIDE 20 MEQ TABLET PO SCH (09:29)
[2018-07-22] MEDS: MAGNESIUM OXIDE 400 MG TABLET PO SCH (09:29)
[2018-07-22 12:43] VITALS: BP 99/69
== END 2018-07-22 17:30 | disposition home health service (06) | DRG 291 ==
LOC: EDUNIT# → EDBD → N.ED 03:50 → N.EDINP 07:51 → SUATTDRO 07:51 → N.CC 11:34 → N.TELEN 07-18 16:58
PROVIDERS: ADMIT Internal Medicine; ATTEND Hospitalist

== ENCOUNTER 2018-07-29 15:10 | Inpatient (IN) ==
[2018-07-29] MEDS ORDERED: PANTOPRAZOLE 40 MG VIAL IV STA (15:38)
[2018-07-29] MEDS ORDERED: ASPIRIN 325 MG TABLET PO STA (15:38)
[2018-07-29] MEDS ORDERED: ONDANSETRON 4 MG/2 ML VIAL IV STA (15:38)
[2018-07-29] MEDS ORDERED: SODIUM CHLORIDE 0.9% 500 ML IV STA (15:38)
[2018-07-29 15:47] LABS: Basophils # 0.1 10*3/uL (0.0-0.2); Basophils % 0.5 % (0.0-0.8); Eosinophils # 0.1 10*3/uL (0.0-0.87); Eosinophils % 0.4 % (0.00-10.9); Hemoglobin 12.4 GM/DL (14.0-18.0); Immature Granulocytes % 0.7 %; Lymphocytes # 1.1 10*3/uL (1.4-4.0); Lymphocytes % 7.1 % (21.2-54.2); Mean Corpuscular Hemoglobin 32 PG (27-34); Mean Corpuscular Volume 102.3 FL (87-102); Monocytes # 1.9 10*3/uL (0.11-0.8); Monocytes % 12.3 % (1.7-12.7); NRBC # 0.02 10*3/uL; Neutrophils # 12.1 10*3/uL (1.4-7.4); Platelet Count 68 T/CUMM (130-400); Red Blood Count 3.91 MC/CUMM (3.8-5.5); Red Cell Distribution Width 24.1 % (9.3-17.3); White Blood Count 15.3 T/CUMM (4-12)
[2018-07-29 15:52] LABS: INR 1.4; PT Patient Result 14.8 SECS; Partial Thromboplastin Time 24.9 SECS (0-40)
[2018-07-29] MEDS ORDERED: ALBUTEROL/IPRATROPIUM 3 ML NEB RESP TX STA (15:54)
[2018-07-29 16:09] LABS: Alanine Aminotransferase 299 U/L (16-61); Albumin 3.1 G/DL (3.4-5.0); Alkaline Phosphatase 275 U/L (45-117); Aspartate Amino Transferase 111 U/L (0-37); Blood Urea Nitrogen 26 MG/DL (7-18); Calcium 9.8 MG/DL (8.5-10.1); Glucose 98 MG/DL (74-106); Osmolality,Calculated 281.5 MOS/KG (273-304); Sodium 139 MMOL/L (136-145); Total Protein 6.5 G/DL (6.4-8.3); Troponin I 0.038 NG/ML (0.00-0.045)
[2018-07-29 17:15] LABS: Apearance,Urine CLEAR (Clear); Bacteria,Urine Occasional /HPF (Few); Bilirubin,Urine Negative (Negative); Blood, Urine Small mg/dL (Negative); Glucose,Urine (UA) Negative (Negative); Hyaline Casts,Urine 27 /LPF (0-3); Ketones,Urine 5 mg/dL (Negative); Mucus,Urine Occasional /LPF (Occasional); Nitrite,Urine Negative (Negative); Protein,Urine 100 MG/DL; RBC,Urine 6 /HPF (0-4); Urine Color Amber (Yellow); Urine Specific Gravity 1.021 (1.001-1.035); WBC,Urine 2 /HPF (0-6)
[2018-07-29 17:40] LABS: Barbiturates Screen,Urine Negative (Negative); Benzodiazepines Screen,Urine Negative (Negative); Cannabinoid Screen,Urine Negative (Negative); Opiate Screen,Urine Positive (Negative); Phencyclidine Screen,Urine Negative (Negative)
[2018-07-29] MEDS ORDERED: cefTRIAXone 1,000 MG in SODIUM CHLORIDE 0.9% 100 ML IV STA (18:56)
[2018-07-29] MEDS: POTASSIUM CHLORIDE RIDER 10 MEQ in PREMIX 1 EACH IV SCH (23:00)
[2018-07-29] MEDS: POTASSIUM CHLORIDE 20 MEQ TABLET PO SCH (23:10)
[2018-07-30] MEDS ORDERED: NITROGLYCERIN SL 0.4 MG TABLET SL PRN (00:20)
[2018-07-30] MEDS ORDERED: ACETAMINOPHEN 325 MG TABLET PO PRN (00:20)
[2018-07-30] MEDS ORDERED: ATORVASTATIN 40 MG TABLET PO SCH (00:20)
[2018-07-30] MEDS ORDERED: PROMETHAZINE 25 MG/1 ML VIAL IM PRN (00:20)
[2018-07-30] MEDS: POTASSIUM CHLORIDE RIDER 10 MEQ in PREMIX 1 EACH IV SCH (00:21)
[2018-07-30] MEDS: oxyCODONE/ACETAMINOPHEN 5-325 MG TABLET PO PRN (01:05)
[2018-07-30] MEDS: TICAGRELOR 90 MG TABLET PO SCH ×3 (01:05→20:11)
[2018-07-30] MEDS: FUROSEMIDE 40 MG/4 ML VIAL IV SCH ×3 (01:05→17:30)
[2018-07-30] MEDS: POTASSIUM CHLORIDE 20 MEQ TABLET PO SCH ×2 (03:02→07:04)
[2018-07-30 04:47] LABS: Basophils # 0.1 10*3/uL (0.0-0.2); Basophils % 0.5 % (0.0-0.8); Eosinophils % 0.2 % (0.00-10.9); Hematocrit 40.3 VOL% (42.0-52.0); Hemoglobin 12.4 GM/DL (14.0-18.0); Immature Granulocytes % 0.7 %; Lymphocytes # 0.7 10*3/uL (1.4-4.0); Lymphocytes % 4.9 % (21.2-54.2); Mean Corpuscular HGB Conc 30.8 GM/DL (32-36); Mean Corpuscular Hemoglobin 32 PG (27-34); Mean Corpuscular Volume 103.6 FL (87-102); Monocytes # 1.4 10*3/uL (0.11-0.8); Monocytes % 9.7 % (1.7-12.7); NRBC # 0.03 10*3/uL; Neutrophils # 12.1 10*3/uL (1.4-7.4); Platelet Count 62 T/CUMM (130-400); Red Blood Count 3.89 MC/CUMM (3.8-5.5); Red Cell Distribution Width 24.4 % (9.3-17.3); White Blood Count 14.4 T/CUMM (4-12)
[2018-07-30 05:06] LABS: Calcium 9.6 MG/DL (8.5-10.1); Osmolality,Calculated 285.4 MOS/KG (273-304); Potassium 3.6 MMOL/L (3.5-5.1); Troponin I 0.052 NG/ML (0.00-0.045)
[2018-07-30 05:17] LABS: Anisocytosis 1+; Lymphocytes 3 % (20-55); Macrocytosis 1+; Polychromasia Slight; Segmented Neutrophils 93 % (50-85); Total Cells Counted 100
[2018-07-30 05:18] LABS: Platelet Estimate Decreased
[2018-07-30] MEDS ORDERED: PIPERACILLIN/TAZOBACTAM 3,375 MG VIAL IV ONE (06:26)
[2018-07-30] MEDS ORDERED: SODIUM CHLORIDE 0.9% 100 ML IV ONE (06:26)
[2018-07-30] MEDS ORDERED: ALBUTEROL 0.63 MG/3 ML NEB RESP TX SCH (07:00)
[2018-07-30] MEDS: MEROPENEM 1,000 MG in SODIUM CHLORIDE 0.9% 100 ML IV SCH ×2 (08:32→17:30)
[2018-07-30] MEDS: BUDESONIDE/FORMOTEROL 160-4.5 INHALER 6 GM INH SCH ×2 (09:45→20:20)
[2018-07-30] MEDS: ASPIRIN EC 81 MG TABLET PO SCH (09:45)
[2018-07-30] MEDS: METOPROLOL SUCCINATE XL 50 MG TABLET PO SCH (09:45)
[2018-07-30] MEDS: sitaGLIPtin 25 MG TABLET PO SCH (09:45)
[2018-07-30] MEDS: cycloSPORINE OPH EMUL 1 VIAL BOTH EYES SCH ×2 (09:45→20:11)
[2018-07-30] MEDS: tiZANidine 4 MG TABLET PO PRN (09:45)
[2018-07-30] MEDS: PREGABALIN 100 MG CAPSULE PO SCH ×2 (09:45→20:11)
[2018-07-30] MEDS: FLUTICASONE 50 MCG NASAL SPRAY 16 GM BOTTLE BOTH NARES SCH ×2 (09:45→20:19)
[2018-07-30] MEDS: PANTOPRAZOLE 40 MG TABLET PO SCH (09:45)
[2018-07-30] MEDS ORDERED: LEVALBUTEROL 0.31 MG/3 ML NEB RESP TX PRN (11:40)
[2018-07-30] MEDS ORDERED: DEXTROSE 50% 25 GM/50 ML SYRINGE IV PRN (12:12)
[2018-07-30] MEDS ORDERED: GLUCAGON 1 MG VIAL IM PRN (12:12)
[2018-07-30] MEDS: INSULIN REGULAR 100 UNIT/ML SUBCUT SCH ×2 (18:30→20:26)
[2018-07-30] MEDS: MORPHINE 4 MG/1 ML VIAL IV PRN (20:12)
[2018-07-30] MEDS ORDERED: ENOXAPARIN 40 MG/0.4 ML SYRINGE SUBCUT SCH (21:00)
[2018-07-31] MEDS: MORPHINE 4 MG/1 ML VIAL IV PRN ×3 (00:14→12:20)
[2018-07-31] MEDS: MEROPENEM 1,000 MG in SODIUM CHLORIDE 0.9% 100 ML IV SCH ×2 (00:19→12:09)
[2018-07-31 05:20] LABS: Basophils # 0.1 10*3/uL (0.0-0.2); Basophils % 0.5 % (0.0-0.8); Eosinophils # 0.1 10*3/uL (0.0-0.87); Eosinophils % 0.9 % (0.00-10.9); Hematocrit 38.7 VOL% (42.0-52.0); Hemoglobin 11.9 GM/DL (14.0-18.0); Immature Granulocytes % 0.9 %; Immature Granulocytes Absolute 0.14 #; Lymphocytes # 1.1 10*3/uL (1.4-4.0); Lymphocytes % 6.5 % (21.2-54.2); Mean Corpuscular HGB Conc 30.7 GM/DL (32-36); Mean Corpuscular Hemoglobin 32 PG (27-34); Mean Corpuscular Volume 103.5 FL (87-102); Mean Platelet Volume 12.3 FL (9.6-12.0); Monocytes # 1.8 10*3/uL (0.11-0.8); Monocytes % 11.3 % (1.7-12.7); NRBC # 0.06 10*3/uL; Neutrophils # 12.8 10*3/uL (1.4-7.4); Neutrophils % 79.9 % (38.7-73.9); Platelet Count 47 T/CUMM (130-400); Red Blood Count 3.74 MC/CUMM (3.8-5.5); Red Cell Distribution Width 24.1 % (9.3-17.3); White Blood Count 16.1 T/CUMM (4-12)
[2018-07-31 05:37] LABS: Calcium 9.7 MG/DL (8.5-10.1); Potassium 3.1 MMOL/L (3.5-5.1)
[2018-07-31 05:42] LABS: Risk Ratio 2.55
[2018-07-31 05:48] LABS: Eosinophils 1 % (0-10); Hypochromasia 1+; Lymphocytes 3 % (20-55); Macrocytosis Slight; Ovalocytes Slight; Platelet Estimate Decreased; Segmented Neutrophils 89 % (50-85); Total Cells Counted 100
[2018-07-31 05:49] LABS: Polychromasia Slight
[2018-07-31] MEDS: POTASSIUM CHLORIDE 20 MEQ TABLET PO SCH (07:53)
[2018-07-31] MEDS ORDERED: POTASSIUM CHLORIDE 20 MEQ PACK PO ONE (08:08)
[2018-07-31] MEDS ORDERED: MAGNESIUM SULF RIDER 2 GM in PREMIX 1 EACH IV ONE ×2 (08:08→10:06)
[2018-07-31] MEDS: TICAGRELOR 90 MG TABLET PO SCH ×2 (09:27→09:52)
[2018-07-31] MEDS: oxyCODONE/ACETAMINOPHEN 5-325 MG TABLET PO PRN ×2 (09:27→14:13)
[2018-07-31] MEDS: PREGABALIN 100 MG CAPSULE PO SCH ×2 (09:28→22:27)
[2018-07-31] MEDS: cycloSPORINE OPH EMUL 1 VIAL BOTH EYES SCH ×2 (09:28→22:27)
[2018-07-31] MEDS: ASPIRIN EC 81 MG TABLET PO SCH (09:28)
[2018-07-31] MEDS: PANTOPRAZOLE 40 MG TABLET PO SCH (09:28)
[2018-07-31] MEDS: sitaGLIPtin 25 MG TABLET PO SCH (09:28)
[2018-07-31] MEDS: METOPROLOL SUCCINATE XL 50 MG TABLET PO SCH (09:28)
[2018-07-31] MEDS: FUROSEMIDE 40 MG/4 ML VIAL IV SCH ×2 (09:30→15:33)
[2018-07-31] MEDS: BUDESONIDE/FORMOTEROL 160-4.5 INHALER 6 GM INH SCH ×2 (09:44→22:27)
[2018-07-31] MEDS: FLUTICASONE 50 MCG NASAL SPRAY 16 GM BOTTLE BOTH NARES SCH ×2 (09:44→22:27)
[2018-07-31] MEDS: DIGOXIN 0.5 MG/2 ML AMP IV SCH ×3 (09:45→22:28)
[2018-07-31] MEDS: INSULIN REGULAR 100 UNIT/ML SUBCUT SCH ×4 (09:45→21:50)
[2018-07-31] MEDS: LEVOFLOXACIN INJ 750 MG in PREMIX 1 EACH IV SCH (14:08)
[2018-07-31] MEDS: HEPARIN DRIP 25,000 UNITS/500 ML PREMIX IV SCH (14:09)
[2018-07-31] MEDS: tiZANidine 4 MG TABLET PO PRN (14:13)
[2018-07-31] MEDS ORDERED: SODIUM CHLORIDE 0.9% 1,000 ML IV PRN ×2 (15:46→16:14)
[2018-07-31] MEDS ORDERED: ONDANSETRON 4 MG/2 ML VIAL IV PRN (15:47)
[2018-07-31 16:47] LABS: Basophils # 0.1 10*3/uL (0.0-0.2); Basophils % 0.4 % (0.0-0.8); Eosinophils # 0.1 10*3/uL (0.0-0.87); Eosinophils % 0.2 % (0.00-10.9); Hematocrit 40.9 VOL% (42.0-52.0); Hemoglobin 12.5 GM/DL (14.0-18.0); Immature Granulocytes Absolute 0.21 #; Lymphocytes # 0.7 10*3/uL (1.4-4.0); Lymphocytes % 3.6 % (21.2-54.2); Mean Corpuscular HGB Conc 30.6 GM/DL (32-36); Mean Corpuscular Hemoglobin 32 PG (27-34); Mean Corpuscular Volume 103.5 FL (87-102); Monocytes # 2.5 10*3/uL (0.11-0.8); Monocytes % 12.1 % (1.7-12.7); NRBC # 0.05 10*3/uL; Neutrophils # 17.2 10*3/uL (1.4-7.4); Neutrophils % 82.7 % (38.7-73.9); Platelet Count 55 T/CUMM (130-400); Red Blood Count 3.95 MC/CUMM (3.8-5.5); Red Cell Distribution Width 24.4 % (9.3-17.3); White Blood Count 20.8 T/CUMM (4-12)
[2018-07-31 17:15] LABS: Lymphocytes 5 % (20-55); Platelet Estimate Decreased; Segmented Neutrophils 88 % (50-85); Total Cells Counted 100
[2018-07-31 17:16] LABS: Macrocytosis 1+; Polychromasia Few
[2018-07-31] MEDS: LIDOCAINE 5% PATCH TRANSDERM SCH (17:32)
[2018-07-31] MEDS ORDERED: MAGNESIUM SULF RIDER 4 GM in PREMIX 1 EACH IV PRN (19:37)
[2018-07-31] MEDS: POTASSIUM CHLORIDE RIDER 10 MEQ in PREMIX 1 EACH IV PRN ×4 (20:18→23:19)
[2018-07-31 20:25] LABS: Potassium 3.2 MMOL/L (3.5-5.1)
[2018-07-31 21:10] LABS: PT Patient Result 63.8 SECS
[2018-07-31 21:13] LABS: Partial Thromboplastin Time > 320.0 SECS (0-40)
[2018-07-31] MEDS: MAGNESIUM SULF RIDER 2 GM in PREMIX 1 EACH IV PRN (21:30)
[2018-07-31 22:14] LABS: INR 1.4; PT Patient Result 15.4 SECS; Partial Thromboplastin Time 29.8 SECS (0-40)
[2018-08-01] MEDS: oxyCODONE/ACETAMINOPHEN 5-325 MG TABLET PO PRN ×3 (00:38→19:40)
[2018-08-01 02:24] LABS: Basophils # 0.1 10*3/uL (0.0-0.2); Basophils % 0.4 % (0.0-0.8); Eosinophils % 0.1 % (0.00-10.9); Hematocrit 38.8 VOL% (42.0-52.0); Hemoglobin 11.8 GM/DL (14.0-18.0); Immature Granulocytes % 0.9 %; Immature Granulocytes Absolute 0.21 #; Lymphocytes # 0.7 10*3/uL (1.4-4.0); Lymphocytes % 3.2 % (21.2-54.2); Mean Corpuscular HGB Conc 30.4 GM/DL (32-36); Mean Corpuscular Hemoglobin 32 PG (27-34); Mean Corpuscular Volume 103.5 FL (87-102); Mean Platelet Volume 12.1 FL (9.6-12.0); Monocytes # 2.7 10*3/uL (0.11-0.8); NRBC # 0.05 10*3/uL; Neutrophils # 18.6 10*3/uL (1.4-7.4); Neutrophils % 83.4 % (38.7-73.9); Platelet Count 81 T/CUMM (130-400); Red Blood Count 3.75 MC/CUMM (3.8-5.5); Red Cell Distribution Width 24.2 % (9.3-17.3); White Blood Count 22.3 T/CUMM (4-12)
[2018-08-01 02:35] LABS: INR 1.4; PT Patient Result 14.7 SECS; Partial Thromboplastin Time 28.2 SECS (0-40)
[2018-08-01 03:00] LABS: Calcium 9.5 MG/DL (8.5-10.1); Potassium 3.7 MMOL/L (3.5-5.1)
[2018-08-01 03:04] LABS: Bilirubin,Total 2.6 MG/DL (0.2-1.0); Calcium 9.4 MG/DL (8.5-10.1); Osmolality,Calculated 278.8 MOS/KG (273-304); Potassium 3.8 MMOL/L (3.5-5.1); Total Protein 6.3 G/DL (6.4-8.3)
[2018-08-01 03:52] LABS: Lymphocytes 8 % (20-55); Platelet Estimate Decreased; Polychromasia Few; Segmented Neutrophils 88 % (50-85); Total Cells Counted 100
[2018-08-01 06:00] LABS: INR 1.3; PT Patient Result 14.1 SECS; Partial Thromboplastin Time 24.7 SECS (0-40)
[2018-08-01] MEDS ORDERED: DIGOXIN 0.5 MG/2 ML AMP ONE (06:39)
[2018-08-01] MEDS: DIGOXIN 0.5 MG/2 ML AMP IV SCH (06:41)
[2018-08-01] MEDS: INSULIN REGULAR 100 UNIT/ML SUBCUT SCH ×4 (08:13→21:18)
[2018-08-01] MEDS ORDERED: fentaNYL 100 MCG/2 ML VIAL IV ONE (08:17)
[2018-08-01] MEDS ORDERED: MIDAZOLAM 2 MG/2 ML VIAL IV ONE (08:17)
[2018-08-01] MEDS: MORPHINE 4 MG/1 ML VIAL IV PRN ×4 (10:12→21:59)
[2018-08-01] MEDS: sitaGLIPtin 25 MG TABLET PO SCH (10:33)
[2018-08-01] MEDS: METOPROLOL SUCCINATE XL 50 MG TABLET PO SCH (10:34)
[2018-08-01] MEDS: PREGABALIN 100 MG CAPSULE PO SCH ×2 (10:34→21:10)
[2018-08-01] MEDS: PANTOPRAZOLE 40 MG TABLET PO SCH (10:34)
[2018-08-01] MEDS: FUROSEMIDE 40 MG/4 ML VIAL IV SCH ×2 (10:35→16:26)
[2018-08-01] MEDS: FLUTICASONE 50 MCG NASAL SPRAY 16 GM BOTTLE BOTH NARES SCH ×2 (10:37→21:11)
[2018-08-01] MEDS: BUDESONIDE/FORMOTEROL 160-4.5 INHALER 6 GM INH SCH ×2 (10:37→21:12)
[2018-08-01] MEDS: cycloSPORINE OPH EMUL 1 VIAL BOTH EYES SCH ×2 (12:14→21:13)
[2018-08-01 12:47] LABS: INR 1.3; PT Patient Result 14.5 SECS
[2018-08-01 12:56] LABS: Partial Thromboplastin Time 63.5 SECS (0-40)
[2018-08-01] MEDS: HEPARIN DRIP 25,000 UNITS/500 ML PREMIX IV SCH (13:05)
[2018-08-01] MEDS: DIGOXIN 0.125 MG TABLET PO SCH (13:08)
[2018-08-01] MEDS: LEVOFLOXACIN INJ 750 MG in PREMIX 1 EACH IV SCH (14:10)
[2018-08-01] MEDS: LIDOCAINE 5% PATCH TRANSDERM SCH (16:26)
[2018-08-01] MEDS: POTASSIUM CHLORIDE RIDER 10 MEQ in PREMIX 1 EACH IV PRN ×2 (18:10→19:41)
[2018-08-01] MEDS: tiZANidine 4 MG TABLET PO PRN (23:57)
[2018-08-02] MEDS: HEPARIN DRIP 25,000 UNITS/500 ML PREMIX IV SCH ×2 (02:36→18:57)
[2018-08-02] MEDS: oxyCODONE/ACETAMINOPHEN 5-325 MG TABLET PO PRN ×2 (04:22→23:40)
[2018-08-02 05:07] LABS: Basophils # 0.1 10*3/uL (0.0-0.2); Basophils % 0.2 % (0.0-0.8); Hematocrit 39.1 VOL% (42.0-52.0); Hemoglobin 11.8 GM/DL (14.0-18.0); Immature Granulocytes % 1.3 %; Immature Granulocytes Absolute 0.34 #; Lymphocytes # 0.7 10*3/uL (1.4-4.0); Lymphocytes % 2.5 % (21.2-54.2); Mean Corpuscular HGB Conc 30.2 GM/DL (32-36); Mean Corpuscular Hemoglobin 32 PG (27-34); Mean Corpuscular Volume 107.1 FL (87-102); Mean Platelet Volume 13.3 FL (9.6-12.0); Monocytes # 2.4 10*3/uL (0.11-0.8); Neutrophils # 23.5 10*3/uL (1.4-7.4); Red Blood Count 3.65 MC/CUMM (3.8-5.5); Red Cell Distribution Width 23.8 % (9.3-17.3)
[2018-08-02 05:08] LABS: Platelet Count 56 T/CUMM (130-400)
[2018-08-02 05:29] LABS: Calcium 9.2 MG/DL (8.5-10.1); Osmolality,Calculated 279.5 MOS/KG (273-304); Potassium 3.6 MMOL/L (3.5-5.1)
[2018-08-02 05:43] LABS: Anisocytosis 2+; Band Neutrophils 1 % (0-10); Lymphocytes 4 % (20-55); Macrocytosis 2+; Platelet Estimate Decreased; Segmented Neutrophils 88 % (50-85); Total Cells Counted 100
[2018-08-02] MEDS: MORPHINE 4 MG/1 ML VIAL IV PRN ×3 (08:15→18:09)
[2018-08-02] MEDS: sitaGLIPtin 25 MG TABLET PO SCH (09:31)
[2018-08-02] MEDS: PREGABALIN 100 MG CAPSULE PO SCH ×2 (09:31→20:36)
[2018-08-02] MEDS: PANTOPRAZOLE 40 MG TABLET PO SCH (09:32)
[2018-08-02] MEDS: BUDESONIDE/FORMOTEROL 160-4.5 INHALER 6 GM INH SCH ×2 (09:34→20:37)
[2018-08-02] MEDS: FLUTICASONE 50 MCG NASAL SPRAY 16 GM BOTTLE BOTH NARES SCH ×2 (09:34→20:37)
[2018-08-02] MEDS: cycloSPORINE OPH EMUL 1 VIAL BOTH EYES SCH ×2 (09:35→20:39)
[2018-08-02] MEDS: FUROSEMIDE 40 MG/4 ML VIAL IV SCH (09:36)
[2018-08-02] MEDS: LEVOFLOXACIN INJ 750 MG in PREMIX 1 EACH IV SCH (09:40)
[2018-08-02] MEDS: INSULIN REGULAR 100 UNIT/ML SUBCUT SCH ×4 (09:44→22:32)
[2018-08-02] MEDS: METOPROLOL SUCCINATE XL 50 MG TABLET PO SCH (10:26)
[2018-08-02] MEDS ORDERED: SODIUM CHLORIDE 0.9% 250 ML IV ONE (12:47)
[2018-08-02] MEDS: DIGOXIN 0.125 MG TABLET PO SCH (13:18)
[2018-08-02] MEDS: POTASSIUM CHLORIDE RIDER 10 MEQ in PREMIX 1 EACH IV PRN ×2 (16:00→18:46)
[2018-08-02] MEDS: LIDOCAINE 5% PATCH TRANSDERM SCH (16:00)
[2018-08-02] MEDS: tiZANidine 4 MG TABLET PO PRN (20:36)
[2018-08-03 03:46] LABS: Basophils % 0.1 % (0.0-0.8); Eosinophils % 0.2 % (0.00-10.9); Hematocrit 30.6 VOL% (42.0-52.0); Hemoglobin 9.1 GM/DL (14.0-18.0); Immature Granulocytes % 0.7 %; Lymphocytes # 0.4 10*3/uL (1.4-4.0); Mean Corpuscular HGB Conc 29.7 GM/DL (32-36); Mean Corpuscular Hemoglobin 32 PG (27-34); Mean Corpuscular Volume 108.5 FL (87-102); Mean Platelet Volume 13.6 FL (9.6-12.0); Monocytes # 1.1 10*3/uL (0.11-0.8); Monocytes % 7.7 % (1.7-12.7); Neutrophils # 12.3 10*3/uL (1.4-7.4); Neutrophils % 88.3 % (38.7-73.9); Red Blood Count 2.82 MC/CUMM (3.8-5.5); Red Cell Distribution Width 22.9 % (9.3-17.3); White Blood Count 13.9 T/CUMM (4-12)
[2018-08-03 03:50] LABS: Platelet Count 35 T/CUMM (130-400)
[2018-08-03 03:57] LABS: Calcium 9.1 MG/DL (8.5-10.1); Osmolality,Calculated 276.8 MOS/KG (273-304); Potassium 3.7 MMOL/L (3.5-5.1)
[2018-08-03 04:47] LABS: Lymphocytes 3 % (20-55); Segmented Neutrophils 89 % (50-85)
[2018-08-03 04:50] LABS: Ovalocytes 1+; Platelet Estimate Decreased; Polychromasia Few
[2018-08-03 04:51] LABS: Total Cells Counted 100
[2018-08-03 04:52] LABS: Hypochromasia Slight; Tear Drop Cells Few
[2018-08-03] MEDS: INSULIN REGULAR 100 UNIT/ML SUBCUT SCH ×4 (07:51→21:54)
[2018-08-03] MEDS: oxyCODONE/ACETAMINOPHEN 5-325 MG TABLET PO PRN ×3 (09:15→20:13)
[2018-08-03] MEDS: PREGABALIN 100 MG CAPSULE PO SCH ×2 (09:15→21:54)
[2018-08-03] MEDS: PANTOPRAZOLE 40 MG TABLET PO SCH (09:16)
[2018-08-03] MEDS: BUDESONIDE/FORMOTEROL 160-4.5 INHALER 6 GM INH SCH ×2 (09:16→21:55)
[2018-08-03] MEDS: sitaGLIPtin 25 MG TABLET PO SCH (09:16)
[2018-08-03] MEDS: FLUTICASONE 50 MCG NASAL SPRAY 16 GM BOTTLE BOTH NARES SCH ×2 (09:16→21:55)
[2018-08-03] MEDS: cycloSPORINE OPH EMUL 1 VIAL BOTH EYES SCH ×2 (09:16→21:53)
[2018-08-03] MEDS: LEVOFLOXACIN INJ 750 MG in PREMIX 1 EACH IV SCH (09:17)
[2018-08-03] MEDS: HEPARIN DRIP 25,000 UNITS/500 ML PREMIX IV SCH (10:42)
[2018-08-03] MEDS: guaiFENesin/CODEINE 5 ML LIQUID PO PRN ×3 (10:56→23:56)
[2018-08-03 11:17] LABS: INR 1.1; PT Patient Result 12.2 SECS; Partial Thromboplastin Time 33.6 SECS (0-40)
[2018-08-03] MEDS: DIGOXIN 0.125 MG TABLET PO SCH (14:25)
[2018-08-03] MEDS: LIDOCAINE 5% PATCH TRANSDERM SCH (15:40)
[2018-08-03] MEDS: MORPHINE 4 MG/1 ML VIAL IV PRN ×2 (17:52→21:53)
[2018-08-04] MEDS: tiZANidine 4 MG TABLET PO PRN ×2 (04:01→20:20)
[2018-08-04] MEDS: oxyCODONE/ACETAMINOPHEN 5-325 MG TABLET PO PRN ×2 (04:01→10:10)
[2018-08-04 05:21] LABS: Basophils % 0.2 % (0.0-0.8); Eosinophils % 0.2 % (0.00-10.9); Hematocrit 34.3 VOL% (42.0-52.0); Hemoglobin 10.4 GM/DL (14.0-18.0); Immature Granulocytes % 0.6 %; Immature Granulocytes Absolute 0.08 #; Lymphocytes # 0.4 10*3/uL (1.4-4.0); Lymphocytes % 2.7 % (21.2-54.2); Mean Corpuscular HGB Conc 30.3 GM/DL (32-36); Mean Corpuscular Hemoglobin 32 PG (27-34); Mean Corpuscular Volume 106.5 FL (87-102); Monocytes # 1.1 10*3/uL (0.11-0.8); Monocytes % 8.1 % (1.7-12.7); Neutrophils # 11.4 10*3/uL (1.4-7.4); Neutrophils % 88.2 % (38.7-73.9); Red Blood Count 3.22 MC/CUMM (3.8-5.5); Red Cell Distribution Width 22.8 % (9.3-17.3); White Blood Count 12.9 T/CUMM (4-12)
[2018-08-04 05:24] LABS: Platelet Count 35 T/CUMM (130-400)
[2018-08-04 05:40] LABS: Calcium 9.9 MG/DL (8.5-10.1); Osmolality,Calculated 276.5 MOS/KG (273-304); Potassium 3.4 MMOL/L (3.5-5.1)
[2018-08-04 05:48] LABS: Hypochromasia Slight; Platelet Estimate Decreased; Polychromasia Few; Segmented Neutrophils 95 % (50-85); Total Cells Counted 100
[2018-08-04] MEDS ORDERED: POTASSIUM CHLORIDE 20 MEQ TABLET PO ONE (08:00)
[2018-08-04] MEDS: INSULIN REGULAR 100 UNIT/ML SUBCUT SCH ×4 (08:23→20:17)
[2018-08-04 08:53] LABS: Albumin 2.1 G/DL (3.4-5.0); Bilirubin,Direct 1.23 MG/DL (0.0-0.20); Bilirubin,Total 2.2 MG/DL (0.2-1.0); Total Protein 5.8 G/DL (6.4-8.3)
[2018-08-04] MEDS ORDERED: FUROSEMIDE 40 MG/4 ML VIAL IV ONE (09:09)
[2018-08-04] MEDS: PREGABALIN 100 MG CAPSULE PO SCH ×2 (09:59→20:17)
[2018-08-04] MEDS: sitaGLIPtin 25 MG TABLET PO SCH (09:59)
[2018-08-04] MEDS: cycloSPORINE OPH EMUL 1 VIAL BOTH EYES SCH ×2 (10:00→20:17)
[2018-08-04] MEDS: FLUTICASONE 50 MCG NASAL SPRAY 16 GM BOTTLE BOTH NARES SCH ×2 (10:00→20:17)
[2018-08-04] MEDS: PANTOPRAZOLE 40 MG TABLET PO SCH (10:00)
[2018-08-04] MEDS: BUDESONIDE/FORMOTEROL 160-4.5 INHALER 6 GM INH SCH ×2 (10:01→20:17)
[2018-08-04] MEDS: LEVOFLOXACIN INJ 750 MG in PREMIX 1 EACH IV SCH (10:55)
[2018-08-04] MEDS: MAGNESIUM SULF RIDER 2 GM in PREMIX 1 EACH IV PRN (11:38)
[2018-08-04] MEDS: DIGOXIN 0.125 MG TABLET PO SCH (12:02)
[2018-08-04] MEDS: METOPROLOL TARTRATE 50 MG TABLET PO SCH ×2 (14:15→20:22)
[2018-08-04] MEDS ORDERED: DIGOXIN 0.5 MG/2 ML AMP IV PRN (16:30)
[2018-08-04] MEDS: LIDOCAINE 5% PATCH TRANSDERM SCH (16:54)
[2018-08-05] MEDS: oxyCODONE/ACETAMINOPHEN 5-325 MG TABLET PO PRN ×4 (03:50→23:48)
[2018-08-05 04:17] LABS: Basophils % 0.2 % (0.0-0.8); Eosinophils # 0.1 10*3/uL (0.0-0.87); Eosinophils % 0.5 % (0.00-10.9); Hematocrit 33.9 VOL% (42.0-52.0); Hemoglobin 10.2 GM/DL (14.0-18.0); Immature Granulocytes % 0.3 %; Immature Granulocytes Absolute 0.03 #; Lymphocytes # 0.7 10*3/uL (1.4-4.0); Lymphocytes % 6.5 % (21.2-54.2); Mean Corpuscular HGB Conc 30.1 GM/DL (32-36); Mean Corpuscular Hemoglobin 32 PG (27-34); Mean Corpuscular Volume 106.3 FL (87-102); Monocytes # 1.1 10*3/uL (0.11-0.8); Monocytes % 9.2 % (1.7-12.7); Neutrophils # 9.6 10*3/uL (1.4-7.4); Neutrophils % 83.3 % (38.7-73.9); Red Blood Count 3.19 MC/CUMM (3.8-5.5); Red Cell Distribution Width 22.7 % (9.3-17.3); White Blood Count 11.5 T/CUMM (4-12)
[2018-08-05 04:34] LABS: Calcium 10.1 MG/DL (8.5-10.1); Osmolality,Calculated 280.3 MOS/KG (273-304); Platelet Count 39 T/CUMM (130-400); Potassium 3.5 MMOL/L (3.5-5.1)
[2018-08-05] MEDS ORDERED: FUROSEMIDE 40 MG/4 ML VIAL IV ONE (07:57)
[2018-08-05] MEDS: INSULIN REGULAR 100 UNIT/ML SUBCUT SCH ×4 (08:26→21:59)
[2018-08-05] MEDS: BUDESONIDE/FORMOTEROL 160-4.5 INHALER 6 GM INH SCH ×2 (08:42→21:57)
[2018-08-05] MEDS: FLUTICASONE 50 MCG NASAL SPRAY 16 GM BOTTLE BOTH NARES SCH ×2 (08:42→21:57)
[2018-08-05] MEDS: PANTOPRAZOLE 40 MG TABLET PO SCH (08:42)
[2018-08-05] MEDS: PREGABALIN 100 MG CAPSULE PO SCH ×2 (08:43→21:56)
[2018-08-05] MEDS: METOPROLOL TARTRATE 50 MG TABLET PO SCH ×2 (08:43→21:56)
[2018-08-05] MEDS: sitaGLIPtin 25 MG TABLET PO SCH (08:43)
[2018-08-05] MEDS: cycloSPORINE OPH EMUL 1 VIAL BOTH EYES SCH ×2 (08:43→21:58)
[2018-08-05] MEDS: LEVOFLOXACIN INJ 750 MG in PREMIX 1 EACH IV SCH (09:49)
[2018-08-05] MEDS ORDERED: POTASSIUM CHLORIDE 20 MEQ TABLET PO ONE (09:49)
[2018-08-05] MEDS: MAGNESIUM SULF RIDER 2 GM in PREMIX 1 EACH IV PRN (12:27)
[2018-08-05] MEDS: DIGOXIN 0.125 MG TABLET PO SCH (12:30)
[2018-08-05] MEDS ORDERED: BISACODYL 5 MG TABLET PO ONE (13:43)
[2018-08-05] MEDS: LIDOCAINE 5% PATCH TRANSDERM SCH (15:28)
[2018-08-05] MEDS: tiZANidine 4 MG TABLET PO PRN (22:04)
[2018-08-06] MEDS: guaiFENesin/CODEINE 5 ML LIQUID PO PRN (01:51)
[2018-08-06 05:27] LABS: Basophils % 0.3 % (0.0-0.8); Eosinophils % 0.3 % (0.00-10.9); Hematocrit 33.4 VOL% (42.0-52.0); Hemoglobin 10.2 GM/DL (14.0-18.0); Immature Granulocytes % 0.5 %; Immature Granulocytes Absolute 0.06 #; Lymphocytes # 0.6 10*3/uL (1.4-4.0); Lymphocytes % 5.1 % (21.2-54.2); Mean Corpuscular HGB Conc 30.5 GM/DL (32-36); Mean Corpuscular Hemoglobin 32 PG (27-34); Mean Corpuscular Volume 105.7 FL (87-102); Monocytes # 1.2 10*3/uL (0.11-0.8); Monocytes % 10.5 % (1.7-12.7); Neutrophils # 9.2 10*3/uL (1.4-7.4); Neutrophils % 83.3 % (38.7-73.9); Red Blood Count 3.16 MC/CUMM (3.8-5.5); Red Cell Distribution Width 21.9 % (9.3-17.3)
[2018-08-06 05:33] LABS: Platelet Count 39 T/CUMM (130-400)
[2018-08-06 05:38] LABS: Osmolality,Calculated 279.4 MOS/KG (273-304); Potassium 3.4 MMOL/L (3.5-5.1)
[2018-08-06 06:28] LABS: Hypochromasia 1+; Ovalocytes Slight; Platelet Estimate Decreased
[2018-08-06] MEDS: INSULIN REGULAR 100 UNIT/ML SUBCUT SCH ×4 (09:01→22:06)
[2018-08-06] MEDS: PREGABALIN 100 MG CAPSULE PO SCH ×2 (09:21→22:05)
[2018-08-06] MEDS: METOPROLOL TARTRATE 50 MG TABLET PO SCH ×2 (09:22→22:05)
[2018-08-06] MEDS: PANTOPRAZOLE 40 MG TABLET PO SCH (09:22)
[2018-08-06] MEDS: sitaGLIPtin 25 MG TABLET PO SCH (09:22)
[2018-08-06] MEDS: POLYETHYLENE GLYCOL POWDER 17 GM PACK PO SCH (09:24)
[2018-08-06] MEDS: FLUTICASONE 50 MCG NASAL SPRAY 16 GM BOTTLE BOTH NARES SCH ×2 (09:30→22:06)
[2018-08-06] MEDS: LEVOFLOXACIN INJ 750 MG in PREMIX 1 EACH IV SCH (09:30)
[2018-08-06] MEDS: BUDESONIDE/FORMOTEROL 160-4.5 INHALER 6 GM INH SCH ×2 (09:30→22:06)
[2018-08-06] MEDS: POTASSIUM CHLORIDE RIDER 10 MEQ in PREMIX 1 EACH IV PRN ×3 (09:31→17:10)
[2018-08-06] MEDS: cycloSPORINE OPH EMUL 1 VIAL BOTH EYES SCH ×2 (09:39→22:05)
[2018-08-06] MEDS: MAGNESIUM SULF RIDER 2 GM in PREMIX 1 EACH IV PRN (11:13)
[2018-08-06] MEDS: oxyCODONE/ACETAMINOPHEN 5-325 MG TABLET PO PRN ×2 (13:02→22:06)
[2018-08-06] MEDS: DIGOXIN 0.125 MG TABLET PO SCH (13:04)
[2018-08-06] MEDS: LIDOCAINE 5% PATCH TRANSDERM SCH (17:11)
[2018-08-07] MEDS: tiZANidine 4 MG TABLET PO PRN ×2 (01:05→20:55)
[2018-08-07 05:03] LABS: Basophils % 0.3 % (0.0-0.8); Eosinophils % 0.4 % (0.00-10.9); Hemoglobin 9.3 GM/DL (14.0-18.0); Immature Granulocytes % 0.7 %; Immature Granulocytes Absolute 0.07 #; Lymphocytes # 0.6 10*3/uL (1.4-4.0); Lymphocytes % 6.2 % (21.2-54.2); Mean Corpuscular Hemoglobin 32 PG (27-34); Mean Corpuscular Volume 107.3 FL (87-102); Monocytes # 1.1 10*3/uL (0.11-0.8); Monocytes % 10.8 % (1.7-12.7); Neutrophils # 7.9 10*3/uL (1.4-7.4); Neutrophils % 81.6 % (38.7-73.9); Platelet Count 49 T/CUMM (130-400); Red Blood Count 2.89 MC/CUMM (3.8-5.5); Red Cell Distribution Width 21.3 % (9.3-17.3); White Blood Count 9.7 T/CUMM (4-12)
[2018-08-07 05:19] LABS: Calcium 9.7 MG/DL (8.5-10.1); Potassium 4.3 MMOL/L (3.5-5.1)
[2018-08-07 05:23] LABS: Hypochromasia 1+; Ovalocytes Slight; Platelet Estimate Decreased
[2018-08-07] MEDS: LEVOFLOXACIN INJ 750 MG in PREMIX 1 EACH IV SCH (09:02)
[2018-08-07] MEDS: cycloSPORINE OPH EMUL 1 VIAL BOTH EYES SCH ×2 (09:06→20:57)
[2018-08-07] MEDS: POLYETHYLENE GLYCOL POWDER 17 GM PACK PO SCH (09:06)
[2018-08-07] MEDS: METOPROLOL TARTRATE 25 MG TABLET PO SCH ×2 (09:06→20:55)
[2018-08-07] MEDS: sitaGLIPtin 25 MG TABLET PO SCH (09:06)
[2018-08-07] MEDS: PANTOPRAZOLE 40 MG TABLET PO SCH (09:06)
[2018-08-07] MEDS: PREGABALIN 100 MG CAPSULE PO SCH ×2 (09:06→20:55)
[2018-08-07] MEDS: BUDESONIDE/FORMOTEROL 160-4.5 INHALER 6 GM INH SCH ×2 (09:07→20:56)
[2018-08-07] MEDS: FLUTICASONE 50 MCG NASAL SPRAY 16 GM BOTTLE BOTH NARES SCH ×2 (09:07→20:54)
[2018-08-07] MEDS: INSULIN REGULAR 100 UNIT/ML SUBCUT SCH ×4 (09:07→20:55)
[2018-08-07] MEDS: oxyCODONE/ACETAMINOPHEN 5-325 MG TABLET PO PRN ×2 (09:08→17:09)
[2018-08-07] MEDS ORDERED: SODIUM CHLORIDE 0.9% 1,000 ML IV PRN (12:08)
[2018-08-07] MEDS: DIGOXIN 0.125 MG TABLET PO SCH (12:21)
[2018-08-07] MEDS: LIDOCAINE 5% PATCH TRANSDERM SCH (17:01)
[2018-08-07] MEDS: guaiFENesin/CODEINE 5 ML LIQUID PO PRN (17:09)
[2018-08-08 04:34] LABS: Basophils % 0.4 % (0.0-0.8); Eosinophils # 0.1 10*3/uL (0.0-0.87); Eosinophils % 1.6 % (0.00-10.9); Hematocrit 30.9 VOL% (42.0-52.0); Hemoglobin 9.3 GM/DL (14.0-18.0); Immature Granulocytes % 0.7 %; Immature Granulocytes Absolute 0.06 #; Lymphocytes # 0.8 10*3/uL (1.4-4.0); Lymphocytes % 9.2 % (21.2-54.2); Mean Corpuscular HGB Conc 30.1 GM/DL (32-36); Mean Corpuscular Hemoglobin 32 PG (27-34); Mean Corpuscular Volume 105.8 FL (87-102); Mean Platelet Volume 12.2 FL (9.6-12.0); Monocytes # 0.9 10*3/uL (0.11-0.8); Monocytes % 10.8 % (1.7-12.7); Neutrophils # 6.4 10*3/uL (1.4-7.4); Neutrophils % 77.3 % (38.7-73.9); Platelet Count 77 T/CUMM (130-400); Red Blood Count 2.92 MC/CUMM (3.8-5.5); Red Cell Distribution Width 20.9 % (9.3-17.3); White Blood Count 8.2 T/CUMM (4-12)
[2018-08-08 04:54] LABS: Calcium 9.8 MG/DL (8.5-10.1); Osmolality,Calculated 279.4 MOS/KG (273-304); Potassium 4.2 MMOL/L (3.5-5.1)
[2018-08-08 04:57] LABS: Band Neutrophils 1 % (0-10); Eosinophils 1 % (0-10); Lymphocytes 11 % (20-55); Segmented Neutrophils 83 % (50-85); Total Cells Counted 100
[2018-08-08 04:58] LABS: Anisocytosis 1+; Hypochromasia Slight; Platelet Estimate Decreased; Tear Drop Cells Few
[2018-08-08] MEDS: INSULIN REGULAR 100 UNIT/ML SUBCUT SCH ×4 (06:58→21:56)
[2018-08-08] MEDS: oxyCODONE/ACETAMINOPHEN 5-325 MG TABLET PO PRN (09:50)
[2018-08-08] MEDS: PREGABALIN 100 MG CAPSULE PO SCH ×2 (09:51→21:50)
[2018-08-08] MEDS: POLYETHYLENE GLYCOL POWDER 17 GM PACK PO SCH (09:51)
[2018-08-08] MEDS: METOPROLOL TARTRATE 25 MG TABLET PO SCH ×2 (09:52→21:50)
[2018-08-08] MEDS: sitaGLIPtin 25 MG TABLET PO SCH (09:52)
[2018-08-08] MEDS: PANTOPRAZOLE 40 MG TABLET PO SCH (09:52)
[2018-08-08] MEDS: BUDESONIDE/FORMOTEROL 160-4.5 INHALER 6 GM INH SCH ×2 (09:53→21:56)
[2018-08-08] MEDS: cycloSPORINE OPH EMUL 1 VIAL BOTH EYES SCH ×2 (09:53→21:52)
[2018-08-08] MEDS: FLUTICASONE 50 MCG NASAL SPRAY 16 GM BOTTLE BOTH NARES SCH ×2 (09:53→21:55)
[2018-08-08] MEDS: APIXABAN 5 MG TABLET PO SCH ×2 (09:54→21:49)
[2018-08-08] MEDS: DIGOXIN 0.125 MG TABLET PO SCH (12:18)
[2018-08-08] MEDS: tiZANidine 4 MG TABLET PO PRN (14:06)
[2018-08-08] MEDS: LIDOCAINE 5% PATCH TRANSDERM SCH (16:11)
[2018-08-09] MEDS: oxyCODONE/ACETAMINOPHEN 5-325 MG TABLET PO PRN ×2 (00:04→11:56)
[2018-08-09] MEDS: METOPROLOL TARTRATE 25 MG TABLET PO SCH ×3 (00:25→22:40)
[2018-08-09 04:22] LABS: Osmolality,Calculated 275.7 MOS/KG (273-304); Potassium 4.2 MMOL/L (3.5-5.1)
[2018-08-09 04:24] LABS: Basophils % 0.4 % (0.0-0.8); Eosinophils # 0.1 10*3/uL (0.0-0.87); Eosinophils % 1.1 % (0.00-10.9); Hematocrit 33.3 VOL% (42.0-52.0); Hemoglobin 10.1 GM/DL (14.0-18.0); Immature Granulocytes % 0.9 %; Immature Granulocytes Absolute 0.09 #; Lymphocytes # 0.8 10*3/uL (1.4-4.0); Lymphocytes % 7.8 % (21.2-54.2); Mean Corpuscular HGB Conc 30.3 GM/DL (32-36); Mean Corpuscular Hemoglobin 33 PG (27-34); Mean Corpuscular Volume 108.1 FL (87-102); Mean Platelet Volume 12.3 FL (9.6-12.0); Monocytes # 0.9 10*3/uL (0.11-0.8); Monocytes % 8.4 % (1.7-12.7); Neutrophils # 8.5 10*3/uL (1.4-7.4); Neutrophils % 81.4 % (38.7-73.9); Platelet Count 79 T/CUMM (130-400); Red Blood Count 3.08 MC/CUMM (3.8-5.5); Red Cell Distribution Width 20.3 % (9.3-17.3); White Blood Count 10.4 T/CUMM (4-12)
[2018-08-09 06:12] LABS: Anisocytosis 2+; Hypochromasia 1+; Microcytosis Slight
[2018-08-09 06:13] LABS: Ovalocytes Slight; Platelet Estimate Decreased; Polychromasia Slight
[2018-08-09] MEDS: MORPHINE 4 MG/1 ML VIAL IV PRN ×2 (07:49→14:13)
[2018-08-09] MEDS: PANTOPRAZOLE 40 MG TABLET PO SCH (09:34)
[2018-08-09] MEDS: sitaGLIPtin 25 MG TABLET PO SCH (09:34)
[2018-08-09] MEDS: PREGABALIN 100 MG CAPSULE PO SCH ×2 (09:36→22:40)
[2018-08-09] MEDS: APIXABAN 5 MG TABLET PO SCH ×2 (09:36→22:41)
[2018-08-09] MEDS: BUDESONIDE/FORMOTEROL 160-4.5 INHALER 6 GM INH SCH ×2 (09:37→22:43)
[2018-08-09] MEDS: FLUTICASONE 50 MCG NASAL SPRAY 16 GM BOTTLE BOTH NARES SCH ×2 (09:38→22:42)
[2018-08-09] MEDS: POLYETHYLENE GLYCOL POWDER 17 GM PACK PO SCH (09:41)
[2018-08-09] MEDS: cycloSPORINE OPH EMUL 1 VIAL BOTH EYES SCH ×2 (09:44→22:48)
[2018-08-09] MEDS: INSULIN REGULAR 100 UNIT/ML SUBCUT SCH ×4 (10:05→22:42)
[2018-08-09] MEDS: DIGOXIN 0.125 MG TABLET PO SCH (14:12)
[2018-08-09] MEDS: LIDOCAINE 5% PATCH TRANSDERM SCH (16:05)
[2018-08-09] MEDS: tiZANidine 4 MG TABLET PO PRN (22:40)
[2018-08-10] MEDS: oxyCODONE/ACETAMINOPHEN 5-325 MG TABLET PO PRN ×2 (06:37→16:11)
[2018-08-10] MEDS: INSULIN REGULAR 100 UNIT/ML SUBCUT SCH ×4 (08:06→21:19)
[2018-08-10] MEDS: sitaGLIPtin 25 MG TABLET PO SCH (08:45)
[2018-08-10] MEDS: PREGABALIN 100 MG CAPSULE PO SCH ×2 (08:45→21:18)
[2018-08-10] MEDS: PANTOPRAZOLE 40 MG TABLET PO SCH (08:45)
[2018-08-10] MEDS: POLYETHYLENE GLYCOL POWDER 17 GM PACK PO SCH (08:45)
[2018-08-10] MEDS: cycloSPORINE OPH EMUL 1 VIAL BOTH EYES SCH ×2 (08:46→21:24)
[2018-08-10] MEDS: APIXABAN 5 MG TABLET PO SCH ×2 (08:46→21:18)
[2018-08-10] MEDS: METOPROLOL TARTRATE 25 MG TABLET PO SCH ×2 (08:46→21:18)
[2018-08-10] MEDS: FLUTICASONE 50 MCG NASAL SPRAY 16 GM BOTTLE BOTH NARES SCH ×2 (08:47→21:19)
[2018-08-10] MEDS: BUDESONIDE/FORMOTEROL 160-4.5 INHALER 6 GM INH SCH ×2 (08:47→21:19)
[2018-08-10] MEDS: tiZANidine 4 MG TABLET PO PRN ×2 (08:50→21:22)
[2018-08-10] MEDS ORDERED: FUROSEMIDE 20 MG TABLET PO SCH (10:00)
[2018-08-10] MEDS: DIGOXIN 0.125 MG TABLET PO SCH (12:25)
[2018-08-10] MEDS: LIDOCAINE 5% PATCH TRANSDERM SCH (16:11)
[2018-08-11 05:08] LABS: Basophils % 0.3 % (0.0-0.8); Eosinophils # 0.1 10*3/uL (0.0-0.87); Eosinophils % 1.7 % (0.00-10.9); Hematocrit 28.5 VOL% (42.0-52.0); Hemoglobin 8.6 GM/DL (14.0-18.0); Immature Granulocytes % 0.8 %; Immature Granulocytes Absolute 0.06 #; Lymphocytes # 0.6 10*3/uL (1.4-4.0); Lymphocytes % 7.1 % (21.2-54.2); Mean Corpuscular HGB Conc 30.2 GM/DL (32-36); Mean Corpuscular Hemoglobin 33 PG (27-34); Mean Corpuscular Volume 107.5 FL (87-102); Mean Platelet Volume 13.1 FL (9.6-12.0); Monocytes # 0.6 10*3/uL (0.11-0.8); Monocytes % 7.1 % (1.7-12.7); Neutrophils # 6.5 10*3/uL (1.4-7.4); Platelet Count 56 T/CUMM (130-400); Red Blood Count 2.65 MC/CUMM (3.8-5.5); Red Cell Distribution Width 19.5 % (9.3-17.3); White Blood Count 7.9 T/CUMM (4-12)
[2018-08-11 05:27] LABS: Calcium 9.7 MG/DL (8.5-10.1); Osmolality,Calculated 279.3 MOS/KG (273-304)
[2018-08-11 05:32] LABS: Eosinophils 1 % (0-10); Lymphocytes 5 % (20-55); Segmented Neutrophils 87 % (50-85); Total Cells Counted 100
[2018-08-11 05:33] LABS: Hypochromasia 1+; Microcytosis Slight; Ovalocytes Slight; Platelet Estimate Decreased
[2018-08-11] MEDS: INSULIN REGULAR 100 UNIT/ML SUBCUT SCH ×4 (09:15→21:08)
[2018-08-11] MEDS: APIXABAN 5 MG TABLET PO SCH ×2 (09:53→21:08)
[2018-08-11] MEDS: sitaGLIPtin 25 MG TABLET PO SCH (09:53)
[2018-08-11] MEDS: METOPROLOL TARTRATE 25 MG TABLET PO SCH (09:54)
[2018-08-11] MEDS: FUROSEMIDE 40 MG TABLET PO SCH (09:54)
[2018-08-11] MEDS: PANTOPRAZOLE 40 MG TABLET PO SCH (09:55)
[2018-08-11] MEDS: POLYETHYLENE GLYCOL POWDER 17 GM PACK PO SCH (09:55)
[2018-08-11] MEDS: PREGABALIN 100 MG CAPSULE PO SCH ×2 (09:55→21:08)
[2018-08-11] MEDS: cycloSPORINE OPH EMUL 1 VIAL BOTH EYES SCH ×2 (09:56→21:10)
[2018-08-11] MEDS: BUDESONIDE/FORMOTEROL 160-4.5 INHALER 6 GM INH SCH ×2 (10:01→21:07)
[2018-08-11] MEDS: FLUTICASONE 50 MCG NASAL SPRAY 16 GM BOTTLE BOTH NARES SCH ×2 (10:02→21:07)
[2018-08-11] MEDS: oxyCODONE/ACETAMINOPHEN 5-325 MG TABLET PO PRN ×2 (10:10→22:48)
[2018-08-11] MEDS: DIGOXIN 0.125 MG TABLET PO SCH (12:55)
[2018-08-11] MEDS: LIDOCAINE 5% PATCH TRANSDERM SCH (16:50)
[2018-08-11] MEDS: tiZANidine 4 MG TABLET PO PRN (21:07)
[2018-08-11] MEDS: METOPROLOL TARTRATE 50 MG TABLET PO SCH (21:07)
[2018-08-12] MEDS ORDERED: SODIUM CHLORIDE 0.65% NASAL SPRAY 45 ML BOTTLE BOTH NARES PRN (07:14)
[2018-08-12] MEDS: INSULIN REGULAR 100 UNIT/ML SUBCUT SCH ×4 (09:02→21:12)
[2018-08-12] MEDS: sitaGLIPtin 25 MG TABLET PO SCH (09:29)
[2018-08-12] MEDS: FLUTICASONE 50 MCG NASAL SPRAY 16 GM BOTTLE BOTH NARES SCH ×2 (09:29→21:11)
[2018-08-12] MEDS: PREGABALIN 100 MG CAPSULE PO SCH ×2 (09:29→21:11)
[2018-08-12] MEDS: BUDESONIDE/FORMOTEROL 160-4.5 INHALER 6 GM INH SCH ×2 (09:29→21:11)
[2018-08-12] MEDS: PANTOPRAZOLE 40 MG TABLET PO SCH (09:29)
[2018-08-12] MEDS: FUROSEMIDE 40 MG TABLET PO SCH (09:29)
[2018-08-12] MEDS: METOPROLOL TARTRATE 50 MG TABLET PO SCH ×2 (09:30→21:11)
[2018-08-12] MEDS: POLYETHYLENE GLYCOL POWDER 17 GM PACK PO SCH (09:30)
[2018-08-12] MEDS: oxyCODONE/ACETAMINOPHEN 5-325 MG TABLET PO PRN ×2 (09:30→15:33)
[2018-08-12 10:12] LABS: Basophils % 0.4 % (0.0-0.8); Eosinophils # 0.1 10*3/uL (0.0-0.87); Eosinophils % 0.8 % (0.00-10.9); Hematocrit 33.4 VOL% (42.0-52.0); Hemoglobin 9.9 GM/DL (14.0-18.0); Immature Granulocytes % 0.8 %; Immature Granulocytes Absolute 0.07 #; Lymphocytes # 0.5 10*3/uL (1.4-4.0); Lymphocytes % 5.5 % (21.2-54.2); Mean Corpuscular HGB Conc 29.6 GM/DL (32-36); Mean Corpuscular Hemoglobin 32 PG (27-34); Mean Corpuscular Volume 108.4 FL (87-102); Mean Platelet Volume 12.7 FL (9.6-12.0); Monocytes # 0.6 10*3/uL (0.11-0.8); Monocytes % 6.7 % (1.7-12.7); Neutrophils # 7.8 10*3/uL (1.4-7.4); Neutrophils % 85.8 % (38.7-73.9); Platelet Count 69 T/CUMM (130-400); Red Blood Count 3.08 MC/CUMM (3.8-5.5); Red Cell Distribution Width 18.9 % (9.3-17.3); White Blood Count 9.1 T/CUMM (4-12)
[2018-08-12 10:34] LABS: Hypochromasia 1+; Platelet Estimate Decreased
[2018-08-12 10:35] LABS: Microcytosis Slight
[2018-08-12 10:38] LABS: Bilirubin,Total 0.9 MG/DL (0.2-1.0); Osmolality,Calculated 281.3 MOS/KG (273-304); Potassium 4.1 MMOL/L (3.5-5.1); Total Protein 5.8 G/DL (6.4-8.3)
[2018-08-12] MEDS: cycloSPORINE OPH EMUL 1 VIAL BOTH EYES SCH ×2 (10:45→21:13)
[2018-08-12] MEDS: DIGOXIN 0.125 MG TABLET PO SCH (12:52)
[2018-08-12] MEDS: LIDOCAINE 5% PATCH TRANSDERM SCH (15:35)
[2018-08-12] MEDS: tiZANidine 4 MG TABLET PO PRN (21:11)
[2018-08-13] MEDS: oxyCODONE/ACETAMINOPHEN 5-325 MG TABLET PO PRN ×2 (00:55→08:42)
[2018-08-13 04:26] LABS: Basophils # 0.1 10*3/uL (0.0-0.2); Basophils % 0.6 % (0.0-0.8); Eosinophils # 0.1 10*3/uL (0.0-0.87); Eosinophils % 1.3 % (0.00-10.9); Hemoglobin 8.6 GM/DL (14.0-18.0); Immature Granulocytes % 0.8 %; Immature Granulocytes Absolute 0.07 #; Lymphocytes # 0.6 10*3/uL (1.4-4.0); Mean Corpuscular HGB Conc 29.7 GM/DL (32-36); Mean Corpuscular Hemoglobin 32 PG (27-34); Mean Corpuscular Volume 107.8 FL (87-102); Mean Platelet Volume 13.1 FL (9.6-12.0); Monocytes # 0.6 10*3/uL (0.11-0.8); Monocytes % 6.5 % (1.7-12.7); Neutrophils # 7.2 10*3/uL (1.4-7.4); Neutrophils % 83.8 % (38.7-73.9); Platelet Count 65 T/CUMM (130-400); Red Blood Count 2.69 MC/CUMM (3.8-5.5); Red Cell Distribution Width 18.7 % (9.3-17.3); White Blood Count 8.6 T/CUMM (4-12)
[2018-08-13 04:49] LABS: Hypochromasia 1+; Ovalocytes Slight; Platelet Estimate Decreased
[2018-08-13 04:50] LABS: Microcytosis Slight
[2018-08-13 04:58] LABS: Albumin 1.8 G/DL (3.4-5.0); Bilirubin,Total 1.3 MG/DL (0.2-1.0); Calcium 9.7 MG/DL (8.5-10.1); Osmolality,Calculated 281.3 MOS/KG (273-304); Potassium 4.1 MMOL/L (3.5-5.1); Total Protein 5.5 G/DL (6.4-8.3)
[2018-08-13] MEDS: MAGNESIUM SULF RIDER 2 GM in PREMIX 1 EACH IV PRN (08:44)
[2018-08-13] MEDS: PREGABALIN 100 MG CAPSULE PO SCH ×2 (09:31→21:00)
[2018-08-13] MEDS: METOPROLOL TARTRATE 50 MG TABLET PO SCH ×2 (09:31→21:00)
[2018-08-13] MEDS: sitaGLIPtin 25 MG TABLET PO SCH (09:32)
[2018-08-13] MEDS: PANTOPRAZOLE 40 MG TABLET PO SCH (09:32)
[2018-08-13] MEDS: FUROSEMIDE 40 MG TABLET PO SCH (09:32)
[2018-08-13] MEDS: INSULIN REGULAR 100 UNIT/ML SUBCUT SCH ×4 (09:36→21:01)
[2018-08-13] MEDS: FLUTICASONE 50 MCG NASAL SPRAY 16 GM BOTTLE BOTH NARES SCH ×2 (09:55→21:01)
[2018-08-13] MEDS: BUDESONIDE/FORMOTEROL 160-4.5 INHALER 6 GM INH SCH ×2 (09:55→21:01)
[2018-08-13] MEDS: cycloSPORINE OPH EMUL 1 VIAL BOTH EYES SCH ×2 (09:56→21:00)
[2018-08-13] MEDS: POLYETHYLENE GLYCOL POWDER 17 GM PACK PO SCH (10:17)
[2018-08-13] MEDS: DIGOXIN 0.125 MG TABLET PO SCH (13:24)
[2018-08-13] MEDS: LIDOCAINE 5% PATCH TRANSDERM SCH (16:05)
[2018-08-13] MEDS: tiZANidine 4 MG TABLET PO PRN (21:00)
[2018-08-14 04:24] LABS: Basophils % 0.5 % (0.0-0.8); Eosinophils # 0.1 10*3/uL (0.0-0.87); Eosinophils % 1.2 % (0.00-10.9); Hematocrit 30.3 VOL% (42.0-52.0); Hemoglobin 9.2 GM/DL (14.0-18.0); Immature Granulocytes % 0.5 %; Immature Granulocytes Absolute 0.04 #; Lymphocytes # 0.7 10*3/uL (1.4-4.0); Lymphocytes % 7.7 % (21.2-54.2); Mean Corpuscular HGB Conc 30.4 GM/DL (32-36); Mean Corpuscular Hemoglobin 32 PG (27-34); Mean Corpuscular Volume 105.2 FL (87-102); Mean Platelet Volume 13.6 FL (9.6-12.0); Monocytes # 0.5 10*3/uL (0.11-0.8); Monocytes % 5.7 % (1.7-12.7); Neutrophils # 7.3 10*3/uL (1.4-7.4); Neutrophils % 84.4 % (38.7-73.9); Platelet Count 66 T/CUMM (130-400); Red Blood Count 2.88 MC/CUMM (3.8-5.5); Red Cell Distribution Width 18.5 % (9.3-17.3); White Blood Count 8.6 T/CUMM (4-12)
[2018-08-14] MEDS ORDERED: oxyCODONE/ACETAMINOPHEN 5-325 MG TABLET PO PRN (04:43)
[2018-08-14 04:56] LABS: Albumin 2.2 G/DL (3.4-5.0); Bilirubin,Total 0.9 MG/DL (0.2-1.0); Calcium 9.7 MG/DL (8.5-10.1); Osmolality,Calculated 283.1 MOS/KG (273-304); Potassium 3.9 MMOL/L (3.5-5.1); Total Protein 5.6 G/DL (6.4-8.3)
[2018-08-14 05:04] LABS: Anisocytosis 1+; Lymphocytes 5 % (20-55); Segmented Neutrophils 89 % (50-85); Total Cells Counted 100
[2018-08-14 05:05] LABS: Microcytosis Slight; Ovalocytes Slight
[2018-08-14 05:07] LABS: Spherocytes Slight; Stomatocytes Slight
[2018-08-14 05:08] LABS: Platelet Estimate Decreased
[2018-08-14 08:06] VITALS: BP 127/77
[2018-08-14] MEDS: sitaGLIPtin 25 MG TABLET PO SCH (08:56)
[2018-08-14] MEDS: FUROSEMIDE 40 MG TABLET PO SCH (08:56)
[2018-08-14] MEDS: METOPROLOL TARTRATE 50 MG TABLET PO SCH (08:56)
[2018-08-14] MEDS: PREGABALIN 100 MG CAPSULE PO SCH (08:57)
[2018-08-14] MEDS: PANTOPRAZOLE 40 MG TABLET PO SCH (08:57)
[2018-08-14] MEDS: POLYETHYLENE GLYCOL POWDER 17 GM PACK PO SCH (08:58)
[2018-08-14] MEDS: FLUTICASONE 50 MCG NASAL SPRAY 16 GM BOTTLE BOTH NARES SCH (08:58)
[2018-08-14] MEDS: BUDESONIDE/FORMOTEROL 160-4.5 INHALER 6 GM INH SCH (08:58)
[2018-08-14] MEDS: cycloSPORINE OPH EMUL 1 VIAL BOTH EYES SCH (08:59)
[2018-08-14] MEDS: INSULIN REGULAR 100 UNIT/ML SUBCUT SCH (09:50)
== END 2018-08-14 11:23 | disposition home health service (06) | DRG 166 ==
LOC: EDUNIT# → N.ED 15:10 → N.EDINP 15:10 → SUATTDRO 18:20 → N.TELES 07-30 13:43 → SUATTDRO 07-31 10:19 → N.ICU 07-31 11:53 → N.TELES 08-05 18:21
PROVIDERS: ADMIT Internal Medicine; ATTEND Internal Medicine

== ENCOUNTER 2018-09-13 22:00 | Observation (INO) ==
[2018-09-13] MEDS ORDERED: ALBUTEROL 2.5 MG/3 ML NEB RESP TX STA (22:18)
[2018-09-13] MEDS ORDERED: ALBUTEROL/IPRATROPIUM 3 ML NEB RESP TX STA (22:18)
[2018-09-13] MEDS ORDERED: NITROGLYCERIN 2% OINT 1 INCH/GM PACK TOP STA (22:18)
[2018-09-13] MEDS ORDERED: methylPREDNISolone SOD SUC 125 MG/2 ML VIAL IV STA (22:24)
[2018-09-13] MEDS ORDERED: FUROSEMIDE 40 MG/4 ML VIAL IV STA (22:27)
[2018-09-13 22:34] LABS: Basophils % 0.4 % (0.0-0.8); Eosinophils % 0.2 % (0.00-10.9); Hematocrit 38.2 VOL% (42.0-52.0); Hemoglobin 11.7 GM/DL (14.0-18.0); Immature Granulocytes % 0.6 %; Immature Granulocytes Absolute 0.07 #; Lymphocytes # 0.8 10*3/uL (1.4-4.0); Lymphocytes % 6.9 % (21.2-54.2); Mean Corpuscular HGB Conc 30.6 GM/DL (32-36); Mean Corpuscular Volume 104.4 FL (87-102); Mean Platelet Volume 12.7 FL (9.6-12.0); Monocytes % 5.8 % (1.7-12.7); Neutrophils % 86.1 % (38.7-73.9); Red Blood Count 3.66 MC/CUMM (3.8-5.5); Red Cell Distribution Width 17.1 % (9.3-17.3)
[2018-09-13 22:39] LABS: Platelet Count 71 T/CUMM (130-400)
[2018-09-13 22:44] LABS: INR 1.1
[2018-09-13 23:01] LABS: Alanine Aminotransferase 24 U/L (16-61); Albumin 3.5 G/DL (3.4-5.0); Alkaline Phosphatase 169 U/L (45-117); Aspartate Amino Transferase 20 U/L (0-37); Blood Urea Nitrogen 17 MG/DL (7-18); Calcium 9.5 MG/DL (8.5-10.1); Glucose 109 MG/DL (74-106); Osmolality,Calculated 288.8 MOS/KG (273-304); Total Protein 6.4 G/DL (6.4-8.3)
[2018-09-13 23:02] LABS: Troponin I 0.073 NG/ML (0.00-0.045)
[2018-09-13] MEDS ORDERED: VANCOMYCIN (NICU) 1,000 MG in SYRINGE 1 EACH IV STA (23:27)
[2018-09-13] MEDS ORDERED: LEVOFLOXACIN INJ 500 MG in PREMIX 1 EACH IV STA (23:28)
[2018-09-14] MEDS ORDERED: MAGNESIUM SULF RIDER 4 GM in PREMIX 1 EACH IV PRN (00:02)
[2018-09-14] MEDS ORDERED: ALBUTEROL 2.5 MG/3 ML NEB RESP TX PRN (00:02)
[2018-09-14] MEDS ORDERED: MAGNESIUM SULF RIDER 2 GM in PREMIX 1 EACH IV PRN (00:02)
[2018-09-14] MEDS ORDERED: VANCOMYCIN INJ 1,000 MG in SODIUM CHLORIDE 0.9% 250 ML IV STA (00:15)
[2018-09-14 00:21] LABS: Hypochromasia 1+; Ovalocytes 1+; Platelet Estimate Decreased
[2018-09-14 00:44] LABS: Barbiturates Screen,Urine Negative (Negative); Benzodiazepines Screen,Urine Negative (Negative); Cannabinoid Screen,Urine Negative (Negative); Opiate Screen,Urine Negative (Negative); Phencyclidine Screen,Urine Negative (Negative)
[2018-09-14] MEDS: ALBUTEROL/IPRATROPIUM 3 ML NEB RESP TX SCH ×4 (00:50→19:14)
[2018-09-14] MEDS: ONDANSETRON 4 MG/2 ML VIAL IV PRN ×5 (02:08→22:16)
[2018-09-14] MEDS: methylPREDNISolone SOD SUC 40 MG/1 ML VIAL IV SCH ×4 (04:40→22:19)
[2018-09-14] MEDS: AZTREONAM 2,000 MG in SODIUM CHLORIDE 0.9% 100 ML IV SCH ×4 (04:40→22:19)
[2018-09-14 07:26] LABS: Basophils % 0.1 % (0.0-0.8); Eosinophils % 0.1 % (0.00-10.9); Hematocrit 39.2 VOL% (42.0-52.0); Hemoglobin 12.2 GM/DL (14.0-18.0); Immature Granulocytes % 0.5 %; Immature Granulocytes Absolute 0.04 #; Lymphocytes # 0.3 10*3/uL (1.4-4.0); Lymphocytes % 3.1 % (21.2-54.2); Mean Corpuscular HGB Conc 31.1 GM/DL (32-36); Mean Corpuscular Volume 102.3 FL (87-102); Mean Platelet Volume 13.5 FL (9.6-12.0); Monocytes % 0.6 % (1.7-12.7); Neutrophils % 95.6 % (38.7-73.9); Red Blood Count 3.83 MC/CUMM (3.8-5.5); Red Cell Distribution Width 16.9 % (9.3-17.3)
[2018-09-14 07:28] LABS: Platelet Count 73 T/CUMM (130-400)
[2018-09-14 07:45] LABS: Albumin 3.5 G/DL (3.4-5.0); Bilirubin,Total 1.3 MG/DL (0.2-1.0); Calcium 9.7 MG/DL (8.5-10.1); Osmolality,Calculated 282.4 MOS/KG (273-304); Risk Ratio 2.31; Total Protein 6.8 G/DL (6.4-8.3); VLDL CHOLESTEROL 15.6 MG/DL
[2018-09-14 08:03] LABS: Hypochromasia 1+; Lymphocytes 2 % (20-55); Ovalocytes Slight; Platelet Estimate Decreased; Segmented Neutrophils 96 % (50-85); Total Cells Counted 100
[2018-09-14] MEDS: guaiFENesin/DM ER 600-30 MG TABLET PO SCH ×2 (08:15→20:18)
[2018-09-14] MEDS: FUROSEMIDE 40 MG/4 ML VIAL IV SCH ×2 (08:15→16:38)
[2018-09-14] MEDS: PANTOPRAZOLE 40 MG TABLET PO SCH (08:15)
[2018-09-14] MEDS ORDERED: tiZANidine 4 MG TABLET PO PRN (09:37)
[2018-09-14] MEDS ORDERED: NITROGLYCERIN SL 0.4 MG TABLET SL PRN (09:37)
[2018-09-14] MEDS ORDERED: SODIUM CHLORIDE 0.65% NASAL SPRAY 45 ML BOTTLE BOTH NARES PRN (09:37)
[2018-09-14] MEDS: LIDOCAINE 5% PATCH TRANSDERM SCH (10:16)
[2018-09-14] MEDS ORDERED: DIGOXIN 0.125 MG TABLET PO SCH (13:00)
[2018-09-14] MEDS: cycloSPORINE OPH EMUL 1 VIAL BOTH EYES SCH (20:18)
[2018-09-14] MEDS: PREGABALIN 100 MG CAPSULE PO SCH (20:18)
[2018-09-14] MEDS: METOPROLOL TARTRATE 50 MG TABLET PO SCH (20:18)
[2018-09-14] MEDS ORDERED: ATORVASTATIN 40 MG TABLET PO SCH (21:00)
[2018-09-15] MEDS: ALBUTEROL/IPRATROPIUM 3 ML NEB RESP TX SCH ×2 (00:03→07:24)
[2018-09-15] MEDS ORDERED: LEVOFLOXACIN INJ 750 MG in PREMIX 1 EACH IV SCH (01:00)
[2018-09-15] MEDS: AZTREONAM 2,000 MG in SODIUM CHLORIDE 0.9% 100 ML IV SCH (04:08)
[2018-09-15] MEDS: methylPREDNISolone SOD SUC 40 MG/1 ML VIAL IV SCH (04:09)
[2018-09-15 08:35] VITALS: BP 104/55
[2018-09-15] MEDS: LIDOCAINE 5% PATCH TRANSDERM SCH (09:00)
[2018-09-15] MEDS ORDERED: POLYETHYLENE GLYCOL POWDER 17 GM PACK PO SCH (09:00)
[2018-09-15] MEDS ORDERED: sitaGLIPtin 25 MG TABLET PO SCH (09:00)
[2018-09-15] MEDS: FUROSEMIDE 40 MG/4 ML VIAL IV SCH (09:00)
[2018-09-15] MEDS: PANTOPRAZOLE 40 MG TABLET PO SCH (09:01)
[2018-09-15] MEDS: METOPROLOL TARTRATE 50 MG TABLET PO SCH (09:01)
[2018-09-15] MEDS: cycloSPORINE OPH EMUL 1 VIAL BOTH EYES SCH (09:01)
[2018-09-15] MEDS: PREGABALIN 100 MG CAPSULE PO SCH (09:01)
[2018-09-15] MEDS: guaiFENesin/DM ER 600-30 MG TABLET PO SCH (09:01)
== END 2018-09-15 11:00 | disposition home or self-care (01) ==
LOC: EDUNIT# → EDBD → N.ED 22:00 → INTOOBSV 09-14 00:06 → N.EDINP 09-14 00:06 → N.5E 09-14 00:51
PROVIDERS: ADMIT Hospitalist; ATTEND Hospitalist

== ENCOUNTER 2021-04-01 11:19 | Inpatient (IN) ==
[2021-04-01] MEDS ORDERED: NITROGLYCERIN SL 0.4 MG TABLET SL PRN ×2 (11:54→13:31)
[2021-04-01] MEDS ORDERED: ASPIRIN 325 MG TABLET PO STA (11:54)
[2021-04-01 12:05] LABS: Basophils % 0.4 % (0.0-0.8); Eosinophils # 0.1 10*3/uL (0.0-0.87); Hematocrit 37.2 VOL% (42.0-52.0); Hemoglobin 12.7 GM/DL (14.0-18.0); Immature Granulocytes % 0.5 %; Immature Granulocytes Absolute 0.05 #; Lymphocytes # 1.8 10*3/uL (1.4-4.0); Lymphocytes % 19.4 % (21.2-54.2); Mean Corpuscular HGB Conc 34.1 GM/DL (32-36); Mean Corpuscular Volume 93.9 FL (87-102); Mean Platelet Volume 11.6 FL (9.6-12.0); Monocytes % 5.6 % (1.7-12.7); Neutrophils % 73.1 % (38.7-73.9); Platelet Count 157 T/CUMM (130-400); Red Blood Count 3.96 MC/CUMM (3.8-5.5); Red Cell Distribution Width 12.9 % (9.3-17.3); White Blood Count 9.3 T/CUMM (4-12)
[2021-04-01 12:20] LABS: Barbiturates Screen,Urine Negative (Negative); Benzodiazepines Screen,Urine Negative (Negative); Cannabinoid Screen,Urine Negative (Negative); Opiate Screen,Urine Negative (Negative); Phencyclidine Screen,Urine Negative (Negative)
[2021-04-01 12:26] LABS: Albumin 4.1 G/DL (3.4-5.0); Bilirubin,Total 0.4 MG/DL (0.20-1.00); Calcium 10.3 MG/DL (8.5-10.1); Osmolality,Calculated 276.7 MOS/KG (273-304); Potassium 3.6 MMOL/L (3.5-5.1); Total Protein 6.8 G/DL (6.4-8.2)
[2021-04-01] MEDS: PANTOPRAZOLE 40 MG TABLET PO SCH (13:20)
[2021-04-01] MEDS ORDERED: GLUCAGON 1 MG VIAL IM PRN (13:29)
[2021-04-01] MEDS ORDERED: ACETAMINOPHEN 325 MG TABLET PO PRN (13:29)
[2021-04-01] MEDS ORDERED: BISACODYL 5 MG TABLET PO PRN (13:29)
[2021-04-01] MEDS ORDERED: ONDANSETRON 4 MG/2 ML VIAL IV PRN (13:29)
[2021-04-01] MEDS ORDERED: ENOXAPARIN 100 MG/ML SYRINGE SUBCUT ONE (13:31)
[2021-04-01] MEDS ORDERED: DEXTROSE 50% 25 GM/50 ML SYRINGE IV PRN ×2 (13:32→13:38)
[2021-04-01] MEDS: INSULIN LISPRO 100 UNIT/ML SUBCUT SCH ×2 (17:53→21:23)
[2021-04-01] MEDS: ALBUTEROL/IPRATROPIUM 3 ML NEB RESP TX SCH (20:14)
[2021-04-01] MEDS: carvediloL 3.125 MG TABLET PO SCH (21:23)
[2021-04-01] MEDS: ATORVASTATIN 40 MG TABLET PO SCH (21:23)
[2021-04-02] MEDS: ALBUTEROL/IPRATROPIUM 3 ML NEB RESP TX SCH ×4 (01:03→20:10)
[2021-04-02 05:29] LABS: Basophils % 0.4 % (0.0-0.8); Eosinophils # 0.1 10*3/uL (0.0-0.87); Eosinophils % 1.1 % (0.00-10.9); Hematocrit 36.3 VOL% (42.0-52.0); Hemoglobin 12.4 GM/DL (14.0-18.0); Immature Granulocytes % 0.4 %; Immature Granulocytes Absolute 0.03 #; Lymphocytes # 1.4 10*3/uL (1.4-4.0); Lymphocytes % 16.1 % (21.2-54.2); Mean Corpuscular HGB Conc 34.2 GM/DL (32-36); Mean Corpuscular Volume 95.3 FL (87-102); Mean Platelet Volume 11.4 FL (9.6-12.0); Monocytes % 6.1 % (1.7-12.7); Neutrophils % 75.9 % (38.7-73.9); Platelet Count 140 T/CUMM (130-400); Red Blood Count 3.81 MC/CUMM (3.8-5.5); Red Cell Distribution Width 13.1 % (9.3-17.3); White Blood Count 8.6 T/CUMM (4-12)
[2021-04-02 05:43] LABS: Calcium 10.1 MG/DL (8.5-10.1); Osmolality,Calculated 280.4 MOS/KG (273-304); Potassium 3.8 MMOL/L (3.5-5.1); Risk Ratio 5.17; VLDL Cholesterol 57.8 MG/DL
[2021-04-02] MEDS: PANTOPRAZOLE 40 MG TABLET PO SCH (08:49)
[2021-04-02] MEDS: carvediloL 3.125 MG TABLET PO SCH ×2 (08:50→20:46)
[2021-04-02] MEDS: ASPIRIN EC 325 MG TABLET PO SCH (08:50)
[2021-04-02] MEDS ORDERED: SERTRALINE 50 MG TABLET PO SCH (09:00)
[2021-04-02] MEDS ORDERED: ENOXAPARIN 100 MG/ML SYRINGE SUBCUT ONE (09:00)
[2021-04-02] MEDS: ISOSORBIDE MONONITRATE 30 MG TABLET PO SCH (09:50)
[2021-04-02] MEDS: LOSARTAN 50 MG TABLET PO SCH (09:50)
[2021-04-02] MEDS: SPIRONOLACTONE 25 MG TABLET PO SCH (09:50)
[2021-04-02] MEDS: INSULIN LISPRO 100 UNIT/ML SUBCUT SCH ×4 (10:33→20:46)
[2021-04-02] MEDS: ATORVASTATIN 40 MG TABLET PO SCH (20:46)
[2021-04-02] MEDS: ENOXAPARIN 100 MG/ML SYRINGE SUBCUT SCH (20:46)
[2021-04-02] MEDS: SERTRALINE 100 MG TABLET PO SCH (20:46)
[2021-04-03] MEDS: ALBUTEROL/IPRATROPIUM 3 ML NEB RESP TX SCH ×5 (01:05→20:45)
[2021-04-03 05:30] LABS: Basophils % 0.6 % (0.0-0.8); Eosinophils # 0.1 10*3/uL (0.0-0.87); Eosinophils % 1.3 % (0.00-10.9); Hematocrit 35.9 VOL% (42.0-52.0); Hemoglobin 12.3 GM/DL (14.0-18.0); Immature Granulocytes % 0.6 %; Immature Granulocytes Absolute 0.04 #; Lymphocytes # 1.5 10*3/uL (1.4-4.0); Mean Corpuscular HGB Conc 34.3 GM/DL (32-36); Mean Corpuscular Volume 94.5 FL (87-102); Mean Platelet Volume 11.4 FL (9.6-12.0); Monocytes % 7.6 % (1.7-12.7); Neutrophils % 67.9 % (38.7-73.9); Platelet Count 149 T/CUMM (130-400); Red Cell Distribution Width 13.1 % (9.3-17.3); White Blood Count 6.7 T/CUMM (4-12)
[2021-04-03 05:56] LABS: Calcium 10.4 MG/DL (8.5-10.1); Osmolality,Calculated 282.3 MOS/KG (273-304); Potassium 3.8 MMOL/L (3.5-5.1)
[2021-04-03 06:06] LABS: Platelet Estimate Adequate
[2021-04-03 06:07] LABS: Anisocytosis 1+
[2021-04-03] MEDS ORDERED: SERTRALINE 50 MG TABLET PO SCH (09:00)
[2021-04-03] MEDS: INSULIN LISPRO 100 UNIT/ML SUBCUT SCH ×4 (09:05→22:07)
[2021-04-03] MEDS: ENOXAPARIN 100 MG/ML SYRINGE SUBCUT SCH (10:06)
[2021-04-03] MEDS: ISOSORBIDE MONONITRATE 30 MG TABLET PO SCH (10:06)
[2021-04-03] MEDS: LOSARTAN 50 MG TABLET PO SCH (10:06)
[2021-04-03] MEDS: ASPIRIN EC 325 MG TABLET PO SCH (10:06)
[2021-04-03] MEDS: PANTOPRAZOLE 40 MG TABLET PO SCH (10:06)
[2021-04-03] MEDS: SPIRONOLACTONE 25 MG TABLET PO SCH (10:07)
[2021-04-03] MEDS: carvediloL 3.125 MG TABLET PO SCH ×2 (10:07→22:07)
[2021-04-03] MEDS ORDERED: diphenhydrAMINE CAP 50 MG CAPSULE PO ONE (10:19)
[2021-04-03] MEDS ORDERED: DIAZEPAM 5 MG TABLET PO ONE (10:19)
[2021-04-03] MEDS: SODIUM CHLORIDE 0.45% 1,000 ML IV SCH (11:25)
[2021-04-03] MEDS ORDERED: LIDOCAINE 1% 20 ML VIAL ONE (15:07)
[2021-04-03] MEDS ORDERED: HEPARIN/NACL 0.9% 2 UNITS/ML 2,000 UNIT/1,000 ML BAG IV ONE (15:07)
[2021-04-03] MEDS ORDERED: VERAPAMIL 5 MG/2 ML VIAL ONE (15:17)
[2021-04-03] MEDS ORDERED: NITROGLYCERIN DRIP 50 MG/250 ML BOTTLE IV ONE (15:17)
[2021-04-03] MEDS ORDERED: fentaNYL 100 MCG/2 ML VIAL ONE (15:18)
[2021-04-03] MEDS ORDERED: MIDAZOLAM 2 MG/2 ML VIAL ONE (15:18)
[2021-04-03] MEDS ORDERED: HEPARIN 5,000 UNIT/1 ML VIAL ONE (15:32)
[2021-04-03] MEDS ORDERED: GLUCAGON 1 MG VIAL IM PRN (15:48)
[2021-04-03] MEDS ORDERED: DEXTROSE 50% 25 GM/50 ML SYRINGE IV PRN (15:51)
[2021-04-03] MEDS: ATORVASTATIN 40 MG TABLET PO SCH (22:08)
[2021-04-03] MEDS: SERTRALINE 100 MG TABLET PO SCH (22:08)
[2021-04-03] MEDS: RANOLAZINE 500 MG TABLET PO SCH (22:08)
[2021-04-04] MEDS: ALBUTEROL/IPRATROPIUM 3 ML NEB RESP TX SCH ×2 (00:58→07:01)
[2021-04-04 04:48] LABS: Basophils % 0.4 % (0.0-0.8); Eosinophils # 0.1 10*3/uL (0.0-0.87); Eosinophils % 1.2 % (0.00-10.9); Hematocrit 38.7 VOL% (42.0-52.0); Hemoglobin 13.2 GM/DL (14.0-18.0); Immature Granulocytes % 0.2 %; Immature Granulocytes Absolute 0.02 #; Lymphocytes # 1.3 10*3/uL (1.4-4.0); Lymphocytes % 16.4 % (21.2-54.2); Mean Corpuscular HGB Conc 34.1 GM/DL (32-36); Mean Corpuscular Volume 95.8 FL (87-102); Mean Platelet Volume 11.3 FL (9.6-12.0); Monocytes % 6.4 % (1.7-12.7); Neutrophils % 75.4 % (38.7-73.9); Platelet Count 146 T/CUMM (130-400); Red Blood Count 4.04 MC/CUMM (3.8-5.5); White Blood Count 8.2 T/CUMM (4-12)
[2021-04-04 05:03] LABS: Osmolality,Calculated 277.5 MOS/KG (273-304)
[2021-04-04] MEDS ORDERED: ISOSORBIDE MONONITRATE 60 MG TABLET PO SCH (09:00)
[2021-04-04] MEDS: RANOLAZINE 500 MG TABLET PO SCH (10:02)
[2021-04-04] MEDS: PANTOPRAZOLE 40 MG TABLET PO SCH (10:02)
[2021-04-04] MEDS: SPIRONOLACTONE 25 MG TABLET PO SCH (10:02)
[2021-04-04] MEDS: carvediloL 3.125 MG TABLET PO SCH (10:02)
[2021-04-04] MEDS: SODIUM CHLORIDE 0.45% 1,000 ML IV SCH ×3 (10:03→10:16)
[2021-04-04] MEDS: INSULIN LISPRO 100 UNIT/ML SUBCUT SCH (10:03)
[2021-04-04] MEDS: LOSARTAN 50 MG TABLET PO SCH (10:03)
[2021-04-04 10:13] VITALS: BP 105/57
== END 2021-04-04 11:15 | disposition home or self-care (01) | DRG 287 ==
LOC: EDUNIT# → EDBD → N.ED 11:19 → SUATTDRO 13:29 → N.EDINP 13:29 → N.TELES 15:15
PROVIDERS: ADMIT Internal Medicine; ATTEND Internal Medicine Geriatric Medicine
PROC: CLCCHCL (ICD-10-PCS; 2021-04-03 16:15)

== ENCOUNTER 2021-05-16 03:07 | Inpatient (IN) ==
[2021-05-16] MEDS ORDERED: ONDANSETRON 4 MG/2 ML VIAL ONE ×2 (03:22→03:40)
[2021-05-16] MEDS ORDERED: MORPHINE 2 MG/1 ML SYRINGE ONE (03:23)
[2021-05-16] MEDS ORDERED: DILTIAZEM 25 MG/5 ML VIAL IV ONE (03:23)
[2021-05-16] MEDS ORDERED: ASPIRIN 325 MG TABLET ONE (03:23)
[2021-05-16] MEDS ORDERED: methylPREDNISolone SOD SUC 125 MG/2 ML VIAL ONE (03:34)
[2021-05-16] MEDS ORDERED: MORPHINE 2 MG/1 ML SYRINGE IV STA (03:39)
[2021-05-16] MEDS ORDERED: methylPREDNISolone SOD SUC 125 MG/2 ML VIAL IV STA (03:39)
[2021-05-16] MEDS ORDERED: DILTIAZEM 50 MG/10 ML VIAL IV STA (03:39)
[2021-05-16] MEDS ORDERED: LEVALBUTEROL 1.25 MG/3 ML NEB RESP TX STA (03:39)
[2021-05-16] MEDS ORDERED: NITROGLYCERIN SL 0.4 MG TABLET SL STA (03:41)
[2021-05-16] MEDS ORDERED: NITROGLYCERIN SL 0.4 MG TABLET SL PRN ×2 (03:41→05:37)
[2021-05-16] MEDS ORDERED: ONDANSETRON 4 MG/2 ML VIAL IV STA ×2 (03:49→03:55)
[2021-05-16] MEDS ORDERED: ASPIRIN EC 325 MG TABLET PO STA (03:49)
[2021-05-16 03:50] LABS: Basophils # 0.1 10*3/uL (0.0-0.2); Basophils % 0.4 % (0.0-0.8); Eosinophils % 0.1 % (0.00-10.9); Hematocrit 46.2 VOL% (42.0-52.0); Hemoglobin 14.8 GM/DL (14.0-18.0); Immature Granulocytes Absolute 0.53 #; Lymphocytes # 1.6 10*3/uL (1.4-4.0); Mean Corpuscular Volume 98.7 FL (87-102); Mean Platelet Volume 11.4 FL (9.6-12.0); Monocytes % 5.8 % (1.7-12.7); Neutrophils % 85.7 % (38.7-73.9); Platelet Count 237 T/CUMM (130-400); Red Blood Count 4.68 MC/CUMM (3.8-5.5); White Blood Count 26.6 T/CUMM (4-12)
[2021-05-16 04:08] LABS: Band Neutrophils 1 % (0-10); Lymphocytes 8 % (20-55); Platelet Estimate Adequate; Segmented Neutrophils 86 % (50-85); Total Cells Counted 100
[2021-05-16 04:33] LABS: Alanine Aminotransferase 72 U/L (16-61); Albumin 3.8 G/DL (3.4-5.0); Alkaline Phosphatase 91 U/L (45-117); Aspartate Amino Transferase 62 U/L (0-37); Barbiturates Screen,Urine Negative (Negative); Benzodiazepines Screen,Urine Negative (Negative); Blood Urea Nitrogen 21 MG/DL (7-18); Cannabinoid Screen,Urine Negative (Negative); Carbon Dioxide 23 MMOL/L (21-32); Estimated Glom Filtration Rate 45 ML/MIN; Glucose 388 MG/DL (74-106); Opiate Screen,Urine Negative (Negative); Osmolality,Calculated 286.2 MOS/KG (273-304); Phencyclidine Screen,Urine Negative (Negative); Potassium 4.5 MMOL/L (3.5-5.1); Sodium 134 MMOL/L (136-145); Total Protein 7.5 G/DL (6.4-8.2)
[2021-05-16 04:37] LABS: High Sensitive Troponin I* 417.9 ng/L (0-78)
[2021-05-16] MEDS ORDERED: ENOXAPARIN 100 MG/ML SYRINGE SUBCUT STA (05:03)
[2021-05-16] MEDS ORDERED: ENOXAPARIN 120 MG/0.8 ML SYRINGE SUBCUT STA (05:05)
[2021-05-16] MEDS ORDERED: INSULIN REGULAR 100 UNIT/ML SUBCUT STA ×2 (05:05→05:06)
[2021-05-16] MEDS ORDERED: SODIUM CHLORIDE 0.9% 1,000 ML IV STA (05:06)
[2021-05-16] MEDS ORDERED: cefTRIAXone 1,000 MG in SODIUM CHLORIDE 0.9% 100 ML IV STA (05:10)
[2021-05-16] MEDS ORDERED: DEXTROSE 50% 25 GM/50 ML SYRINGE IV PRN (05:33)
[2021-05-16] MEDS ORDERED: ONDANSETRON 4 MG/2 ML VIAL IV PRN (05:33)
[2021-05-16] MEDS ORDERED: GLUCAGON 1 MG VIAL IM PRN (05:33)
[2021-05-16] MEDS ORDERED: MORPHINE 2 MG/1 ML SYRINGE IV PRN (05:33)
[2021-05-16] MEDS: LACTATED RINGERS 1,000 ML IV SCH (07:45)
[2021-05-16] MEDS: cefTRIAXone 2,000 MG in SODIUM CHLORIDE 0.9% 100 ML IV SCH (07:46)
[2021-05-16] MEDS: methylPREDNISolone SOD SUC 40 MG/1 ML VIAL IV SCH ×3 (07:49→22:23)
[2021-05-16 08:00] LABS: Thyroid Stimulating Hormone 1.84 uIU/ml (0.358-3.74)
[2021-05-16] MEDS ORDERED: FUROSEMIDE 40 MG TABLET PO SCH (08:00)
[2021-05-16] MEDS ORDERED: FUROSEMIDE 40 MG/4 ML VIAL IV SCH (08:00)
[2021-05-16] MEDS ORDERED: MAGNESIUM SULF RIDER 2 GM/50 ML PREMIX IV ONE (08:14)
[2021-05-16] MEDS ORDERED: PANTOPRAZOLE 40 MG TABLET PO SCH (09:00)
[2021-05-16] MEDS ORDERED: METOPROLOL TARTRATE 25 MG TABLET PO SCH (09:00)
[2021-05-16] MEDS ORDERED: SPIRONOLACTONE 25 MG TABLET PO SCH (09:00)
[2021-05-16] MEDS: ASPIRIN EC 81 MG TABLET PO SCH (12:00)
[2021-05-16] MEDS: FUROSEMIDE 40 MG/4 ML VIAL IV SCH (12:01)
[2021-05-16] MEDS: CLOPIDOGREL 75 MG TABLET PO SCH (12:01)
[2021-05-16] MEDS: AZITHROMYCIN 250 MG TABLET PO SCH (12:17)
[2021-05-16 12:19] LABS: Hepatitis B Core IgM Quant 0.15 Index; Hepatitis B Surface Ag Quant < 0.10 Index; Hepatitis B Surface Ag Result Non-Reactive (NonReactive); Hepatitis C Virus Ab Quant < 0.02 Index; Hepatitis C Virus Ab Result Non-Reactive (NonReactive)
[2021-05-16] MEDS: hydrALAZINE 25 MG TABLET PO SCH ×2 (16:26→22:23)
[2021-05-16] MEDS: DILTIAZEM 30 MG TABLET PO SCH ×2 (16:26→22:23)
[2021-05-16] MEDS: PANTOPRAZOLE 40 MG TABLET PO SCH (16:26)
[2021-05-16] MEDS: sitaGLIPtin 25 MG TABLET PO SCH (16:27)
[2021-05-16] MEDS: cycloSPORINE OPH EMUL 1 VIAL BOTH EYES SCH ×2 (17:10→22:26)
[2021-05-16] MEDS ORDERED: PNEUMOCOCCAL VACCINE (23 VALENT) 0.5 ML VIAL IM ONE ×2 (17:25→20:00)
[2021-05-16] MEDS: carvediloL 3.125 MG TABLET PO SCH (22:23)
[2021-05-16] MEDS: GABAPENTIN 300 MG CAPSULE PO SCH (22:23)
[2021-05-17 03:23] LABS: Basophils % 0.1 % (0.0-0.8); Hematocrit 37.5 VOL% (42.0-52.0); Hemoglobin 12.7 GM/DL (14.0-18.0); Immature Granulocytes % 0.9 %; Immature Granulocytes Absolute 0.15 #; Lymphocytes % 6.2 % (21.2-54.2); Mean Corpuscular HGB Conc 33.9 GM/DL (32-36); Mean Corpuscular Volume 95.7 FL (87-102); Mean Platelet Volume 11.3 FL (9.6-12.0); Monocytes % 4.8 % (1.7-12.7); Platelet Count 142 T/CUMM (130-400); Red Blood Count 3.92 MC/CUMM (3.8-5.5); Red Cell Distribution Width 13.3 % (9.3-17.3); White Blood Count 16.2 T/CUMM (4-12)
[2021-05-17 03:51] LABS: Calcium 9.4 MG/DL (8.5-10.1)
[2021-05-17] MEDS: LACTATED RINGERS 1,000 ML IV SCH (05:06)
[2021-05-17] MEDS: methylPREDNISolone SOD SUC 40 MG/1 ML VIAL IV SCH ×2 (05:58→15:38)
[2021-05-17] MEDS: cefTRIAXone 2,000 MG in SODIUM CHLORIDE 0.9% 100 ML IV SCH (05:58)
[2021-05-17] MEDS ORDERED: ENOXAPARIN 30 MG/0.3 ML SYRINGE SUBCUT SCH (09:00)
[2021-05-17] MEDS ORDERED: ISOSORBIDE MONONITRATE 30 MG TABLET PO SCH (09:00)
[2021-05-17] MEDS: AZITHROMYCIN 250 MG TABLET PO SCH (10:12)
[2021-05-17] MEDS: CLOPIDOGREL 75 MG TABLET PO SCH (10:13)
[2021-05-17] MEDS: hydrALAZINE 25 MG TABLET PO SCH ×2 (10:13→15:45)
[2021-05-17] MEDS: PANTOPRAZOLE 40 MG TABLET PO SCH (10:13)
[2021-05-17] MEDS: carvediloL 3.125 MG TABLET PO SCH (10:13)
[2021-05-17] MEDS: sitaGLIPtin 25 MG TABLET PO SCH (10:13)
[2021-05-17] MEDS: DILTIAZEM 30 MG TABLET PO SCH ×2 (10:13→15:45)
[2021-05-17] MEDS: ASPIRIN EC 81 MG TABLET PO SCH (10:13)
[2021-05-17] MEDS: GABAPENTIN 300 MG CAPSULE PO SCH (10:13)
[2021-05-17] MEDS: FUROSEMIDE 40 MG/4 ML VIAL IV SCH (10:14)
[2021-05-17] MEDS: cycloSPORINE OPH EMUL 1 VIAL BOTH EYES SCH (10:43)
[2021-05-17 12:09] VITALS: BP 97/63
== END 2021-05-17 15:22 | disposition home or self-care (01) | DRG 682 ==
LOC: N.ED 03:07 → INTOOBSV 05:33 → OBSVTOIN 05:33 → N.EDINP 05:33 → N.TELEN 17:31
PROVIDERS: ADMIT Hospitalist; ATTEND Hospitalist

== ENCOUNTER 2021-08-21 19:02 | Inpatient (IN) ==
[2021-08-21] MEDS ORDERED: SODIUM CHLORIDE 0.9% 1,000 ML IV STA ×2 (19:18→20:31)
[2021-08-21 19:31] LABS: Bacteria,Urine Many /HPF (Few); Mucus,Urine Occasional /LPF (Occasional); RBC,Urine 99 /HPF (0-4); Sperm,Urine Moderate /HPF (Negative); Squamous Epithelial Cell,Urine Occasional /HPF (0-10)
[2021-08-21 19:32] LABS: Bilirubin,Urine Negative (Negative); Blood, Urine Moderate mg/dL (Negative); Glucose,Urine (UA) Negative (Negative); Ketones,Urine Negative (Negative); Nitrite,Urine Negative (Negative); Protein,Urine 100 mg/dL (Negative); Urine Appearance Clear (Clear); Urine Color Yellow (Yellow); Urine Urobilinogen 0.2 eU/dL (<2.0); Urine pH 5.5 (4.5-8.0)
[2021-08-21 19:42] LABS: PT Patient Result 11.5 SECS (10.5-12.0)
[2021-08-21 19:50] LABS: Basophils # 0.1 10*3/uL (0.0-0.2); Basophils % 0.6 % (0.0-0.8); Eosinophils # 0.1 10*3/uL (0.0-0.87); Eosinophils % 0.4 % (0.00-10.9); Hematocrit 49.9 VOL% (42.0-52.0); Hemoglobin 15.2 GM/DL (14.0-18.0); Immature Granulocytes % 2.8 %; Immature Granulocytes Absolute 0.47 #; Lymphocytes # 3.1 10*3/uL (1.4-4.0); Lymphocytes % 18.3 % (21.2-54.2); Mean Corpuscular HGB Conc 30.5 GM/DL (32-36); Mean Corpuscular Volume 102.9 FL (87-102); Mean Platelet Volume 11.4 FL (9.6-12.0); NRBC # 0.04 10*3/uL; Neutrophils % 73.9 % (38.7-73.9); Platelet Count 216 T/CUMM (130-400); Red Blood Count 4.85 MC/CUMM (3.8-5.5); Red Cell Distribution Width 13.4 % (9.3-17.3); White Blood Count 17.1 T/CUMM (4-12)
[2021-08-21] MEDS ORDERED: MIDAZOLAM 2 MG/2 ML VIAL ONE (19:55)
[2021-08-21] MEDS ORDERED: MIDAZOLAM 2 MG/2 ML VIAL IV STA (20:00)
[2021-08-21 20:05] LABS: Barbiturates Screen,Urine Negative (Negative); Benzodiazepines Screen,Urine Negative (Negative); Cannabinoid Screen,Urine Negative (Negative); Opiate Screen,Urine Negative (Negative); Phencyclidine Screen,Urine Negative (Negative)
[2021-08-21 20:10] LABS: Arterial Base Excess iSTAT -9 MMOL/L (-2.5-2.5); Arterial Bicarbonate iSTAT 21.8 MMOL/L (20-26); Arterial O2 Saturation iSTAT 100 % (95-100); Arterial PCO2 iSTAT 70 MM HG (35-48); Arterial PO2 iSTAT 642 MM HG (80-95); Arterial Total CO2 iSTAT 24 MMO/L (23-27); Arterial pH iSTAT 7.104 (7.35-7.45)
[2021-08-21] MEDS ORDERED: SODIUM BICARBONATE 50 MEQ/50 ML VIAL IV STA (20:17)
[2021-08-21] MEDS ORDERED: MIDAZOLAM 100 MG in SODIUM CHLORIDE 0.9% 80 ML IV PRN (20:27)
[2021-08-21 20:35] LABS: Albumin 3.4 G/DL (3.4-5.0); Bilirubin,Total 0.6 MG/DL (0.20-1.00); Calcium 10.4 MG/DL (8.5-10.1); Osmolality,Calculated 292.4 MOS/KG (273-304); Potassium 5.6 MMOL/L (3.5-5.1); Total Protein 6.8 G/DL (6.4-8.2)
[2021-08-21] MEDS ORDERED: NOREPINEPHRINE 4 MG/4 ML VIAL IV ONE (20:45)
[2021-08-21] MEDS ORDERED: NOREPINEPHRINE 8 MG in SODIUM CHLORIDE 0.9% 242 ML IV PRN (20:52)
[2021-08-21] MEDS ORDERED: INSULIN REGULAR 100 UNIT/ML IV STA (20:54)
[2021-08-21] MEDS ORDERED: LEVOFLOXACIN INJ 750 MG/150 ML PREMIX IV STA (20:54)
[2021-08-21] MEDS ORDERED: ENOXAPARIN 30 MG/0.3 ML SYRINGE SUBCUT STA (20:57)
[2021-08-21] MEDS ORDERED: ENOXAPARIN 100 MG/ML SYRINGE SUBCUT ONE (20:59)
[2021-08-21] MEDS ORDERED: ALBUTEROL 2.5 MG/3 ML NEB RESP TX PRN (21:20)
[2021-08-21] MEDS ORDERED: NICOTINE 21 MG/24 HR PATCH TRANSDERM PRN (21:28)
[2021-08-21] MEDS ORDERED: ONDANSETRON 4 MG/2 ML VIAL IV PRN (21:28)
[2021-08-21] MEDS ORDERED: GLUCAGON 1 MG VIAL IM PRN (21:48)
[2021-08-21] MEDS ORDERED: DEXTROSE 10% 250 ML BAG IV PRN (21:48)
[2021-08-21] MEDS: PANTOPRAZOLE 40 MG VIAL IV SCH (21:52)
[2021-08-21 21:54] LABS: Arterial Base Excess iSTAT -2 MMOL/L (-2.5-2.5); Arterial Bicarbonate iSTAT 26.5 MMOL/L (20-26); Arterial O2 Saturation iSTAT 99 % (95-100); Arterial PCO2 iSTAT 57 MM HG (35-48); Arterial PO2 iSTAT 133 MM HG (80-95); Arterial Total CO2 iSTAT 28 MMO/L (23-27); Arterial pH iSTAT 7.273 (7.35-7.45)
[2021-08-21 22:39] LABS: Calcium 9.5 MG/DL (8.5-10.1); Osmolality,Calculated 288.8 MOS/KG (273-304); Potassium 5.2 MMOL/L (3.5-5.1)
[2021-08-21 23:04] VITALS: BP 137/69
[2021-08-22] MEDS ORDERED: AMIODARONE 450 MG/9 ML VIAL IV ONE (00:44)
[2021-08-22] MEDS: AMIODARONE INJ 450 MG in DEXTROSE 5% 241 ML IV SCH ×2 (00:49→00:50)
[2021-08-22] MEDS: INSULIN REGULAR 100 UNIT/ML SUBCUT SCH ×4 (01:16→17:35)
[2021-08-22 04:03] LABS: Basophils % 0.2 % (0.0-0.8); Hematocrit 46.6 VOL% (42.0-52.0); Hemoglobin 15.3 GM/DL (14.0-18.0); Immature Granulocytes % 1.4 %; Immature Granulocytes Absolute 0.28 #; Lymphocytes # 0.5 10*3/uL (1.4-4.0); Lymphocytes % 2.7 % (21.2-54.2); Mean Corpuscular HGB Conc 32.8 GM/DL (32-36); Mean Corpuscular Volume 94.7 FL (87-102); Mean Platelet Volume 10.5 FL (9.6-12.0); Monocytes % 3.6 % (1.7-12.7); Neutrophils % 92.1 % (38.7-73.9); Platelet Count 200 T/CUMM (130-400); Red Blood Count 4.92 MC/CUMM (3.8-5.5); Red Cell Distribution Width 13.6 % (9.3-17.3)
[2021-08-22 04:10] LABS: Arterial Base Excess iSTAT 2 MMOL/L (-2.5-2.5); Arterial Bicarbonate iSTAT 27.4 MMOL/L (20-26); Arterial O2 Saturation iSTAT 98 % (95-100); Arterial PCO2 iSTAT 44 MM HG (35-48); Arterial PO2 iSTAT 102 MM HG (80-95); Arterial Total CO2 iSTAT 29 MMO/L (23-27); Arterial pH iSTAT 7.401 (7.35-7.45)
[2021-08-22 04:21] LABS: Band Neutrophils 1 % (0-10); Lymphocytes 5 % (20-55); Platelet Estimate Adequate; Segmented Neutrophils 92 % (50-85); Total Cells Counted 100
[2021-08-22 04:23] LABS: Albumin 3.5 G/DL (3.4-5.0); Bilirubin,Total 0.6 MG/DL (0.20-1.00); Calcium 10.7 MG/DL (8.5-10.1); Osmolality,Calculated 290.8 MOS/KG (273-304); Potassium 3.8 MMOL/L (3.5-5.1)
[2021-08-22] MEDS ORDERED: AMIODARONE INJ 450 MG in DEXTROSE 5% 241 ML IV SCH (08:30)
[2021-08-22] MEDS: SERTRALINE 50 MG TABLET PO SCH (10:09)
[2021-08-22] MEDS: CLOPIDOGREL 75 MG TABLET PO SCH (10:09)
[2021-08-22] MEDS: cycloSPORINE OPH EMUL 1 VIAL BOTH EYES SCH ×2 (10:09→20:57)
[2021-08-22] MEDS: ASPIRIN CHEW 81 MG TABLET PO SCH (10:09)
[2021-08-22] MEDS ORDERED: IBUPROFEN 100 MG/5 ML UDCUP PO PRN (10:16)
[2021-08-22] MEDS ORDERED: POTASSIUM CHLORIDE 20 MEQ TABLET PO ONE (11:27)
[2021-08-22] MEDS: carvediloL 6.25 MG TABLET NG SCH ×2 (12:19→20:57)
[2021-08-22] MEDS: AZITHROMYCIN INJ 500 MG in SODIUM CHLORIDE 0.9% 250 ML IV SCH (16:01)
[2021-08-22] MEDS: hydrALAZINE 25 MG TABLET PO SCH ×2 (16:01→20:57)
[2021-08-22] MEDS: hydrALAZINE 20 MG/1 ML VIAL IV PRN (18:00)
[2021-08-22] MEDS: PANTOPRAZOLE 40 MG VIAL IV SCH (20:59)
[2021-08-22] MEDS ORDERED: predniSONE 10 MG TABLET PO SCH (21:00)
[2021-08-22] MEDS ORDERED: ENOXAPARIN 100 MG/ML SYRINGE SUBCUT SCH (21:30)
[2021-08-22] MEDS ORDERED: hydrALAZINE 20 MG/1 ML VIAL IV ONE (21:56)
[2021-08-22] MEDS ORDERED: SODIUM CHLORIDE 0.9% 500 ML IV ONE (23:18)
[2021-08-23] MEDS: NOREPINEPHRINE 8 MG in SODIUM CHLORIDE 0.9% 242 ML IV PRN ×2 (00:26→03:08)
[2021-08-23 00:31] LABS: Arterial Base Excess iSTAT 3 MMOL/L (-2.5-2.5); Arterial Bicarbonate iSTAT 26.2 MMOL/L (20-26); Arterial O2 Saturation iSTAT 99 % (95-100); Arterial PCO2 iSTAT 36 MM HG (35-48); Arterial PO2 iSTAT 109 MM HG (80-95); Arterial Total CO2 iSTAT 27 MMO/L (23-27); Arterial pH iSTAT 7.469 (7.35-7.45)
[2021-08-23] MEDS: INSULIN REGULAR 100 UNIT/ML SUBCUT SCH ×4 (01:20→17:37)
[2021-08-23] MEDS: DEXAMETHASONE 4 MG/1 ML VIAL IV SCH ×3 (02:26→14:04)
[2021-08-23 03:12] LABS: Calcium 9.7 MG/DL (8.5-10.1); Potassium 3.1 MMOL/L (3.5-5.1)
[2021-08-23 03:25] LABS: Basophils % 0.1 % (0.0-0.8); Hematocrit 41.4 VOL% (42.0-52.0); Hemoglobin 13.9 GM/DL (14.0-18.0); Immature Granulocytes % 0.8 %; Immature Granulocytes Absolute 0.14 #; Lymphocytes % 5.8 % (21.2-54.2); Mean Corpuscular HGB Conc 33.6 GM/DL (32-36); Mean Corpuscular Volume 94.3 FL (87-102); Mean Platelet Volume 11.5 FL (9.6-12.0); Neutrophils % 88.3 % (38.7-73.9); Platelet Count 151 T/CUMM (130-400); Red Blood Count 4.39 MC/CUMM (3.8-5.5); White Blood Count 17.3 T/CUMM (4-12)
[2021-08-23 03:58] LABS: Arterial Base Excess iSTAT 3 MMOL/L (-2.5-2.5); Arterial Bicarbonate iSTAT 25.9 MMOL/L (20-26); Arterial O2 Saturation iSTAT 98 % (95-100); Arterial PCO2 iSTAT 34 MM HG (35-48); Arterial PO2 iSTAT 93 MM HG (80-95); Arterial Total CO2 iSTAT 27 MMO/L (23-27); Arterial pH iSTAT 7.493 (7.35-7.45)
[2021-08-23] MEDS ORDERED: SODIUM CHLORIDE 0.9% IV SCH (04:00)
[2021-08-23] MEDS ORDERED: MANNITOL IV SCH ×2 (04:00)
[2021-08-23] MEDS: POTASSIUM CHLORIDE RIDER 10 MEQ/100 ML PREMIX IV PRN ×5 (04:04→10:23)
[2021-08-23 07:24] LABS: Arterial Base Excess iSTAT 2 MMOL/L (-2.5-2.5); Arterial Bicarbonate iSTAT 24.9 MMOL/L (20-26); Arterial O2 Saturation iSTAT 98 % (95-100); Arterial PCO2 iSTAT 34 MM HG (35-48); Arterial PO2 iSTAT 100 MM HG (80-95); Arterial Total CO2 iSTAT 26 MMO/L (23-27); Arterial pH iSTAT 7.472 (7.35-7.45)
[2021-08-23 07:30] LABS: Albumin 2.9 G/DL (3.4-5.0); Bilirubin,Total 0.9 MG/DL (0.20-1.00); Calcium 9.7 MG/DL (8.5-10.1); Osmolality,Calculated 289.1 MOS/KG (273-304); Potassium 3.6 MMOL/L (3.5-5.1); Total Protein 6.3 G/DL (6.4-8.2)
[2021-08-23] MEDS: carvediloL 6.25 MG TABLET NG SCH (08:36)
[2021-08-23] MEDS: hydrALAZINE 25 MG TABLET PO SCH ×3 (08:36→14:04)
[2021-08-23] MEDS: SERTRALINE 50 MG TABLET PO SCH (08:52)
[2021-08-23] MEDS: cycloSPORINE OPH EMUL 1 VIAL BOTH EYES SCH (08:54)
[2021-08-23] MEDS: CLOPIDOGREL 75 MG TABLET PO SCH (09:03)
[2021-08-23] MEDS: ASPIRIN CHEW 81 MG TABLET PO SCH (09:03)
[2021-08-23] MEDS: hydrALAZINE 20 MG/1 ML VIAL IV PRN (12:31)
[2021-08-23] MEDS: AZITHROMYCIN INJ 500 MG in SODIUM CHLORIDE 0.9% 250 ML IV SCH (14:46)
== END 2021-08-23 18:55 | disposition expired | DRG 896 ==
LOC: EDUNIT# → EDBD → N.ED 19:02 → N.EDINP 21:20 → N.CC 22:54
PROVIDERS: ADMIT Internal Medicine; ATTEND Internal Medicine